=== PATIENT | female | born 1985 | race Hispanic/Latino ===

== ENCOUNTER 2017-12-10 13:48 | Emergency (ER) | payer OTHER ==
--- NOTE | 2017-12-10 15:55 | EDPHYS ---
Physician Documentation [facility] Name: Azalea Nunez Age: 32 yrs Sex: Female : 1985 Arrival Date: 12/10/2017 Time: 13:50 Bed 11 Private MD: Adilson Wellington E ED Physician Sherif Pa HPI: 12/10 15:59 This 32 yrs old Female presents to ER via Ambulatory with complaints of snw Toothache. 15:59 The patient presents with broken tooth/teeth, swelling. The problem is located in the snw upper left first molar (#14). Onset: The symptoms/episode began/occurred 3 month(s) ago, and became worse 3 day(s) ago. Duration: The symptoms are continuous. Associated signs and symptoms: Pertinent positives: fever, swelling. Severity of symptoms: At their worst the symptoms were moderate. It is unknown whether or not the patient has had similar symptoms in the past. The patient has not recently seen a physician. 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 - Social history:: Smoking status: Patient uses tobacco products. ROS: 15:58 Constitutional: Negative for fever, chills, and weight loss, Eyes: Negative for injury, snw pain, redness, and discharge, Neck: Negative for injury, pain, and swelling, Cardiovascular: Negative for chest pain, palpitations, and edema, Respiratory: Negative for shortness of breath, cough, wheezing, and pleuritic chest pain, Abdomen/GI: Negative for abdominal pain, nausea, vomiting, diarrhea, and constipation, Back: Negative for injury and pain, : Negative for injury, bleeding, discharge, and swelling, MS/Extremity: Negative for injury and deformity, Skin: Negative for injury, rash, and discoloration. 15:58 ENT: Positive for ear pain, foreign body sensation, sinus pain. 15:58 Neuro: Positive for headache. Exam: 15:56 Constitutional: This is a well developed, well nourished patient who is awake, alert, snw and in no acute distress. Eyes: Pupils equal round and reactive to light, extra-ocular motions intact. Lids and lashes normal. Conjunctiva and sclera are non-icteric and not injected. Cornea within normal limits. Periorbital areas with no swelling, redness, or edema. Neck: Trachea midline, no thyromegaly or masses palpated, and no cervical lymphadenopathy. Supple, full range of motion without nuchal rigidity, or vertebral point tenderness. No Meningismus. Chest/axilla: Normal chest wall appearance and motion. Nontender with no deformity. No lesions are appreciated. Cardiovascular: Regular rate and rhythm with a normal S1 and S2. No gallops, murmurs, or rubs. Normal PMI, no JVD. No pulse deficits. Respiratory: Lungs have equal breath sounds bilaterally, clear to auscultation and percussion. No rales, rhonchi or wheezes noted. No increased work of breathing, no retractions or nasal flaring. Abdomen/GI: Soft, non-tender, with normal bowel sounds. No distension or tympany. No guarding or rebound. No evidence of tenderness throughout. Back: No spinal tenderness. No costovertebral tenderness. Full range of motion. Skin: Warm, dry with normal turgor. Normal color with no rashes, no lesions, and no evidence of cellulitis. MS/ Extremity: Pulses equal, no cyanosis. Neurovascular intact. Full, normal range of motion. Neuro: Awake and alert, GCS 15, oriented to person, place, time, and situation. Cranial nerves II-XII grossly intact. Motor strength 5/5 in all extremities. Sensory grossly intact. Cerebellar exam normal. Normal gait. Psych: Awake, alert, with orientation to person, place and time. Behavior, mood, and affect are within normal limits. 15:56 Head/face: Noted is swelling, that is mild, of the left cheek. 15:56 ENT: TM's: are normal, Nose: is normal, Mouth: is normal, Posterior pharynx: swelling, that is mild, erythema, that is mild, that is moderate, Dental exam: fractured teeth are noted, specifically the upper left first molar (#14), Voice: is normal. Vital Signs: 14:05 BP 152 / 96; Pulse 63; Resp 18; Temp 97.5(TE); Pulse Ox 99% on R/A; Weight 140.61 kg; hj Height 5 ft. 4 in. (162.56 cm); Pain 10/10; 14:05 Body Mass Index 53.21 (140.61 kg, 162.56 cm) hj MDM: 15:53 Patient medically screened. snw 15:57 Data reviewed: vital signs, nurses notes. Data interpreted: Pulse oximetry: on room air snw is 99 %. Interpretation: normal. Counseling: I had a detailed discussion with the patient and/or guardian regarding: the historical points, exam findings, and any diagnostic results supporting the discharge/admit diagnosis, the presence of at least one elevated blood pressure reading (>120/80) during this emergency department visit, the need for outpatient follow up, to return to the emergency department if symptoms worsen or persist or if there are any questions or concerns that arise at home. Special discussion: I have referred the patient to see his PCP for further evaluation of high blood pressure. Based on the history and exam findings, there is no indication for further emergent testing or inpatient evaluation. I discussed with the patient/guardian the need to see a dentist for further evaluation of the symptoms. I discussed with the patient/guardian the need to see the primary care provider for further evaluation of the symptoms. Administered Medications: 16:24 Drug: Clindamycin 300 mg Route: PO; em 16:24 Drug: TORadol 60 mg Route: IM; Site: right deltoid; em Disposition: 12/11 14:48 Co-signature as Attending Physician, Sherif Pa MD I agree with the assessment and troy plan of care. Disposition: 12/10/17 15:54 Discharged to Home. Impression: Diseases of pulp and periapical tissues. - Condition is Stable. - Discharge Instructions: Dental Abscess, Dental Fracture, Dental Pain. - Prescriptions for chlorhexidine gluconate 0.12 % Mucous Membrane mouthwash - place 15 milliliter by MUCOUS MEMBRANE route 2 times per day after brushing teeth, swish in mouth for 30 seconds then spit out; 480 milliliter. Clindamycin HCl 300 mg Oral Capsule - take 1 capsule by ORAL route every 6 hours for 10 days; 40 capsule. Diclofenac Sodium 75 mg Oral Tablet Sustained Release - take 1 tablet by ORAL route 2 times per day; 30 tablet. - Medication Reconciliation Form, Thank You Letter, Antibiotic Education, Prescription Opioid Use, Work release form form. - Follow up: Private Physician; When: 2 - 3 days; Reason: Recheck today's complaints, Continuance of care, Re-evaluation by your physician. Follow up: Emergency Department; When: As needed; Reason: Worsening of condition. Signatures: Sherif Pa MD MD cha Therrien, Shelly, DRILL PRESS OPERATOR FOR METAL-C DRILL PRESS OPERATOR FOR METAL-Csnw Claudio Chanel, WEB OPERATIONS LEAD WEB OPERATIONS LEAD Kaylan Franco, RN RN Jaxson Rahman RN RN
--- NOTE | 2017-12-10 15:55 | ER ---
Nurse's Notes [facility] Name: Azalea Nunez Age: 32 yrs Sex: Female : 1985 Arrival Date: 12/10/2017 Time: 13:50 Bed 11 Private MD: Adilson Wellington E Diagnosis: Diseases of pulp and periapical tissues Presentation: 12/10 14:02 Presenting complaint: Patient states: L part of my jaw is aching for a week now; i hj thinks its my tooth; i couldn't get an appointment with my dentist right away;. Transition of care: patient was not received from another setting of care. Onset of symptoms was December 10, 2017. Care prior to arrival: None. 14:02 Method Of Arrival: Ambulatory 14:02 Acuity: VEL 4 hj Triage Assessment: 14:04 General: Appears in no apparent distress. uncomfortable, Behavior is calm, cooperative, hj appropriate for age. Pain: Complains of pain in left cheek and left jaw. EENT: Reports pain in left cheek and left jaw. 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 - Social history:: Smoking status: Patient uses tobacco products. Screenin:20 Abuse screen: Denies threats or abuse. Denies injuries from another. Nutritional iw screening: No deficits noted. Tuberculosis screening: No symptoms or risk factors identified. Fall Risk None identified. Assessment: 16:00 General: Appears in no apparent distress. Behavior is calm, cooperative. Pain: iw Complains of pain in left jaw and left cheek. Neuro: Level of Consciousness is awake, alert, obeys commands, Oriented to person, place, time, situation. Cardiovascular: Patient's skin is warm and dry. Respiratory: Respiratory effort is even, unlabored, Respiratory pattern is regular, symmetrical. Derm: Skin is pink, warm \T\ dry. normal. Musculoskeletal: Range of motion: intact in all extremities. Vital Signs: 14:05 BP 152 / 96; Pulse 63; Resp 18; Temp 97.5(TE); Pulse Ox 99% on R/A; Weight 140.61 kg; hj Height 5 ft. 4 in. (162.56 cm); Pain 10/10; 14:05 Body Mass Index 53.21 (140.61 kg, 162.56 cm) ED Course: 13:50 Patient arrived in ED. rg4 13:50 Adilson Wellington MD is Private Physician. rg4 14:03 Triage completed. hj 14:04 Arm band placed on left wrist. hj 15:44 Kaylan Nunez, RN is Primary Nurse. iw 15:46 Bibi Maurer FNP-C is PHCP. snw 15:46 Sherif Pa MD is Attending Physician. snw 16:20 Patient has correct armband on for positive identification. iw 16:20 No provider procedures requiring assistance completed. IV discontinued. iw Administered Medications: 16:24 Drug: Clindamycin 300 mg Route: PO; em 16:24 Drug: TORadol 60 mg Route: IM; Site: right deltoid; em Outcome: 15:54 Discharge ordered by . snw 16:28 Discharged to home ambulatory. iw 16:28 Condition: good 16:28 Discharge instructions given to patient, Instructed on discharge instructions, follow up and referral plans. medication usage, Demonstrated understanding of instructions, follow-up care, medications, Prescriptions given X 2. 16:29 Patient left the ED. iw Signatures: Bibi Maurer FNP-C VICE PRESIDENT PLANNING-Csnw Claudio Chanel, TURNER SPLITTER MACHINE OPERATOR TURNER SPLITTER MACHINE OPERATOR em Kaylan Nunez RN RN iw Jaxson Ojeda RN RN Radha Fernández rg4 Corrections: (The following items were deleted from the chart) 14:07 14:05 Pulse 63bpm; Resp 18bpm; Pulse Ox 99% RA; Temp 97.5F Temporal; 140.61 kg; Height hj 5 ft. 4 in.; BMI: 53.2; Pain 10/10; hj
[2017-12-10 16:33] VITALS: BP 152/96; TEMP 97.5; O2SAT 99
[2017-12-10] MEDS ORDERED: CLINDAMYCIN HCL 150 MG CAP ONE (16:37)
[2017-12-10] MEDS ORDERED: KETOROLAC 30 MG/ML INJ ONE (16:37)
== END 2017-12-10 16:29 | disposition home or self-care (01) ==
LOC: ER 13:48
DX: K04.99 Other diseases of pulp and periapical tissues; F17.220 Nicotine dependence, chewing tobacco, uncomplicated
CPT/HCPCS: 96372; 99283

== ENCOUNTER 2018-05-07 05:15 | Emergency (ER) | payer OTHER ==
--- OUTSIDE RECORDS SUMMARY | 2018-05-07 05:17 | XMS REPORT ---
:1985 [facility] Providers Name Role Phone Sudha Jimenez Provider Role Unavailable Allergies, Adverse Reactions, Alerts Substance Reaction Event Type N.K.D.A. Info Not Available Non Drug Allergy Problems Problem Type Condition Code Onset Dates Condition Status Assessment Abnormal urine odor R82.90 Active Problem Major depressive disorder, single F32.9 Active episode, unspecified Problem Anxiety disorder, unspecified F41.9 Active Problem Essential hypertension I10 Active Assessment Vaginal itching N89.8 Active Problem BMI 60.0-69.9, adult Z68.44 Active Problem Hypomenorrhea N91.5 Active Medications Medication Code Code Instructions Start End Status Dosage System Date Date Losartan [facility] 44027010450 50 MG Orally Active 1 tablet Potassium Once a day Lorazepam [facility] 80626402993 1 MG Orally Active 1 tablet Once a day at bedtime as needed Diflucan [facility] 82930405153 150 MG Orally Apr 29, May 01, Active 1 tablet Take one now 2017 2017 and repeat dose in 72h Citalopram [facility] 72190147487 10 MG Orally Active 1 tablet Hydrobromide Once a day Metoprolol [facility] 77503737336 100 MG Orally Active 1 tablet Tartrate Twice a day with food Trazodone HCl [facility] 79665810346 50 MG Orally Active 1 tablet Once a day at bedtime as needed Bactrim DS [facility] 82899697447 800-160 MG Apr 29, May 02, Active 1 tablet Orally Twice a 2017 2017 day Results Name Result Date Reference Range Unit Abnormality Flag URINALYSIS AUTO W/O SCOPE (68800) ----NIT neg [id number] ----URO 0.2 [id number] ----PROTEIN neg [id number] ----pH 6.5 [id number] ----BLO 2+ [id number] ----GLUCOSE neg [id number] ----KOSTAS neg [id number] ----BILIRUBIN neg [id number] ----KETONES neg [id number] ----SPECIFIC GRAVITY 1.020 [id number] Summary Purpose eClinicalWorks Submission
--- NOTE | 2018-05-07 05:51 | EDPHYS ---
Physician Documentation [facility] Name: Azalea Nunez Age: 32 yrs Sex: Female : 1985 Arrival Date: 05/07/2018 Time: 05:19 Bed 8 Private MD: Adilson Wellington E ED Physician Sherif Pa HPI: 05/07 05:43 This 32 yrs old Female presents to ER via Ambulatory with complaints of troy Headache, Eye Pain. 05:43 The patient complains of pain to the right cheek, right jaw and right zygomatic area. troy The patient describes the headache as aching. Onset: The symptoms/episode began/occurred 5 day(s) ago. Associated signs and symptoms: The patient has no apparent associated signs or symptoms. Severity of symptoms: At its worst the pain was moderate, in the emergency department the pain is unchanged. Headache History: Denies prior headaches. The symptoms are alleviated by nothing. The patient has not experienced similar symptoms in the past. 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 - Social history:: Smoking status: Patient/guardian denies using tobacco. - Ebola Screening: : No symptoms or risks identified at this time. - Family history:: not pertinent. ROS: 05:43 Constitutional: Negative for fever, chills, and weight loss, Eyes: Negative for injury, troy pain, redness, and discharge, Neck: Negative for injury, pain, and swelling, Cardiovascular: Negative for chest pain, palpitations, and edema, Respiratory: Negative for shortness of breath, cough, wheezing, and pleuritic chest pain, Abdomen/GI: Negative for abdominal pain, nausea, vomiting, diarrhea, and constipation, Back: Negative for injury and pain, : Negative for injury, bleeding, discharge, and swelling, MS/Extremity: Negative for injury and deformity, Skin: Negative for injury, rash, and discoloration, Neuro: Negative for headache, weakness, numbness, tingling, and seizure, Psych: Negative for depression, anxiety, suicide ideation, homicidal ideation, and hallucinations, Allergy/Immunology: Negative for hives, rash, and allergies, Endocrine: Negative for neck swelling, polydipsia, polyuria, polyphagia, and marked weight changes, Hematologic/Lymphatic: Negative for swollen nodes, abnormal bleeding, and unusual bruising. 05:43 ENT: Positive for Gum pain Teeth pain Exam: 05:43 Constitutional: This is a well developed, well nourished patient who is awake, alert, troy and in no acute distress. Head/Face: Normocephalic, atraumatic. Eyes: Pupils equal round and reactive to light, extra-ocular motions intact. Lids and lashes normal. Conjunctiva and sclera are non-icteric and not injected. Cornea within normal limits. Periorbital areas with no swelling, redness, or edema. Neck: Trachea midline, no thyromegaly or masses palpated, and no cervical lymphadenopathy. Supple, full range of motion without nuchal rigidity, or vertebral point tenderness. No Meningismus. Chest/axilla: Normal chest wall appearance and motion. Nontender with no deformity. No lesions are appreciated. Cardiovascular: Regular rate and rhythm with a normal S1 and S2. No gallops, murmurs, or rubs. Normal PMI, no JVD. No pulse deficits. Respiratory: Lungs have equal breath sounds bilaterally, clear to auscultation and percussion. No rales, rhonchi or wheezes noted. No increased work of breathing, no retractions or nasal flaring. Abdomen/GI: Soft, non-tender, with normal bowel sounds. No distension or tympany. No guarding or rebound. No evidence of tenderness throughout. Back: No spinal tenderness. No costovertebral tenderness. Full range of motion. Skin: Warm, dry with normal turgor. Normal color with no rashes, no lesions, and no evidence of cellulitis. MS/ Extremity: Pulses equal, no cyanosis. Neurovascular intact. Full, normal range of motion. Neuro: Awake and alert, GCS 15, oriented to person, place, time, and situation. Cranial nerves II-XII grossly intact. Motor strength 5/5 in all extremities. Sensory grossly intact. Cerebellar exam normal. Normal gait. Psych: Awake, alert, with orientation to person, place and time. Behavior, mood, and affect are within normal limits. 05:43 ENT: Mouth: Gums: reddened, swollen, on the lower right third molar (#32). Vital Signs: 05:30 BP 180 / 84; Pulse 75; Resp 18; Temp 97.2(TE); Pulse Ox 97% on R/A; Weight 133.81 kg; tl2 Height 5 ft. 4 in. (162.56 cm); Pain 10/10; 05:30 Body Mass Index 50.64 (133.81 kg, 162.56 cm) tl2 MDM: 05:24 Patient medically screened. troy Administered Medications: 05:51 Drug: Augmentin 875 mg Route: PO; tl2 06:07 Follow up: Response: No adverse reaction tl2 05:51 Drug: Motrin 600 mg Route: PO; tl2 06:07 Follow up: Response: No adverse reaction; Medication administered at discharge. tl2 Disposition: 05/07/18 05:50 Discharged to Home. Impression: Dental caries, Dental root caries. - Condition is Stable. - Discharge Instructions: Dental Abscess, Dental Caries, Adult, Dental Pain, Dental Pain, [id number], Root Canal, Diet and Dental Disease, Dental Caries, [id number]. - Prescriptions for Augmentin 500- 125 mg Oral Tablet - take 1 tablet by ORAL route every 8 hours for 10 days; 30 tablet. Tylenol- Codeine #3 300-30 mg Oral Tablet - take 2 tablets by ORAL route every 6 hours As needed; 26 tablet. - Medication Reconciliation Form, Thank You Letter, Antibiotic Education, Prescription Opioid Use form. - Follow up: Adilson Wellington MD; When: 2 - 3 days; Reason: Recheck today's complaints, Continuance of care, Re-evaluation by your physician. Follow up: Sreedhar Ash DDS; When: 2 - 3 days; Reason: Recheck today's complaints, Re-evaluation by your physician. - Problem is new. - Symptoms have improved. Signatures: Sherif Pa MD MD cha Knox, Taylor, RN RN tl2 Corrections: (The following items were deleted from the chart) 06:07 05:50 05/07/2018 05:50 Discharged to Home. Impression: Dental caries; Dental root tl2 caries. Condition is Stable. Forms are Medication Reconciliation Form, Thank You Letter, Antibiotic Education, Prescription Opioid Use. Follow up: Adilson Wellington; When: 2 - 3 days; Reason: Recheck today's complaints, Continuance of care, Re-evaluation by your physician. Follow up: Sreedhar Ash; When: 2 - 3 days; Reason: Recheck today's complaints, Re-evaluation by your physician. Problem is new. Symptoms have improved. troy
--- NOTE | 2018-05-07 05:51 | ER ---
Nurse's Notes [facility] Name: Azalea Nunez Age: 32 yrs Sex: Female : 1985 Arrival Date: 05/07/2018 Time: 05:19 Bed 8 Private MD: Adilson Wellington E Diagnosis: Dental caries;Dental root caries Presentation: 05/07 05:29 Presenting complaint: Patient states: I think my wisdom teeth are infected. It's making tl2 my ears and my head hurt. symptoms for 5 days. Denies fever. Transition of care: patient was not received from another setting of care. Onset of symptoms was May 02, 2018. Risk Assessment: Do you want to hurt yourself or someone else? Patient reports no desire to harm self or others. Initial Sepsis Screen: Does the patient meet any 2 criteria? No. Patient's initial sepsis screen is negative. Does the patient have a suspected source of infection? No. Patient's initial sepsis screen is negative. Care prior to arrival: None. 05:29 Method Of Arrival: Ambulatory tl2 05:29 Acuity: VEL 4 tl2 Triage Assessment: 05:30 Headache History: Denies prior headaches. General: Appears in no apparent distress. tl2 uncomfortable, Behavior is calm, cooperative, appropriate for age. Pain: Complains of pain in teeth, headache Pain currently is 10 out of 10 on a pain scale. Pain began 2-3 days ago. Also complains of no other associated symptoms. EENT: Dental caries noted in lower left third molar (#17) and lower right third molar (#32). Neuro: Level of Consciousness is awake, alert, obeys commands. Cardiovascular: Denies chest pain. Respiratory: Airway is patent Respiratory effort is even, unlabored, Respiratory pattern is regular, symmetrical. 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 - Social history:: Smoking status: Patient/guardian denies using tobacco. - Ebola Screening: : No symptoms or risks identified at this time. - Family history:: not pertinent. Screenin:32 Abuse screen: Denies threats or abuse. Nutritional screening: No deficits noted. tl2 Tuberculosis screening: No symptoms or risk factors identified. Fall Risk None identified. Assessment: 05:30 General: see triage assessment. tl2 06:06 Reassessment: Patient appears in no apparent distress at this time. Patient and/or tl2 family updated on plan of care and expected duration. Pain level reassessed. Patient is alert, oriented x 3, equal unlabored respirations, skin warm/dry/pink. Pt verbalized understanding of discharge instructions, need for follow up and prescription usage. Vital Signs: 05:30 BP 180 / 84; Pulse 75; Resp 18; Temp 97.2(TE); Pulse Ox 97% on R/A; Weight 133.81 kg; tl2 Height 5 ft. 4 in. (162.56 cm); Pain 10/10; 05:30 Body Mass Index 50.64 (133.81 kg, 162.56 cm) tl2 ED Course: 05:19 Patient arrived in ED. al2 05:19 Adilson Wellington MD is Private Physician. al2 05:24 Sherif Pa MD is Attending Physician. [facility] 05:30 Triage completed. tl2 05:30 Arm band placed on right wrist. tl2 05:32 Patient has correct armband on for positive identification. Bed in low position. Call tl2 light in reach. Side rails up X 1. 05:49 Adilson Wellington MD is Referral Physician. troy 05:49 Sreedhar Ash DDS is Referral Physician. troy 06:05 Roxi Blandon RN is Primary Nurse. tl2 06:06 No provider procedures requiring assistance completed. Patient did not have IV access tl2 during this emergency room visit. Administered Medications: 05:51 Drug: Augmentin 875 mg Route: PO; tl2 06:07 Follow up: Response: No adverse reaction tl2 05:51 Drug: Motrin 600 mg Route: PO; tl2 06:07 Follow up: Response: No adverse reaction; Medication administered at discharge. tl2 Outcome: 05:50 Discharge ordered by . troy 06:06 Discharged to home ambulatory. tl2 06:06 Condition: stable 06:06 Discharge instructions given to patient, Instructed on discharge instructions, follow up and referral plans. medication usage, Demonstrated understanding of instructions, follow-up care, medications, Prescriptions given X 2. 06:07 Patient left the ED. tl2 Signatures: Sherif Pa MD MD cha Knox, Taylor, RN RN tl2 Fatou Smith
[2018-05-07] MEDS ORDERED: IBUPROFEN 200 MG TAB PO ONE (05:52)
[2018-05-07] MEDS ORDERED: AMOX/K CLAV 875 MG TAB ONE (05:53)
[2018-05-07 06:13] VITALS: BP 180/84; TEMP 97.2; O2SAT 97
== END 2018-05-07 06:07 | disposition home or self-care (01) ==
LOC: ER 05:15
DX: K02.7 Dental root caries (principal); I10 Essential (primary) hypertension; F32.9 Major depressive disorder, single episode, unspecified
CPT/HCPCS: 99283

== ENCOUNTER 2018-09-22 08:05 | Emergency (ER) | payer SELFPAY ==
--- OUTSIDE RECORDS SUMMARY | 2018-09-22 08:07 | XMS REPORT ---
:1985 [facility] Care Team Providers Name Role Phone [...] End Status Dosage System Date Date Losartan [facility] 84420930512 50 MG Orally Active 1 tablet Potassium Once a day Lorazepam [facility] 45299672617 1 MG Orally Active 1 tablet Once a day at bedtime as needed Diflucan [facility] 02236981587 150 MG Orally Apr 29, May 01, Active 1 tablet Take one now 2017 2017 and repeat dose in 72h Citalopram [facility] 83783222113 10 MG Orally Active 1 tablet Hydrobromide Once a day Metoprolol [facility] 91171191526 100 MG Orally Active 1 tablet Tartrate Twice a day with food Trazodone HCl [facility] 02575276818 50 MG Orally Active 1 tablet Once a day at bedtime as needed Bactrim DS [facility] 45323555530 800-160 MG Apr 29, May 02, Active 1 tablet Orally Twice a 2017 2017 day Results Name Result Date Reference Range Unit Abnormality Flag URINALYSIS AUTO W/O SCOPE (68409) ----NIT neg [id number] ----URO 0.2 [id number] ----PROTEIN neg [id number] ----pH 6.5 [id number] ----BLO 2+ [id number] ----GLUCOSE neg [id number] ----KOSTAS neg [id number] ----BILIRUBIN neg [id number] ----KETONES neg [id number] ----SPECIFIC GRAVITY 1.020 [id number] Summary Purpose eClinicalWorks Submission
[2018-09-22] MEDS ORDERED: KETOROLAC 30 MG/ML INJ ONE (09:02)
--- NOTE | 2018-09-22 09:04 | ER ---
Nurse's Notes [facility] Name: Azalea Nunez Age: 33 yrs Sex: Female : 1985 Arrival Date: 09/22/2018 Time: 08:06 Bed 16 Private MD: Adilson Wellington E Diagnosis: Disorders of tooth development and eruption Presentation: 09/22 08:28 Presenting complaint: Patient states: dental pain that began last night. Denies fever. ss Transition of care: patient was not received from another setting of care. Onset of symptoms was September 21, 2018. Risk Assessment: Do you want to hurt yourself or someone else? Patient reports no desire to harm self or others. Initial Sepsis Screen: Does the patient meet any 2 criteria? No. Patient's initial sepsis screen is negative. Does the patient have a suspected source of infection? No. Patient's initial sepsis screen is negative. Care prior to arrival: None. 08:28 Method Of Arrival: Ambulatory ss 08:28 Acuity: VEL 5 ss Historical: - Allergies: 08:29 No Known Allergies; ss - Home Meds: 08:29 losartan 100 mg oral tab 1 tab once daily [Active]; Celexa 40 mg Oral tab 1 tab once ss daily [Active]; lorazepam Oral [Active]; - PMHx: 08:29 Depression; Hypertension; ss - PSHx: 08:29 None; ss - Immunization history:: Adult Immunizations up to date. - Social history:: Smoking status: Patient/guardian denies using tobacco. - Ebola Screening: : Patient denies exposure to infectious person Patient denies travel to an Ebola-affected area in the 21 days before illness onset. Screenin:56 Abuse screen: Denies threats or abuse. Denies injuries from another. Nutritional sv screening: No deficits noted. Tuberculosis screening: No symptoms or risk factors identified. Fall Risk None identified. Assessment: 08:45 General: Appears in no apparent distress. Behavior is calm, cooperative. Pain: Pain hb currently is 10 out of 10 on a pain scale. Neuro: Level of Consciousness is awake, alert, obeys commands, Oriented to person, place, time, situation. Cardiovascular: Capillary refill < 3 seconds Patient's skin is warm and dry. Respiratory: Airway is patent Respiratory effort is even, unlabored, Respiratory pattern is regular, symmetrical. GI: No signs and/or symptoms were reported involving the gastrointestinal system. : No signs and/or symptoms were reported regarding the genitourinary system. EENT: Reports right lower jaw and molar pain. Derm: Skin is intact, is healthy with good turgor. Musculoskeletal: No signs and/or symptoms reported regarding the musculoskeletal system. Vital Signs: 08:29 BP 147 / 93; Pulse 96; Resp 16; Temp 97.4(TE); Pulse Ox 99% on R/A; Weight 138.35 kg; ss Height 5 ft. 4 in. (162.56 cm); Pain 10/10; 08:29 Body Mass Index 52.35 (138.35 kg, 162.56 cm) ss ED Course: 08:06 Patient arrived in ED. sb2 08:06 Adilson Wellington MD is Private Physician. sb2 08:28 Triage completed. ss 08:29 Arm band placed on right wrist. ss 08:31 [facility] snw 08:31 Sherif Pa MD is Attending Physician. snw 08:56 Patient has correct armband on for positive identification. Bed in low position. Door sv closed. Head of bed elevated. 08:59 Tina Arellano, RN is Primary Nurse. hb 09:20 No provider procedures requiring assistance completed. Patient did not have IV access hb during this emergency room visit. Administered Medications: 08:55 Drug: TORadol 60 mg Route: IM; Site: right gluteus; sv 09:23 Follow up: Response: No adverse reaction hb Outcome: 09:04 Discharge ordered by . snw 09:20 Discharged to home ambulatory. hb 09:20 Condition: stable 09:20 Discharge instructions given to patient, Instructed on discharge instructions, follow up and referral plans. medication usage, Demonstrated understanding of instructions, follow-up care, medications, Prescriptions given X 1. 09:21 Patient left the ED. hb Signatures: Magy Huizar RN RN Bibi Maurer FNP-C FNP-Janett Benoit RN RN Tina Arellano RN RN Sandra Cisse sb2
--- NOTE | 2018-09-22 09:04 | EDPHYS ---
Physician Documentation [facility] Name: Azalea Nunez Age: 33 yrs Sex: Female : 1985 Arrival Date: 09/22/2018 Time: 08:06 Bed 16 Private MD: Adilson Wellington E ED Physician Sherif Pa HPI: 09/22 09:07 This 33 yrs old Female presents to ER via Ambulatory with complaints of snw Toothache. 09:07 The patient presents with pain, lower wisdom teeth pain. The problem is located in the snw lower right third molar (#32) and lower left third molar (#17). Onset: The symptoms/episode began/occurred suddenly, yesterday. Duration: The symptoms are continuous. Associated signs and symptoms: The patient has no apparent associated signs or symptoms. Severity of symptoms: At their worst the symptoms were moderate. It is unknown whether or not the patient has had similar symptoms in the past. The patient has not recently seen a physician, and does not have an established primary care provider. Historical: - Allergies: 08:29 No Known Allergies; ss - Home Meds: 08:29 losartan 100 mg oral tab 1 tab once daily [Active]; Celexa 40 mg Oral tab 1 tab once ss daily [Active]; lorazepam Oral [Active]; - PMHx: 08:29 Depression; Hypertension; ss - PSHx: 08:29 None; ss - Immunization history:: Adult Immunizations up to date. - Social history:: Smoking status: Patient/guardian denies using tobacco. - Ebola Screening: : Patient denies exposure to infectious person Patient denies travel to an Ebola-affected area in the 21 days before illness onset. ROS: 09:06 Constitutional: Negative for fever, chills, and weight loss, Eyes: Negative for injury, snw pain, redness, and discharge, Neck: Negative for injury, pain, and swelling, Cardiovascular: Negative for chest pain, palpitations, and edema, Respiratory: Negative for shortness of breath, cough, wheezing, and pleuritic chest pain, Abdomen/GI: Negative for abdominal pain, nausea, vomiting, diarrhea, and constipation, Back: Negative for injury and pain, : Negative for injury, bleeding, discharge, and swelling, MS/Extremity: Negative for injury and deformity, Skin: Negative for injury, rash, and discoloration, Neuro: Negative for headache, weakness, numbness, tingling, and seizure. 09:06 ENT: Positive for dental pain, of the lower right third molar (#32) and lower left third molar (#17). Exam: 09:05 Constitutional: This is a well developed, well nourished patient who is awake, alert, snw and in no acute distress. Head/Face: Normocephalic, atraumatic. Eyes: Pupils equal round and reactive to light, extra-ocular motions intact. Lids and lashes normal. Conjunctiva and sclera are non-icteric and not injected. Cornea within normal limits. Periorbital areas with no swelling, redness, or edema. Neck: Trachea midline, no thyromegaly or masses palpated, and no cervical lymphadenopathy. Supple, full range of motion without nuchal rigidity, or vertebral point tenderness. No Meningismus. Chest/axilla: Normal chest wall appearance and motion. Nontender with no deformity. No lesions are appreciated. Cardiovascular: Regular rate and rhythm with a normal S1 and S2. No gallops, murmurs, or rubs. Normal PMI, no JVD. No pulse deficits. Respiratory: Lungs have equal breath sounds bilaterally, clear to auscultation and percussion. No rales, rhonchi or wheezes noted. No increased work of breathing, no retractions or nasal flaring. Abdomen/GI: Soft, non-tender, with normal bowel sounds. No distension or tympany. No guarding or rebound. No evidence of tenderness throughout. Back: No spinal tenderness. No costovertebral tenderness. Full range of motion. Skin: Warm, dry with normal turgor. Normal color with no rashes, no lesions, and no evidence of cellulitis. MS/ Extremity: Pulses equal, no cyanosis. Neurovascular intact. Full, normal range of motion. Neuro: Awake and alert, GCS 15, oriented to person, place, time, and situation. Cranial nerves II-XII grossly intact. Motor strength 5/5 in all extremities. Sensory grossly intact. Cerebellar exam normal. Normal gait. Psych: Awake, alert, with orientation to person, place and time. Behavior, mood, and affect are within normal limits. 09:05 ENT: TM's: are normal, Nose: is normal, Mouth: is normal, Posterior pharynx: is normal, Dental exam: gum swelling, that is moderate, pain, that is moderate, specifically in the lower left third molar (#17) and lower right third molar (#32). Vital Signs: 08:29 BP 147 / 93; Pulse 96; Resp 16; Temp 97.4(TE); Pulse Ox 99% on R/A; Weight 138.35 kg; ss Height 5 ft. 4 in. (162.56 cm); Pain 10/10; 08:29 Body Mass Index 52.35 (138.35 kg, 162.56 cm) ss MDM: 08:33 Patient medically screened. snw 09:06 Data reviewed: vital signs, nurses notes. Data interpreted: Pulse oximetry: on room air snw is 99 %. Interpretation: normal. Counseling: I had a detailed discussion with the patient and/or guardian regarding: the historical points, exam findings, and any diagnostic results supporting the discharge/admit diagnosis, the presence of at least one elevated blood pressure reading (>120/80) during this emergency department visit, the need for outpatient follow up, to return to the emergency department if symptoms worsen or persist or if there are any questions or concerns that arise at home. Special discussion: I have referred the patient to see his PCP for further evaluation of high blood pressure. Based on the history and exam findings, there is no indication for further emergent testing or inpatient evaluation. I discussed with the patient/guardian the need to see a dentist for further evaluation of the symptoms. I discussed with the patient/guardian the need to see the primary care provider for further evaluation of the symptoms. Administered Medications: 08:55 Drug: TORadol 60 mg Route: IM; Site: right gluteus; sv 09:23 Follow up: Response: No adverse reaction hb Disposition: 15:03 Co-signature as Attending Physician, Sherif Pa MD I agree with the assessment and troy plan of care. Disposition: 09/22/18 09:04 Discharged to Home. Impression: Disorders of tooth development and eruption. - Condition is Stable. - Discharge Instructions: Dental Pain, Hypertension, Preventive Dental Care, Adult. - Prescriptions for Diclofenac Sodium 75 mg Oral Tablet Sustained Release - take 1 tablet by ORAL route 2 times per day; 30 tablet. - Medication Reconciliation Form, Thank You Letter, Antibiotic Education, Prescription Opioid Use form. - Follow up: Private Physician; When: 1 - 2 days; Reason: Recheck today's complaints, Continuance of care, Re-evaluation by your physician. Follow up: Emergency Department; When: As needed; Reason: Worsening of condition. Signatures: Magy Huizar, RN Sherif Shearer MD MD cha Therrien, Shelly, BELT TURNER-C BELT TURNER-Csnw Janett Goetz RN RN ss Tina Arellano RN RN hb Corrections: (The following items were deleted from the chart) 09:21 09:04 09/22/2018 09:04 Discharged to Home. Impression: Disorders of tooth development hb and eruption. Condition is Stable. Forms are Medication Reconciliation Form, Thank You Letter, Antibiotic Education, Prescription Opioid Use. Follow up: Private Physician; When: 1 - 2 days; Reason: Recheck today's complaints, Continuance of care, Re-evaluation by your physician. Follow up: Emergency Department; When: As needed; Reason: Worsening of condition. snw
[2018-09-22 09:32] VITALS: BP 147/93; TEMP 97.4; O2SAT 99
== END 2018-09-22 09:21 | disposition home or self-care (01) ==
LOC: ER 08:05
DX: K00.6 Disturbances in tooth eruption (principal); I10 Essential (primary) hypertension; F32.9 Major depressive disorder, single episode, unspecified
CPT/HCPCS: 96372; 99283

== ENCOUNTER 2018-10-22 22:07 | Emergency (ER) | payer SELFPAY ==
--- OUTSIDE RECORDS SUMMARY | 2018-10-22 22:10 | XMS REPORT ---
:1985 [email or web address] Care Team Providers Name Role Phone Sudha [...] End Status Dosage System Date Date Losartan [facility] 00155907895 50 MG Orally Active 1 tablet Potassium Once a day Lorazepam [facility] 01144674635 1 MG Orally Active 1 tablet Once a day at bedtime as needed Diflucan [facility] 64221492407 150 MG Orally Apr 29, May 01, Active 1 tablet Take one now 2017 2017 and repeat dose in 72h Citalopram [facility] 91317019650 10 MG Orally Active 1 tablet Hydrobromide Once a day Metoprolol [facility] 72939728206 100 MG Orally Active 1 tablet Tartrate Twice a day with food Trazodone HCl [facility] 76143604526 50 MG Orally Active 1 tablet Once a day at bedtime as needed Bactrim DS [facility] 47351945415 800-160 MG Apr 29, May 02, Active 1 tablet Orally Twice a 2017 2017 day Results Name Result Date Reference Range Unit Abnormality Flag URINALYSIS AUTO W/O SCOPE (48805) ----NIT neg [id number] ----URO 0.2 [id number] ----PROTEIN neg [id number] ----pH 6.5 [id number] ----BLO 2+ [id number] ----GLUCOSE neg [id number] ----KOSTAS neg [id number] ----BILIRUBIN neg [id number] ----KETONES neg [id number] ----SPECIFIC GRAVITY 1.020 [id number] Summary Purpose eClinicalWorks Submission
[2018-10-22 23:26] LABS: Absolute Lymphocytes (CBC) 1.6 K/uL (0.7-4.9); Absolute Monocytes 0.4 K/uL (0.1-1.3); Basophils % 0.6 % (0-1.3); Hematocrit 32.9 % (36.0-45.0); Lymphocytes % 17.6 % (15.3-44.8); MPV 9.1 fL (7.6-11.3); Monocytes % 4.4 % (3.3-12.3); RBC Red Blood Cell Count 4.07 M/uL (3.86-4.86)
[2018-10-22 23:38] LABS: Albumin 3.5 g/dL (3.4-5.0); Bilirubin Total 0.3 mg/dL (0.2-1.0); Potassium 3.5 mmol/L (3.5-5.1); Protein, Total 7.4 g/dL (6.4-8.2)
[2018-10-22 23:54] LABS: Urine Blood 3+ (NEG); Urine Glucose NEGATIVE (NEG); Urine Protein 2+ (NEG); Urine Specific Gravity 1.025 (1.005-1.030); Urine pH 6.5 (5.0-7.0)
--- NOTE | 2018-10-23 00:11 | ER ---
Nurse's Notes [facility] Name: Azalea Nunez Age: 33 yrs Sex: Female : 1985 Arrival Date: 10/22/2018 Time: 22:12 Bed 26 Private MD: Adilson Wellington E Diagnosis: Acute upper respiratory infection, unspecified;Abnormal uterine and vaginal bleeding, unspecified Presentation: 10/22 22:31 Presenting complaint: Patient states: i have sore throat, cough, body ache and mg2 congestion for 4 days. my cycle has been going on for 2 weeks now and i feel i wanna pass out before i got here. Transition of care: patient was not received from another setting of care. Onset of symptoms was September 2018. Risk Assessment: Do you want to hurt yourself or someone else? Patient reports no desire to harm self or others. Initial Sepsis Screen: Does the patient meet any 2 criteria? No. Patient's initial sepsis screen is negative. Does the patient have a suspected source of infection? No. Patient's initial sepsis screen is negative. Care prior to arrival: None. 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 - Social history:: Smoking status: Patient/guardian denies using tobacco, Patient/guardian denies using alcohol, street drugs, IV drugs. - Ebola Screening: : No symptoms or risks identified at this time. Screenin:36 Abuse screen: Denies threats or abuse. Denies injuries from another. Nutritional mg2 screening: No deficits noted. Tuberculosis screening: No symptoms or risk factors identified. Fall Risk None identified. Assessment: 22:39 General: Appears in no apparent distress. comfortable, Behavior is calm, cooperative. mg2 Pain: Complains of pain in whole body Pain does not radiate. Pain currently is 2 out of 10 on a pain scale. Quality of pain is described as aching, Pain began gradually, 4 days. Neuro: Level of Consciousness is awake, alert, obeys commands, Oriented to person, place, time, situation. Cardiovascular: Capillary refill < 3 seconds Patient's skin is warm and dry. Respiratory: Airway is patent Respiratory effort is even, unlabored, Respiratory pattern is regular, symmetrical. Respiratory: Reports cough that is productive, congestion Breath sounds are clear bilaterally. in right upper lobe, left upper lobe, right middle lobe, left lower lobe and right lower lobe. GI: No signs and/or symptoms were reported involving the gastrointestinal system. : No signs and/or symptoms were reported regarding the genitourinary system. EENT: Throat is clear Reports pain in throat. Derm: Skin is intact, is healthy with good turgor, Skin is pink, warm \T\ dry. normal. Musculoskeletal: No signs and/or symptoms reported regarding the musculoskeletal system. Vital Signs: 22:33 BP 133 / 87; Pulse 91; Resp 18; Temp 98.4; Pulse Ox 98% on R/A; Weight 133.81 kg; mg2 Height 5 ft. 4 in. (162.56 cm); Pain 2/10; 23:48 BP 112 / 50; Pulse 102; Resp 18; Pulse Ox 100% on R/A; mg2 22:33 Body Mass Index 50.64 (133.81 kg, 162.56 cm) mg2 ED Course: 22:12 Patient arrived in ED. am2 22:13 Adilson Wellington MD is Private Physician. am2 22:17 David Andersen RN is Primary Nurse. mg2 22:33 Triage completed. mg2 22:36 Arm band placed on. mg2 22:39 No provider procedures requiring assistance completed. mg2 22:42 Ryan Israel NP is PHCP. pm1 22:42 Sherif Pa MD is Attending Physician. pm1 23:33 Inserted saline lock: 22 gauge in right antecubital area, using aseptic technique. mg2 Blood collected. 23:49 Patient has correct armband on for positive identification. mg2 02 00:24 IV discontinued, intact, bleeding controlled, No redness/swelling at site. Pressure mg2 dressing applied. Administered Medications: No medications were administered Outcome: 00:09 Discharge ordered by . pm1 00:24 Discharged to home ambulatory. mg2 00:24 Condition: stable 00:24 Discharge instructions given to patient, Instructed on discharge instructions, follow up and referral plans. medication usage, Demonstrated understanding of instructions, follow-up care, medications, Prescriptions given X 1. 00:30 Patient left the ED. mg2 Signatures: Ryan Israel NP MANUFACTURING SUPERVISOR pm1 Rosie Chavez am2 David Andersen RN RN mg2 Corrections: (The following items were deleted from the chart) 10/22 23:33 22:39 Patient did not have IV access during this emergency room visit. mg2 mg2
--- NOTE | 2018-10-23 00:12 | EDPHYS ---
Physician Documentation [facility] Name: Azalea Nunez Age: 33 yrs Sex: Female : 1985 Arrival Date: 10/22/2018 Time: 22:12 Bed 26 Private MD: Adilson Wellington E ED Physician Sherif Pa HPI: 10/23 00:05 This 33 yrs old Female presents to ER via Ambulatory with complaints of Cough, pm1 Chest Congestion, Sore Throat. 00:05 The patient or guardian reports cough, with no sputum. Onset: The symptoms/episode pm1 began/occurred 4 day(s) ago. Severity of symptoms: in the emergency department the symptoms are actually worse. Modifying factors: The symptoms are alleviated by nothing, the symptoms are aggravated by nothing. Associated signs and symptoms: Pertinent positives: sore throat, subjective fever and chills. The patient has not experienced similar symptoms in the past. The patient has not recently seen a physician. Patient reports menses for two weeks. Patient with a history of irregular cycles. 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 - Social history:: Smoking status: Patient/guardian denies using tobacco, Patient/guardian denies using alcohol, street drugs, IV drugs. - Ebola Screening: : No symptoms or risks identified at this time. ROS: 10/23 00:05 Eyes: Negative for injury, pain, redness, and discharge. pm1 Neck: Negative for injury, pain, and swelling, Cardiovascular: Negative for chest pain, palpitations, and edema. Abdomen/GI: Negative for abdominal pain, nausea, vomiting, diarrhea, and constipation, Back: Negative for injury and pain, : Negative for injury, bleeding, discharge, and swelling, MS/Extremity: Negative for injury and deformity, Skin: Negative for injury, rash, and discoloration, Neuro: Negative for headache, weakness, numbness, tingling, and seizure. Constitutional: Positive for body aches, chills, fever, Negative for poor PO intake. ENT: Positive for sore throat, Negative for ear pain, rhinorrhea, sinus congestion, sinus pain, difficulty swallowing, difficulty handling secretions, hoarseness. Respiratory: Positive for cough, Negative for shortness of breath, sputum production, wheezing. Exam: 00:05 Constitutional: This is a well developed, well nourished patient who is awake, alert, pm1 and in no acute distress. Head/Face: Normocephalic, atraumatic. Eyes: Pupils equal round and reactive to light, extra-ocular motions intact. Lids and lashes normal. Conjunctiva and sclera are non-icteric and not injected. Cornea within normal limits. Periorbital areas with no swelling, redness, or edema. ENT: Nares patent. No nasal discharge, no septal abnormalities noted. Tympanic membranes are normal and external auditory canals are clear. Oropharynx with no redness, swelling, or masses, exudates, or evidence of obstruction, uvula midline. Mucous membranes moist. Neck: Trachea midline, no thyromegaly or masses palpated, and no cervical lymphadenopathy. Supple, full range of motion without nuchal rigidity, or vertebral point tenderness. No Meningismus. Chest/axilla: Normal chest wall appearance and motion. Nontender with no deformity. No lesions are appreciated. Cardiovascular: Regular rate and rhythm with a normal S1 and S2. No gallops, murmurs, or rubs. Normal PMI, no JVD. No pulse deficits. Respiratory: Lungs have equal breath sounds bilaterally, clear to auscultation and percussion. No rales, rhonchi or wheezes noted. No increased work of breathing, no retractions or nasal flaring. Abdomen/GI: Soft, non-tender, with normal bowel sounds. No distension or tympany. No guarding or rebound. No evidence of tenderness throughout. Back: No spinal tenderness. No costovertebral tenderness. Full range of motion. Skin: Warm, dry with normal turgor. Normal color with no rashes, no lesions, and no evidence of cellulitis. MS/ Extremity: Pulses equal, no cyanosis. Neurovascular intact. Full, normal range of motion. 00:05 Neuro: Orientation: is normal, Motor: is normal, no acute changes, moves all fours, Sensation: is normal, no obvious gross deficits. Vital Signs: 10/22 22:33 BP 133 / 87; Pulse 91; Resp 18; Temp 98.4; Pulse Ox 98% on R/A; Weight 133.81 kg; mg2 Height 5 ft. 4 in. (162.56 cm); Pain 2/10; 23:48 BP 112 / 50; Pulse 102; Resp 18; Pulse Ox 100% on R/A; mg2 22:33 Body Mass Index 50.64 (133.81 kg, 162.56 cm) mg2 MDM: 22:43 Patient medically screened. [facility] 10/23 00:05 Data reviewed: vital signs. Data interpreted: Pulse oximetry: on room air is 100 %. pm1 Interpretation: normal. Counseling: I had a detailed discussion with the patient and/or guardian regarding: the historical points, exam findings, and any diagnostic results supporting the discharge/admit diagnosis, lab results, the need for outpatient follow up, to return to the emergency department if symptoms worsen or persist or if there are any questions or concerns that arise at home. 10/22 22:38 Order name: Strep; Complete Time: 23:25 mg2 10/22 22:38 Order name: Flu; Complete Time: 23:25 mg2 10/22 22:54 Order name: CBC with Diff; Complete Time: 00:04 pm1 10/22 22:54 Order name: CMP; Complete Time: 00:04 pm1 10/22 23:22 Order name: Throat Culture EDTN 10/22 23:35 Order name: Urine Dipstick--Ancillary (enter results); Complete Time: 00:04 mw2 10/22 23:17 Order name: Urine Dipstick-Ancillary (obtain specimen); Complete Time: 23:33 pm1 10/22 23:17 Order name: Urine Test (obtain specimen); Complete Time: 23:33 pm1 10/22 23:35 Order name: Urine --Ancillary (enter results); Complete Time: 00:04 mw2 Administered Medications: No medications were administered Disposition: 10/23/18 00:09 Discharged to Home. Impression: Acute upper respiratory infection, unspecified, Abnormal uterine and vaginal bleeding, unspecified. - Condition is Stable. - Discharge Instructions: Abnormal Uterine Bleeding, Upper Respiratory Infection, Adult, Viral Respiratory Infection. - Prescriptions for Guaifenesin AC 10- 100 mg/5 mL Oral Liquid - take 10 milliliter by ORAL route every 4 hours As needed; 240 milliliter. - Medication Reconciliation Form, Thank You Letter, Antibiotic Education, Prescription Opioid Use, Work release form form. - Follow up: Emergency Department; When: As needed; Reason: Worsening of condition. Follow up: Private Physician; When: 2 - 3 days; Reason: Recheck today's complaints, Continuance of care, Re-evaluation by your physician. - Problem is new. - Symptoms have improved. Addendum: 10/25/2018 09:09 Co-signature as Attending Physician, Sherif Pa MD I agree with the assessment and c lugo plan of care. Signatures: Dispatcher [employer] EDSherif Kyle MD MD cha Marinas, Patrick, STAGE DIRECTOR STAGE DIRECTOR pm1 David Andersen, RN RN mg2 Corrections: (The following items were deleted from the chart) 10/23 00:10 00:09 10/23/2018 00:09 Discharged to Home. Impression: Acute upper respiratory pm1 infection, unspecified. Condition is Stable. Forms are Medication Reconciliation Form, Thank You Letter, Antibiotic Education, Prescription Opioid Use. Follow up: Emergency Department; When: As needed; Reason: Worsening of condition. Follow up: Private Physician; When: 2 - 3 days; Reason: Recheck today's complaints, Continuance of care, Re-evaluation by your physician. Problem is new. Symptoms have improved. pm1 00:30 00:10 10/23/2018 00:09 Discharged to Home. Impression: Acute upper respiratory mg2 infection, unspecified; Abnormal uterine and vaginal bleeding, unspecified. Condition is Stable. Forms are Medication Reconciliation Form, Thank You Letter, Antibiotic Education, Prescription Opioid Use. Follow up: Emergency Department; When: As needed; Reason: Worsening of condition. Follow up: Private Physician; When: 2 - 3 days; Reason: Recheck today's complaints, Continuance of care, Re-evaluation by your physician. Problem is new. Symptoms have improved. pm1
[2018-10-23 00:58] VITALS: TEMP 98.4
[2018-10-23 01:04] VITALS: BP 112/50; O2SAT 100
== END 2018-10-23 00:30 | disposition home or self-care (01) ==
LOC: ER 22:07
DX: J06.9 Acute upper respiratory infection, unspecified (principal); N93.9 Abnormal uterine and vaginal bleeding, unspecified; I10 Essential (primary) hypertension; F32.9 Major depressive disorder, single episode, unspecified
CPT/HCPCS: 36415; 80053; 81003; 81025; 85025; 87070; 87081; 87804; 99283

== ENCOUNTER 2018-12-03 13:54 | Emergency (ER) | payer SELFPAY ==
--- OUTSIDE RECORDS SUMMARY | 2018-12-03 13:59 | XMS REPORT ---
:1985 [address] [facility] Team Providers Name Role Phone Sudha [...] End Status Dosage System Date Date Losartan [facility] 98480370393 50 MG Orally Active 1 tablet Potassium Once a day Lorazepam [facility] 07313330742 1 MG Orally Active 1 tablet Once a day at bedtime as needed Diflucan [facility] 66914520246 150 MG Orally Apr 29, May 01, Active 1 tablet Take one now 2017 2017 and repeat dose in 72h Citalopram [facility] 39625201003 10 MG Orally Active 1 tablet Hydrobromide Once a day Metoprolol [facility] 13701722373 100 MG Orally Active 1 tablet Tartrate Twice a day with food Trazodone HCl [facility] 52288278920 50 MG Orally Active 1 tablet Once a day at bedtime as needed Bactrim DS [facility] 45968545638 800-160 MG Apr 29, May 02, Active 1 tablet Orally Twice a 2017 2017 day Results Name Result Date Reference Range Unit Abnormality Flag URINALYSIS AUTO W/O SCOPE (61321) ----NIT neg [id number] ----URO 0.2 [id number] ----PROTEIN neg [id number] ----pH 6.5 [id number] ----BLO 2+ [id number] ----GLUCOSE neg [id number] ----KOSTAS neg [id number] ----BILIRUBIN neg [id number] ----KETONES neg [id number] ----SPECIFIC GRAVITY 1.020 [id number] Summary Purpose eClinicalWorks Submission
--- NOTE | 2018-12-03 16:32 | EDPHYS ---
Physician Documentation [facility] Name: Azalea Nunez Age: 33 yrs Sex: Female : 1985 Arrival Date: 12/03/2018 Time: 13:55 Bed Treatment Private MD: Adilson Wellington E ED Physician Sherif Pa HPI: 12/03 16:27 This 33 yrs old Female presents to ER via Ambulatory with complaints of snw Toothache. 16:27 The patient presents with pain, swelling. The problem is located in the lower right snw third molar (#32) and lower right second molar (#31) and upper right third molar (#1). Onset: The symptoms/episode began/occurred 4 day(s) ago, and became persistent. Duration: The symptoms are continuous, and are steadily getting worse. Severity of symptoms: At their worst the symptoms were moderate, 4 day(s) ago. It is unknown whether or not the patient has had similar symptoms in the past. It is unknown whether or not the patient has recently seen a physician. PHARM SPEC: 17:29 LMP N/A - wh Historical: - Allergies: 14:09 No Known Allergies; sv - PMHx: 14:09 Depression; Hypertension; sv - PSHx: 14:09 None; sv - Immunization history:: Adult Immunizations unknown. - Social history:: Smoking status: Patient/guardian denies using tobacco. - Ebola Screening: : Patient negative for fever greater than or equal to 101.5 degrees Fahrenheit, and additional compatible Ebola Virus Disease symptoms Patient denies exposure to infectious person No symptoms or risks identified at this time. ROS: 16:26 Constitutional: Negative for fever, chills, and weight loss, Eyes: Negative for injury, snw pain, redness, and discharge, Neck: Negative for injury, pain, and swelling, Cardiovascular: Negative for chest pain, palpitations, and edema, Respiratory: Negative for shortness of breath, cough, wheezing, and pleuritic chest pain, Abdomen/GI: Negative for abdominal pain, nausea, vomiting, diarrhea, and constipation, Back: Negative for injury and pain, : Negative for injury, bleeding, discharge, and swelling, MS/Extremity: Negative for injury and deformity, Skin: Negative for injury, rash, and discoloration, Neuro: Negative for headache, weakness, numbness, tingling, and seizure. 16:26 ENT: Positive for dental pain, of the lower right third molar (#32) and lower right second molar (#31) and upper right third molar (#1). Exam: 16:24 Constitutional: This is a well developed, well nourished patient who is awake, alert, snw and in no acute distress. Head/Face: Normocephalic, atraumatic. Eyes: Pupils equal round and reactive to light, extra-ocular motions intact. Lids and lashes normal. Conjunctiva and sclera are non-icteric and not injected. Cornea within normal limits. Periorbital areas with no swelling, redness, or edema. Neck: Trachea midline, no thyromegaly or masses palpated, and no cervical lymphadenopathy. Supple, full range of motion without nuchal rigidity, or vertebral point tenderness. No Meningismus. Chest/axilla: Normal chest wall appearance and motion. Nontender with no deformity. No lesions are appreciated. Cardiovascular: Regular rate and rhythm with a normal S1 and S2. No gallops, murmurs, or rubs. Normal PMI, no JVD. No pulse deficits. Respiratory: Lungs have equal breath sounds bilaterally, clear to auscultation and percussion. No rales, rhonchi or wheezes noted. No increased work of breathing, no retractions or nasal flaring. Abdomen/GI: Soft, non-tender, with normal bowel sounds. No distension or tympany. No guarding or rebound. No evidence of tenderness throughout. Back: No spinal tenderness. No costovertebral tenderness. Full range of motion. Skin: Warm, dry with normal turgor. Normal color with no rashes, no lesions, and no evidence of cellulitis. MS/ Extremity: Pulses equal, no cyanosis. Neurovascular intact. Full, normal range of motion. Neuro: Awake and alert, GCS 15, oriented to person, place, time, and situation. Cranial nerves II-XII grossly intact. Motor strength 5/5 in all extremities. Sensory grossly intact. Cerebellar exam normal. Normal gait. Psych: Awake, alert, with orientation to person, place and time. Behavior, mood, and affect are within normal limits. 16:24 ENT: External ear(s): are unremarkable, Ear canal(s): are normal, Nose: is normal, Mouth: is normal, Posterior pharynx: is normal, Dental exam: dental caries, gum swelling, that is moderate, specifically in the upper right third molar (#1), lower right second molar (#31) and lower right third molar (#32). Vital Signs: 14:09 BP 125 / 74; Pulse 74; Resp 18; Temp 97.9; Pulse Ox 99% ; Weight 133.81 kg; Height 5 sv ft. 4 in. (162.56 cm); Pain 4/10; 14:09 Body Mass Index 50.64 (133.81 kg, 162.56 cm) sv MDM: 16:16 Patient medically screened. snw 16:34 Data reviewed: vital signs, nurses notes. Data interpreted: Pulse oximetry: on room air snw is 99 %. Interpretation: normal. Counseling: I had a detailed discussion with the patient and/or guardian regarding: the historical points, exam findings, and any diagnostic results supporting the discharge/admit diagnosis, the need for outpatient follow up, to return to the emergency department if symptoms worsen or persist or if there are any questions or concerns that arise at home. Special discussion: Based on the history and exam findings, there is no indication for further emergent testing or inpatient evaluation. I discussed with the patient/guardian the need to see a dentist for further evaluation of the symptoms. I discussed with the patient/guardian the need to see the primary care provider for further evaluation of the symptoms. Administered Medications: 17:01 Drug: Clindamycin 300 mg Route: PO; 17:25 Follow up: Response: No adverse reaction 17:01 Drug: TORadol 60 mg Route: IM; Site: right gluteus; 17:25 Follow up: Response: No adverse reaction Disposition: 12/03/18 16:32 Discharged to Home. Impression: Dental caries. - Condition is Stable. - Discharge Instructions: Dental Pain, Gingivitis, Diet and Dental Disease, Preventive Dental Care, Adult. - Prescriptions for chlorhexidine gluconate 0.12 % Mucous Membrane mouthwash - place 15 milliliter by MUCOUS MEMBRANE route 2 times per day after brushing teeth, swish in mouth for 30 seconds then spit out; 480 milliliter. Clindamycin HCl 300 mg Oral Capsule - take 1 capsule by ORAL route every 6 hours for 10 days; 40 capsule. Diclofenac Sodium 75 mg Oral Tablet Sustained Release - take 1 tablet by ORAL route 2 times per day; 30 tablet. - Medication Reconciliation Form, Thank You Letter, Antibiotic Education, Prescription Opioid Use form. - Follow up: Adilson Wellington MD; When: 2 - 3 days; Reason: Recheck today's complaints, Continuance of care, Re-evaluation by your physician. Follow up: Emergency Department; When: As needed; Reason: Worsening of condition. Addendum: 12/06/2018 07:15 Co-signature as Attending Physician, Sherif Pa MD I agree with the assessment and c lugo plan of care. Signatures: Magy Huizar, RN RN Sherif Pathak MD MD cha Therrien, Shelly, GROUND CREWMAN MISSION SUPPORT-C GROUND CREWMAN MISSION SUPPORT-[place] Judy Martini Corrections: (The following items were deleted from the chart) 12/03 17:31 16:32 12/03/2018 16:32 Discharged to Home. Impression: Dental caries. Condition is wh Stable. Forms are Medication Reconciliation Form, Thank You Letter, Antibiotic Education, Prescription Opioid Use. Follow up: Adilson Wellington; When: 2 - 3 days; Reason: Recheck today's complaints, Continuance of care, Re-evaluation by your physician. Follow up: Emergency Department; When: As needed; Reason: Worsening of condition. snw
--- NOTE | 2018-12-03 16:32 | ER ---
Nurse's Notes [facility] Name: Azalea Nunez Age: 33 yrs Sex: Female : 1985 Arrival Date: 12/03/2018 Time: 13:55 Bed Treatment Private MD: Adilson Wellington E Diagnosis: Dental caries Presentation: 12/03 14:08 Presenting complaint: Patient states: right upper and lower tooth pain, "its my wisdom sv teeth." x 1week. Transition of care: patient was not received from another setting of care. Onset of symptoms was November 26, 2017. Care prior to arrival: None. 14:08 Method Of Arrival: Ambulatory sv 14:08 Acuity: VEL 5 sv 17:28 Risk Assessment: Do you want to hurt yourself or someone else? Patient reports no wh desire to harm self or others. Initial Sepsis Screen: Does the patient meet any 2 criteria? No. Patient's initial sepsis screen is negative. Does the patient have a suspected source of infection? Yes:. Triage Assessment: 14:10 General: Appears in no apparent distress. uncomfortable, obese, Behavior is calm, sv cooperative, appropriate for age. Pain: Complains of pain in right zygomatic area and right cheek Pain currently is 4 out of 10 on a pain scale. Respiratory: Respiratory effort is even, unlabored, Respiratory pattern is regular, symmetrical. RESISTOR TESTER: 17:29 LMP N/A - wh Historical: - Allergies: 14:09 No Known Allergies; sv - PMHx: 14:09 Depression; Hypertension; sv - PSHx: 14:09 None; sv - Immunization history:: Adult Immunizations unknown. - Social history:: Smoking status: Patient/guardian denies using tobacco. - Ebola Screening: : Patient negative for fever greater than or equal to 101.5 degrees Fahrenheit, and additional compatible Ebola Virus Disease symptoms Patient denies exposure to infectious person No symptoms or risks identified at this time. Screenin:28 Abuse screen: Denies threats or abuse. Denies injuries from another. Nutritional wh screening: No deficits noted. Tuberculosis screening: No symptoms or risk factors identified. Fall Risk None identified. Assessment: 16:20 EENT: Reports Tootache. wh 17:26 General: Appears in no apparent distress. Neuro: Level of Consciousness is awake, wh alert, obeys commands. Cardiovascular: Capillary refill < 3 seconds. Respiratory: Airway is patent Respiratory effort is even, unlabored, Respiratory pattern is regular, symmetrical. GI: Abdomen is flat, non-distended. : No signs and/or symptoms were reported regarding the genitourinary system. EENT: Tympanic membrane reddened on mouth. Derm: Skin is intact, is healthy with good turgor, Skin is pink, warm \\T\\ dry. normal. Musculoskeletal: Range of motion: intact in all extremities. Vital Signs: 14:09 BP 125 / 74; Pulse 74; Resp 18; Temp 97.9; Pulse Ox 99% ; Weight 133.81 kg; Height 5 sv ft. 4 in. (162.56 cm); Pain 4/10; 14:09 Body Mass Index 50.64 (133.81 kg, 162.56 cm) sv ED Course: 13:55 Patient arrived in ED. mr 13:55 Adilson Wellington MD is Private Physician. mr 14:09 Triage completed. sv 14:10 Arm band placed on. sv 16:15 [facility]C [facility] snw 16:15 Sherif Pa MD is Attending Physician. snw 16:31 Adilson Wellington MD is Referral Physician. snw 16:52 Judy Martini is Primary Nurse. 17:28 No provider procedures requiring assistance completed. Patient did not have IV access wh during this emergency room visit. 17:30 Patient has correct armband on for positive identification. Bed in low position. Call wh light in reach. Side rails up X 1. Pulse ox on. Administered Medications: 17:01 Drug: Clindamycin 300 mg Route: PO; 17:25 Follow up: Response: No adverse reaction 17:01 Drug: TORadol 60 mg Route: IM; Site: right gluteus; 17:25 Follow up: Response: No adverse reaction Outcome: 16:32 Discharge ordered by . snw 17:30 Discharged to home ambulatory. 17:30 Condition: improved 17:30 Discharge instructions given to patient, Instructed on discharge instructions, follow up and referral plans. no drinking with medication, medication usage, POC Gingivitis Demonstrated understanding of instructions, follow-up care, medications, POC Prescriptions given X 3. 17:31 Patient left the ED. Signatures: Magy Huizar RN RN sv Bibi Maurer, MAINTENANCE DEPARTMENT TECHNICIAN-C MAINTENANCE DEPARTMENT TECHNICIAN-Csnw Leeanne Carmichael mr Vini, Judy wh Corrections: (The following items were deleted from the chart) 14:12 14:09 Pulse 74bpm; Resp 18bpm; Pulse Ox 99%; Temp 97.9F; 133.81 kg; Height 5 ft. 4 in.; sv BMI: 50.6; Pain 4/10; sv
[2018-12-03] MEDS ORDERED: CLINDAMYCIN HCL 150 MG CAP ONE (17:07)
[2018-12-03] MEDS ORDERED: KETOROLAC 30 MG/ML INJ ONE (17:07)
[2018-12-03 17:37] VITALS: BP 125/74; TEMP 97.9; O2SAT 99
== END 2018-12-03 17:31 | disposition home or self-care (01) ==
LOC: ER 13:54
DX: K02.9 Dental caries, unspecified (principal); I10 Essential (primary) hypertension; F32.9 Major depressive disorder, single episode, unspecified
CPT/HCPCS: 96372; 99283

== ENCOUNTER 2019-02-23 06:11 | Emergency (ER) | payer OTHER, SELFPAY ==
--- OUTSIDE RECORDS SUMMARY | 2019-02-23 06:13 | XMS REPORT ---
:1985 [facility] Providers Name Role Phone Suhda Jimenez Provider Role Unavailable Allergies, Adverse Reactions, [...] End Status Dosage System Date Date Losartan [facility] 02108047790 50 MG Orally Active 1 tablet Potassium Once a day Lorazepam [facility] 79297605332 1 MG Orally Active 1 tablet Once a day at bedtime as needed Diflucan [facility] 60038567151 150 MG Orally Apr 29, May 01, Active 1 tablet Take one now 2017 2017 and repeat dose in 72h Citalopram [facility] 44155784669 10 MG Orally Active 1 tablet Hydrobromide Once a day Metoprolol [facility] 10281979236 100 MG Orally Active 1 tablet Tartrate Twice a day with food Trazodone HCl [facility] 80115494666 50 MG Orally Active 1 tablet Once a day at bedtime as needed Bactrim DS [facility] 61671670888 800-160 MG Apr 29, May 02, Active 1 tablet Orally Twice a 2017 2017 day Results Name Result Date Reference Range Unit Abnormality Flag URINALYSIS AUTO W/O SCOPE (49076) ----NIT neg [id number] ----URO 0.2 [id number] ----PROTEIN neg [id number] ----pH 6.5 [id number] ----BLO 2+ [id number] ----GLUCOSE neg [id number] ----KOSTAS neg [id number] ----BILIRUBIN neg [id number] ----KETONES neg [id number] ----SPECIFIC GRAVITY 1.020 [id number] Summary Purpose eClinicalWorks Submission
[2019-02-23] MEDS ORDERED: ONDANSETRON 4 MG (ODT) TAB ONE (06:52)
--- NOTE | 2019-02-23 07:33 | EDPHYS ---
Physician Documentation [facility] Name: Azalea Nunez Age: 33 yrs Sex: Female : 1985 Arrival Date: 02/23/2019 Time: 06:11 Bed 6 Private MD: Adilson Wellington E ED Physician Darrin Josue HPI: 02/23 06:56 This 33 yrs old Female presents to ER via Ambulatory with complaints of snw Abdominal Pain, Diarrhea. 06:56 The patient presents with abdominal pain that is diffuse. Onset: The symptoms/episode snw began/occurred suddenly, yesterday. The symptoms do not radiate. Associated signs and symptoms: Pertinent positives: nausea, vomiting, and diarrhea, fever. The symptoms are described as crampy. Severity of pain: in the emergency department the pain has improved. It is unknown whether or not the patient has had similar symptoms in the past. The patient has not recently seen a physician. 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 - Social history:: Smoking status: Patient/guardian denies using tobacco, Patient/guardian denies using alcohol, street drugs. - Ebola Screening: : Patient negative for fever greater than or equal to 101.5 degrees Fahrenheit, and additional compatible Ebola Virus Disease symptoms Patient denies exposure to infectious person Patient denies travel to an Ebola-affected area in the 21 days before illness onset. ROS: 06:54 Eyes: Negative for injury, pain, redness, and discharge, ENT: Negative for injury, snw pain, and discharge, Neck: Negative for injury, pain, and swelling, Cardiovascular: Negative for chest pain, palpitations, and edema, Abdomen/GI: Negative for abdominal pain, nausea, vomiting, diarrhea, and constipation, Back: Negative for injury and pain, : Negative for injury, bleeding, discharge, and swelling, MS/Extremity: Negative for injury and deformity, Skin: Negative for injury, rash, and discoloration, Neuro: Negative for headache, weakness, numbness, tingling, and seizure. 06:54 Respiratory: Negative for shortness of breath, cough, wheezing, and pleuritic chest pain, Abdomen/GI: Positive for abdominal pain, nausea, vomiting, diarrhea, denies constipation. 06:54 Constitutional: Positive for body aches, fever, malaise, N/V/D. Exam: 06:54 Constitutional: This is a well developed, well nourished patient who is awake, alert, snw and in no acute distress. Head/Face: Normocephalic, atraumatic. Eyes: Pupils equal round and reactive to light, extra-ocular motions intact. Lids and lashes normal. Conjunctiva and sclera are non-icteric and not injected. Cornea within normal limits. Periorbital areas with no swelling, redness, or edema. ENT: Nares patent. No nasal discharge, no septal abnormalities noted. Tympanic membranes are normal and external auditory canals are clear. Oropharynx with no redness, swelling, or masses, exudates, or evidence of obstruction, uvula midline. Mucous membranes moist. Neck: Trachea midline, no thyromegaly or masses palpated, and no cervical lymphadenopathy. Supple, full range of motion without nuchal rigidity, or vertebral point tenderness. No Meningismus. Chest/axilla: Normal chest wall appearance and motion. Nontender with no deformity. No lesions are appreciated. Cardiovascular: Regular rate and rhythm with a normal S1 and S2. No gallops, murmurs, or rubs. Normal PMI, no JVD. No pulse deficits. Respiratory: Lungs have equal breath sounds bilaterally, clear to auscultation and percussion. No rales, rhonchi or wheezes noted. No increased work of breathing, no retractions or nasal flaring. Abdomen/GI: Soft, non-tender, with normal bowel sounds. No distension or tympany. No guarding or rebound. No evidence of tenderness throughout. Back: No spinal tenderness. No costovertebral tenderness. Full range of motion. Skin: Warm, dry with normal turgor. Normal color with no rashes, no lesions, and no evidence of cellulitis. MS/ Extremity: Pulses equal, no cyanosis. Neurovascular intact. Full, normal range of motion. Neuro: Awake and alert, GCS 15, oriented to person, place, time, and situation. Cranial nerves II-XII grossly intact. Motor strength 5/5 in all extremities. Sensory grossly intact. Cerebellar exam normal. Normal gait. Psych: Awake, alert, with orientation to person, place and time. Behavior, mood, and affect are within normal limits. Vital Signs: 06:20 BP 116 / 69; Pulse 102; Resp 18; Temp 99.2; Pulse Ox 98% ; Weight 127.01 kg; Height 5 rr5 ft. 4 in. (162.56 cm); Pain 7/10; 07:37 BP 110 / 69; Pulse 95; Resp 17; Pulse Ox 97% on R/A; ae4 06:20 Body Mass Index 48.06 (127.01 kg, 162.56 cm) rr5 MDM: 06:14 Patient medically screened. snw 07:33 Data reviewed: vital signs, nurses notes. Data interpreted: Pulse oximetry: on room air snw is 98 %. Interpretation: normal. Counseling: I had a detailed discussion with the patient and/or guardian regarding: the historical points, exam findings, and any diagnostic results supporting the discharge/admit diagnosis, lab results, the need for outpatient follow up, to return to the emergency department if symptoms worsen or persist or if there are any questions or concerns that arise at home. Special discussion: Based on the history and exam findings, there is no indication for further emergent testing or inpatient evaluation. I discussed with the patient/guardian the need to see the primary care provider for further evaluation of the symptoms. 02/23 06:27 Order name: Flu; Complete Time: 07:08 snw Administered Medications: 06:42 Drug: Zofran 4 mg Route: PO; ea 07:39 Follow up: Response: Nausea is decreased ae4 Disposition: 09:22 Co-signature as Attending Physician, Darrin Josue MD. rn Disposition: 02/23/19 07:32 Discharged to Home. Impression: Generalized abdominal pain, Nausea and vomiting, Diarrhea, unspecified. - Condition is Stable. - Discharge Instructions: Food Choices to Help Relieve Diarrhea, Adult, Diarrhea, Adult, Nausea and Vomiting, Adult, Rehydration, Adult. - Prescriptions for promethazine 25 mg Oral Tablet - take 1 tablet by ORAL route every 6 hours As needed; 20 tablet. - Work release form, Medication Reconciliation Form, Thank You Letter, Antibiotic Education, Prescription Opioid Use form. - Follow up: Adilson Wellington MD; When: 1 - 2 days; Reason: Recheck today's complaints, Continuance of care, Re-evaluation by your physician. Follow up: Emergency Department; When: As needed; Reason: Worsening of condition. Signatures: Dispatcher [employer] EDMS Bibi Maurer, LOW EMISSION AUTOMOBILE DESIGNER-C LOW EMISSION AUTOMOBILE DESIGNER-Csnw Darrin Josue MD MD rn Antunez, Elena, RN RN ea Roque, Raymond, RN RN rr5 Jose Juan Gary RN RN ae4 Corrections: (The following items were deleted from the chart) 07:39 07:32 02/23/2019 07:32 Discharged to Home. Impression: Generalized abdominal pain; ae4 Nausea and vomiting; Diarrhea, unspecified. Condition is Stable. Forms are Medication Reconciliation Form, Thank You Letter, Antibiotic Education, Prescription Opioid Use. Follow up: Adilson Wellington; When: 1 - 2 days; Reason: Recheck today's complaints, Continuance of care, Re-evaluation by your physician. Follow up: Emergency Department; When: As needed; Reason: Worsening of condition. snw
--- NOTE | 2019-02-23 07:33 | ER ---
Nurse's Notes [facility] Name: Azalea Nunez Age: 33 yrs Sex: Female : 1985 Arrival Date: 02/23/2019 Time: 06:11 Bed 6 Private MD: Adilson Wellington E Diagnosis: Generalized abdominal pain;Nausea and vomiting;Diarrhea, unspecified Presentation: 02/23 06:20 Presenting complaint: Patient states: it started yesterday having abdominal rr5 pain,nausea, vomiting, diarrhea 10x watery and had a fever max of 101 F. Transition of care: patient was not received from another setting of care. Onset of symptoms was February 22, 2019. Risk Assessment: Do you want to hurt yourself or someone else? Patient reports no desire to harm self or others. Initial Sepsis Screen: Does the patient meet any 2 criteria? No. Patient's initial sepsis screen is negative. Does the patient have a suspected source of infection? No. Patient's initial sepsis screen is negative. Care prior to arrival: None. 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 - Social history:: Smoking status: Patient/guardian denies using tobacco, Patient/guardian denies using alcohol, street drugs. - Ebola Screening: : Patient negative for fever greater than or equal to 101.5 degrees Fahrenheit, and additional compatible Ebola Virus Disease symptoms Patient denies exposure to infectious person Patient denies travel to an Ebola-affected area in the 21 days before illness onset. Screenin:31 Abuse screen: Denies threats or abuse. Denies injuries from another. Nutritional rr5 screening: No deficits noted. Tuberculosis screening: No symptoms or risk factors identified. Fall Risk None identified. Total Roque Fall Scale indicates No Risk (0-24 pts). Assessment: 06:20 General: Appears in no apparent distress. uncomfortable, Behavior is calm, cooperative, rr5 appropriate for age, Reports fever for. Pain: Complains of pain in abdomen Pain does not radiate. Pain currently is 7 out of 10 on a pain scale. Quality of pain is described as aching, Pain began gradually, Is intermittent. Neuro: Level of Consciousness is awake, alert, obeys commands, Oriented to person, place, time, situation, Appropriate for age. 06:20 Cardiovascular: Capillary refill < 3 seconds Patient's skin is warm and dry. rr5 Respiratory: Airway is patent Respiratory effort is even, unlabored, Respiratory pattern is regular, symmetrical. GI: Abdomen is obese, Bowel sounds present X 4 quads. Abd is soft Reports lower abdominal pain, upper abdominal pain, diarrhea, nausea, vomiting. : No signs and/or symptoms were reported regarding the genitourinary system. EENT: No signs and/or symptoms were reported regarding the EENT system. Derm: Skin is intact, Skin temperature is warm. Musculoskeletal: Capillary refill < 3 seconds, Range of motion: intact in all extremities. 07:38 Reassessment: Patient appears in no apparent distress at this time. Patient states ae4 feeling better. Vital Signs: 06:20 BP 116 / 69; Pulse 102; Resp 18; Temp 99.2; Pulse Ox 98% ; Weight 127.01 kg; Height 5 rr5 ft. 4 in. (162.56 cm); Pain 7/10; 07:37 BP 110 / 69; Pulse 95; Resp 17; Pulse Ox 97% on R/A; ae4 06:20 Body Mass Index 48.06 (127.01 kg, 162.56 cm) rr5 ED Course: 06:11 Patient arrived in ED. am2 06:12 Osmel Mark MD is Private Physician. am2 06:12 Adilson Wellington MD is Private Physician. am2 06:14 Bibi Maurer FNP-C [facility]. snw 06:14 Darrin Josue MD is Attending Physician. snw 06:26 Triage completed. rr5 06:30 Arm band placed on. rr5 06:30 Patient has correct armband on for positive identification. Bed in low position. Call rr5 light in reach. Side rails up X2. Pulse ox on. NIBP on. 07:01 Gaye, Magy, RN is Primary Nurse. sv 07:31 Adilson Wellington MD is Referral Physician. snw 07:38 No provider procedures requiring assistance completed. Patient did not have IV access ae4 during this emergency room visit. Administered Medications: 06:42 Drug: Zofran 4 mg Route: PO; ea 07:39 Follow up: Response: Nausea is decreased ae4 Outcome: 07:32 Discharge ordered by . snw 07:38 Discharged to home ambulatory. ae4 07:38 Condition: stable 07:38 Discharge instructions given to patient, Instructed on discharge instructions, follow up and referral plans. medication usage, Demonstrated understanding of instructions, Prescriptions given X 1. 07:39 Patient left the ED. ae4 Signatures: Magy Huizar, RN RN Bibi Bingham, AUDIT MACHINE OPERATOR-C AUDIT MACHINE OPERATOR-Csnw Rosie Chavez Elena RN Jim Zhong ea RN RN rr5 Jose Juan Gary RN RN ae4
[2019-02-23 07:50] VITALS: TEMP 99.2
[2019-02-23 07:52] VITALS: BP 110/69; O2SAT 97
== END 2019-02-23 07:39 | disposition home or self-care (01) ==
LOC: ER 06:11
DX: R11.2 Nausea with vomiting, unspecified (principal); R19.7 Diarrhea, unspecified; I10 Essential (primary) hypertension; F32.9 Major depressive disorder, single episode, unspecified; F41.9 Anxiety disorder, unspecified
CPT/HCPCS: 87804; 99283

== ENCOUNTER 2019-05-09 08:13 | Emergency (ER) | payer OTHER, SELFPAY ==
--- OUTSIDE RECORDS SUMMARY | 2019-05-09 08:15 | XMS REPORT ---
:1985 [facility] Providers Name Role Phone [...] End Status Dosage System Date Date Losartan [facility] 72568817467 50 MG Orally Active 1 tablet Potassium Once a day Lorazepam [facility] 96867743264 1 MG Orally Active 1 tablet Once a day at bedtime as needed Diflucan [facility] 23748140433 150 MG Orally Apr 29, May 01, Active 1 tablet Take one now 2017 2017 and repeat dose in 72h Citalopram [facility] 22929090149 10 MG Orally Active 1 tablet Hydrobromide Once a day Metoprolol [facility] 33543548107 100 MG Orally Active 1 tablet Tartrate Twice a day with food Trazodone HCl [facility] 46665990500 50 MG Orally Active 1 tablet Once a day at bedtime as needed Bactrim DS [facility] 55971411122 800-160 MG Apr 29, May 02, Active 1 tablet Orally Twice a 2017 2017 day Results Name Result Date Reference Range Unit Abnormality Flag URINALYSIS AUTO W/O SCOPE (63930) ----NIT neg [id number] ----URO 0.2 [id number] ----PROTEIN neg [id number] ----pH 6.5 [id number] ----BLO 2+ [id number] ----GLUCOSE neg [id number] ----KOSTAS neg [id number] ----BILIRUBIN neg [id number] ----KETONES neg [id number] ----SPECIFIC GRAVITY 1.020 [id number] Summary Purpose eClinicalWorks Submission
[2019-05-09 09:11] LABS: Urine Blood NEGATIVE (NEG); Urine Glucose NEGATIVE (NEG); Urine Protein TRACE (NEG)
[2019-05-09 09:13] LABS: Urine Bacteria <20 /HPF (<20); Urine RBC NONE SEEN /HPF (NONE SEEN)
[2019-05-09 09:14] LABS: Urine Culture Reflex Order NOT NEEDED
--- NOTE | 2019-05-09 09:50 | ER ---
Nurse's Notes [facility] Name: Azalea Nunez Age: 33 yrs Sex: Female : 1985 Arrival Date: 05/09/2019 Time: 08:18 Bed 16 Private MD: Adilson Wellington E Diagnosis: Dysuria;Conjunctivitis Presentation: 05/09 08:30 Presenting complaint: Patient states: has seasonal allergies, eyelids are red, burning iw X 1 month, also thinks she has a UTI, has low back pain, pelvic pressure and a foul odor. Transition of care: patient was not received from another setting of care. Onset of symptoms was April 08, 2019. Risk Assessment: Do you want to hurt yourself or someone else? Patient reports no desire to harm self or others. Initial Sepsis Screen: Does the patient meet any 2 criteria? No. Patient's initial sepsis screen is negative. Does the patient have a suspected source of infection? No. Patient's initial sepsis screen is negative. Care prior to arrival: None. 08:30 Method Of Arrival: Ambulatory iw 08:30 Acuity: VEL 4 iw Triage Assessment: 08:56 General: Appears in no apparent distress. comfortable, Behavior is calm, cooperative, bp appropriate for age. 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 - Social history:: Smoking status: Patient/guardian denies using tobacco. - Ebola Screening: : Patient negative for fever greater than or equal to 101.5 degrees Fahrenheit, and additional compatible Ebola Virus Disease symptoms Patient denies exposure to infectious person Patient denies travel to an Ebola-affected area in the 21 days before illness onset No symptoms or risks identified at this time. Screenin:52 Abuse screen: Denies threats or abuse. Denies injuries from another. Nutritional bp screening: No deficits noted. Tuberculosis screening: No symptoms or risk factors identified. Fall Risk None identified. Assessment: 08:52 General: Appears in no apparent distress. comfortable, Behavior is calm, cooperative, bp appropriate for age. Pain: Complains of pain in back. Neuro: No deficits noted. Cardiovascular: No deficits noted. Respiratory: No deficits noted. GI: No signs and/or symptoms were reported involving the gastrointestinal system. : Reports burning with urination. EENT: No deficits noted. Derm: No deficits noted. Musculoskeletal: No deficits noted. 09:34 Reassessment: ALL CURRENT ORDERS COMPLETED, DISPO PENDING. bp 09:59 Reassessment: PT D/C HOME AMBULATORY, DX WITH CONJUNCTIVITIS. bp Vital Signs: 08:32 BP 126 / 92; Pulse 77; Resp 16; Temp 98.2(TE); Pulse Ox 99% on R/A; Weight 133.81 kg; iw Height 5 ft. 4 in. (162.56 cm); Pain 8/10; 09:35 BP 131 / 87; Pulse 81; Resp 16; Pulse Ox 100% ; bp 08:32 Body Mass Index 50.64 (133.81 kg, 162.56 cm) ED Course: 08:18 Patient arrived in ED. mr 08:18 Adilson Wellington MD is Private Physician. mr 08:32 Triage completed. iw 08:33 [facility]ie Villafana FNP-C [facility]. kb 08:33 Darrin Josue MD is Attending Physician. kb 08:42 Urine collected: clean catch specimen, clear. ms 08:51 Josesito Mcgee, NGOC is Primary Nurse. bp 08:52 Patient has correct armband on for positive identification. Bed in low position. Call bp light in reach. Side rails up X2. 08:52 Arm band placed on. bp 09:59 No provider procedures requiring assistance completed. Patient did not have IV access bp during this emergency room visit. Administered Medications: No medications were administered Outcome: 09:50 Discharge ordered by . kb 10:00 Discharged to home ambulatory. bp 10:00 Condition: stable 10:00 Discharge instructions given to patient, Instructed on discharge instructions, follow up and referral plans. medication usage, Demonstrated understanding of instructions, follow-up care, medications, Prescriptions given X 1. 10:01 Patient left the ED. bp Signatures: Billie Villafana FNP-C FNP-Leeanne Middleton mr Kaylan Nunez, RN RN iw Valentina Florian ms, Brian, RN RN bp Corrections: (The following items were deleted from the chart) 10:00 09:35 Pulse 81bpm; Resp 16bpm; Pulse Ox 100%; bp bp
--- NOTE | 2019-05-09 09:50 | EDPHYS ---
Physician Documentation [facility] Name: Azalea Nunez Age: 33 yrs Sex: Female : 1985 Arrival Date: 05/09/2019 Time: 08:18 Bed 16 Private MD: Adilson Wellington E ED Physician Darrin Josue HPI: 05/09 09:17 This 33 yrs old Female presents to ER via Ambulatory with complaints of Eye kb Problem, Urinary Problem. 09:18 The patient presents with urinary symptoms, dysuria, frequency, hematuria. Onset: The kb symptoms/episode began/occurred 2 week(s) ago. Modifying factors: The symptoms are alleviated by nothing, the symptoms are aggravated by urinating. Associated signs and symptoms: Pertinent positives: dysuria, hematuria, urinary frequency. Severity of symptoms: At their worst the symptoms were moderate, in the emergency department the symptoms are unchanged. The patient has not experienced similar symptoms in the past. The patient has not recently seen a physician. 09:24 Pt reports suprapubic discomfort, dysuria, frequency, urinating small amounts, kb intermittent hematuria for 2 weeks. Also reports eyes burning and matting for a month. . 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 - Social history:: Smoking status: Patient/guardian denies using tobacco. - Ebola Screening: : Patient negative for fever greater than or equal to 101.5 degrees Fahrenheit, and additional compatible Ebola Virus Disease symptoms Patient denies exposure to infectious person Patient denies travel to an Ebola-affected area in the 21 days before illness onset No symptoms or risks identified at this time. ROS: 09:24 Constitutional: Negative for fever, chills, and weight loss, ENT: Negative for injury, kb pain, and discharge, Neck: Negative for injury, pain, and swelling, Cardiovascular: Negative for chest pain, palpitations, and edema, Respiratory: Negative for shortness of breath, cough, wheezing, and pleuritic chest pain, Abdomen/GI: Negative for abdominal pain, nausea, vomiting, diarrhea, and constipation, Back: Negative for injury and pain, MS/Extremity: Negative for injury and deformity, Skin: Negative for injury, rash, and discoloration, Neuro: Negative for headache, weakness, numbness, tingling, and seizure. 09:24 Eyes: Positive for matting, pain. 09:24 : Positive for urinary symptoms, urinary frequency, small amounts, hematuria, burning with urination. Exam: 09:30 Constitutional: This is a well developed, well nourished patient who is awake, alert, kb and in no acute distress. Head/Face: Normocephalic, atraumatic. ENT: Nares patent. No nasal discharge, no septal abnormalities noted. Tympanic membranes are normal and external auditory canals are clear. Oropharynx with no redness, swelling, or masses, exudates, or evidence of obstruction, uvula midline. Mucous membranes moist. Neck: Trachea midline, no thyromegaly or masses palpated, and no cervical lymphadenopathy. Supple, full range of motion without nuchal rigidity, or vertebral point tenderness. No Meningismus. Chest/axilla: Normal chest wall appearance and motion. Nontender with no deformity. No lesions are appreciated. Cardiovascular: Regular rate and rhythm with a normal S1 and S2. No gallops, murmurs, or rubs. Normal PMI, no JVD. No pulse deficits. Respiratory: Lungs have equal breath sounds bilaterally, clear to auscultation and percussion. No rales, rhonchi or wheezes noted. No increased work of breathing, no retractions or nasal flaring. Abdomen/GI: Soft, non-tender, with normal bowel sounds. No distension or tympany. No guarding or rebound. No evidence of tenderness throughout. Back: No spinal tenderness. No costovertebral tenderness. Full range of motion. Skin: Warm, dry with normal turgor. Normal color with no rashes, no lesions, and no evidence of cellulitis. MS/ Extremity: Pulses equal, no cyanosis. Neurovascular intact. Full, normal range of motion. Neuro: Awake and alert, GCS 15, oriented to person, place, time, and situation. Cranial nerves II-XII grossly intact. Motor strength 5/5 in all extremities. Sensory grossly intact. Cerebellar exam normal. Normal gait. 09:30 Eyes: Conjunctiva: exudate, bilaterally. Vital Signs: 08:32 BP 126 / 92; Pulse 77; Resp 16; Temp 98.2(TE); Pulse Ox 99% on R/A; Weight 133.81 kg; iw Height 5 ft. 4 in. (162.56 cm); Pain 8/10; 09:35 BP 131 / 87; Pulse 81; Resp 16; Pulse Ox 100% ; bp 08:32 Body Mass Index 50.64 (133.81 kg, 162.56 cm) iw MDM: 08:33 Patient medically screened. kb 09:29 Data reviewed: vital signs, nurses notes. Data interpreted: Pulse oximetry: on room air kb is 99 %. Interpretation: normal. 09:49 Counseling: I had a detailed discussion with the patient and/or guardian regarding: the kb historical points, exam findings, and any diagnostic results supporting the discharge/admit diagnosis, lab results, the need for outpatient follow up, a family practitioner, to return to the emergency department if symptoms worsen or persist or if there are any questions or concerns that arise at home. 05/09 08:39 Order name: Urine Microscopic Only; Complete Time: 09:15 kb 05/09 08:43 Order name: Urine Dipstick--Ancillary (enter results) bd 05/09 08:33 Order name: Urine Dipstick-Ancillary (obtain specimen); Complete Time: 08:42 kb 05/09 08:45 Order name: Urine --Ancillary (enter results); Complete Time: 09:15 bd Administered Medications: No medications were administered Disposition: 13:23 Co-signature as Attending Physician, Darrin Josue MD. rn Disposition: 05/09/19 09:50 Discharged to Home. Impression: Dysuria, Conjunctivitis. - Condition is Stable. - Discharge Instructions: Dysuria, Bacterial Conjunctivitis, [id number]. - Prescriptions for Erythromycin 5 mg/gram (0.5 %) Ophthalmic Ointment - apply 1 centimeter by OPHTHALMIC route 2-3 times daily for 7 days; 1 tube. - Medication Reconciliation Form, Thank You Letter, Antibiotic Education, Prescription Opioid Use, Work release form form. - Follow up: Emergency Department; When: As needed; Reason: Worsening of condition. Follow up: Private Physician; When: 2 - 3 days; Reason: Recheck today's complaints, Continuance of care, Re-evaluation by your physician. Signatures: Dispatcher [employer] EDBillie Segura, HALINA CASAS-Kaylan Diggs, RN RN Darrin Malik MD MD rn Peltier, Josesito, NGOC RN bp Corrections: (The following items were deleted from the chart) 10:01 09:50 05/09/2019 09:50 Discharged to Home. Impression: Dysuria; Conjunctivitis. bp Condition is Stable. Forms are Medication Reconciliation Form, Thank You Letter, Antibiotic Education, Prescription Opioid Use. Follow up: Emergency Department; When: As needed; Reason: Worsening of condition. Follow up: Private Physician; When: 2 - 3 days; Reason: Recheck today's complaints, Continuance of care, Re-evaluation by your physician. kb
[2019-05-09 10:13] VITALS: TEMP 98.2
[2019-05-09 10:15] VITALS: BP 131/87; O2SAT 100
== END 2019-05-09 10:01 | disposition home or self-care (01) ==
LOC: ER 08:13
DX: H10.9 Unspecified conjunctivitis (principal); I10 Essential (primary) hypertension; F41.9 Anxiety disorder, unspecified; F32.9 Major depressive disorder, single episode, unspecified
CPT/HCPCS: 81003; 81015; 81025; 99283

== ENCOUNTER 2020-01-30 06:59 | Emergency (ER) | payer OTHER ==
--- OUTSIDE RECORDS SUMMARY | 2020-01-30 07:02 | XMS REPORT ---
:1985 Author Organization [facility] t Address [address] [place] [address] Care Team Providers Name Role Phone Unavailable Unavailable Unavailable Problems Condition Condition Condition Status Onset Resolution Last Treatin g Comments Name Details Category Date Date Treatment Clinician Date Abnormal Abnormal Diagnosis Active urine odor urine odor Major Major Problem Active depressive depressive disorder, disorder, single single episode, episode, unspecified unspecified Anxiety Anxiety Problem Active disorder, disorder, unspecified unspecified Essential Essential Problem Active hypertensio hypertensio n n Vaginal Vaginal Diagnosis Active itching itching BMI BMI Problem Active 60.0-69.9, 60.0-69.9, adult adult Hypomenorrh Hypomenorrh Problem Active ea ea Allergies, Adverse Reactions, Alerts This patient has no known allergies or adverse reactions. Medications Ordered Filled Start Stop Current Ordering Indication Dosage Frequency Signature Comments Components Medication Medication Date Date Medication? Clinician (SIG) Name Name Bactrim DS Bactrim DS 2018- No Sudha 1 table t 04-29 Jimenez 00:00: 00:00 00 :00 Diflucan Diflucan 2017- No Sudha 1 tablet 04-29 Jimenez 00:00: 00:00 00 :00 Losartan Losartan Yes Sudha 1 tablet Potassium Potassium Jimenez Lorazepam Lorazepam Yes Sudha 1 tablet Jimenez at bedtime as needed Citalopram Citalopram Yes Sudha 1 tablet Hydrobromid Hydrobromid Jimenez e e Metoprolol Metoprolol Yes Sudha 1 tablet Tartrate Tartrate Jimenez with food Trazodone Trazodone Yes Sudha 1 tablet HCl HCl Jimenez at bedtime as needed Encounters Start End Encounter Admission Attending Care Care Encounter Date/Time Date/Time Type Type Clinicians Facility Department ID 2018-04-29 2018-04-29 [facility] [id number] 10:30:00 10:30:00 [facility]
--- OUTSIDE RECORDS SUMMARY | 2020-01-30 07:02 | XMS REPORT ---
:1985 Author Organization [employer] Care Team Providers Name Role Phone Sudha Jimenez Provider Role Unavailable Allergies, Adverse Reactions, Alerts Substance Reaction Event Type N.K.D.A. Info Not Available Non Drug Allergy Problems Problem Type Condition Code Onset Dates Condition Statu s Assessment Abnormal urine odor R82.90 Active Problem Major depressive disorder, single F32.9 Active episode, unspecified Problem Anxiety disorder, unspecified F41.9 Active Problem Essential hypertension I10 Activ e Assessment Vaginal itching N89.8 Active Problem BMI 60.0-69.9, adult Z68.44 Active Problem Hypomenorrhea N91.5 Active Medications Medication Code Code Instructions Start End Status Dosage System Date Date Losartan [facility] 00968466359 50 MG Orally Active 1 tabl et Potassium Once a day Lorazepam [facility] 19516492387 1 MG Orally Active 1 tabl et Once a day at bedtime as needed Diflucan [facility] 97674468629 150 MG Orally Apr 29, May 01, Active 1 tab let Take one now 2017 2017 and repeat dose in 72h Citalopram [facility] 78562426563 10 MG Orally Active 1 ta blet Hydrobromide Once a day Metoprolol [facility] 72486124798 100 MG Orally Active 1 t ablet Tartrate Twice a day with food Trazodone HCl [facility] 23401221149 50 MG Orally Active 1 tablet Once a day at bedtime as needed Bactrim DS [facility] 04033850832 800-160 MG Apr 29, May 02, Active 1 tabl et Orally Twice a 2018 2018 day Results Name Result Date Reference Range Unit Abnormali ty Flag URINALYSIS AUTO W/O SCOPE (78922) ----NIT neg [id number] ----URO 0.2 [id number] ----PROTEIN neg [id number] ----pH 6.5 [id number] ----BLO 2+ [id number] ----GLUCOSE neg [id number] ----KOSTAS neg [id number] ----BILIRUBIN neg [id number] ----KETONES neg [id number] ----SPECIFIC GRAVITY 1.020 [id number] Summary Purpose [employer] Submission
[2020-01-30 08:34] LABS: Urine Bacteria <20 /HPF (<20); Urine Culture Reflex Order NOT NEEDED; Urine Mucus LIGHT /HPF (NONE SEEN); Urine RBC <5 /HPF (NONE SEEN)
[2020-01-30 08:34] LABS: Urine Blood NEGATIVE (NEG); Urine Glucose NEGATIVE (NEG); Urine Protein NEGATIVE (NEG); Urine Specific Gravity >1.030 (1.005-1.030); Urine pH 6.5 (5.0-7.0)
--- NOTE | 2020-01-30 08:37 | EDPHYS ---
Physician Documentation [facility] Name: Azalea Nuenz Age: 34 yrs Sex: Female : 1985 Arrival Date: 01/30/2020 Time: 07:01 Bed 7 Private MD: ARPAN Physician Sherif Pa HPI: 01/29 08:01 This 34 yrs old Female presents to ER via Ambulatory with complaints of Rash. pm1 08:01 The patient's rash thought to be caused by an unknown cause. The rash is located on the pm1 groin. The rash can be described as itchy and reddish. Onset: The symptoms/episode began/occurred 1 month ago. On and off, present for 1 week, gone for 2-3 days then returns. Associated signs and symptoms: Pertinent positives: whitish, vaginal discharge that resembles her prior BV. Severity of symptoms: Pain is currently a 0 / 10. Treatment given at home: None. Last seen by Wellington 3 months ago. 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 - Social history:: Smoking status: Patient denies any tobacco usage or history of. ROS: 08:19 Constitutional: Negative for fever, chills, and weight loss, Cardiovascular: Negative pm1 for chest pain, palpitations, and edema, Respiratory: Negative for shortness of breath, cough, wheezing, and pleuritic chest pain, Abdomen/GI: Negative for abdominal pain, nausea, vomiting, diarrhea, and constipation, Back: Negative for injury and pain. 08:19 MS/Extremity: Negative for injury and deformity. 08:19 Neuro: Negative for headache, weakness, numbness, tingling, and seizure. 08:19 : Positive for vaginal discharge, Negative for urinary symptoms, burning with urination, vaginal bleeding, vaginal itching. 08:19 Skin: Positive for rash, of the groin. Exam: 08:19 Constitutional: This is a well developed, well nourished patient who is awake, alert, pm1 and in no acute distress. Head/Face: Normocephalic, atraumatic. Chest/axilla: Normal chest wall appearance and motion. Nontender with no deformity. No lesions are appreciated. 08:19 Back: No spinal tenderness. No costovertebral tenderness. Full range of motion. 08:19 MS/ Extremity: Pulses equal, no cyanosis. Neurovascular intact. Full, normal range of motion. 08:19 Cardiovascular: Exam negative for acute changes, Rate: normal, Rhythm: regular, Pulses: no pulse deficits are appreciated. 08:19 Respiratory: Exam negative for acute changes, respiratory distress, shortness of breath. 08:19 Abdomen/GI: Inspection: obese Palpation: abdomen is soft and non-tender, in all quadrants. 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 08:19 Skin: Appearance: normal except for affected area, consistent with Tinea. 08:19 Neuro: Exam negative for acute changes, Orientation: is normal, Mentation: is normal, Motor: is normal, moves all fours, Gait: is steady, at a normal pace, without difficulty. Vital Signs: 07:09 BP 148 / 95; Pulse 90; Resp 17; Temp 98; Pulse Ox 100% ; Weight 142.88 kg; Height 5 ft. bp 4 in. (162.56 cm); 08:56 BP 151 / 89; Pulse 81; Resp 17; Temp 98; Pulse Ox 100% ; bp 07:09 Body Mass Index 54.07 (142.88 kg, 162.56 cm) bp MDM: 07:08 Patient medically screened. [facility] 08:35 Data reviewed: vital signs. Data interpreted: Pulse oximetry: on room air is 100 %. pm1 Interpretation: normal. Counseling: I had a detailed discussion with the patient and/or guardian regarding: the historical points, exam findings, and any diagnostic results supporting the discharge/admit diagnosis, lab results, the need for outpatient follow up, to return to the emergency department if symptoms worsen or persist or if there are any questions or concerns that arise at home. 01/29 07:32 Order name: Gurmeet Patton; Complete Time: 08:03 pm1 01/29 07:32 Order name: GC (GONORR/CHLAMYDIA) Probe pm1 01/29 07:32 Order name: Urine Microscopic Only; Complete Time: 08:34 pm1 01/29 08:23 Order name: Urine Dipstick--Ancillary (enter results); Complete Time: 08:40 em1 01/29 08:23 Order name: Urine --Ancillary (enter results); Complete Time: 08:40 em1 01/29 07:32 Order name: Pelvic Exam Setup; Complete Time: 07:45 pm1 01/29 07:32 Order name: Urine Dipstick-Ancillary (obtain specimen); Complete Time: 08:22 pm1 01/29 07:32 Order name: Urine Test (obtain specimen); Complete Time: 08:22 pm1 Administered Medications: 08:15 Drug: Rocephin (cefTRIAXone) 1 grams Route: IM; Site: left gluteus; bp 08:58 Follow up: Response: No adverse reaction bp 08:15 Drug: AZITHromycin 1 grams Route: PO; bp 08:58 Follow up: Response: No adverse reaction bp Disposition: 20:23 Co-signature as Attending Physician, Sherif Pa MD I agree with the assessment and troy plan of care. Disposition: 01/30/20 08:37 Discharged to Home. Impression: Tinea cruris. - Condition is Stable. - Discharge Instructions: Jock Itch. - Prescriptions for Clotrimazole 1 % Topical Cream - Apply to affected area 1 application by TOPICAL route every 12 hours; 15 gram. - Medication Reconciliation Form, Thank You Letter, Antibiotic Education, Prescription Opioid Use form. - Follow up: Adilson Wellington MD; When: 2 - 3 days; Reason: Recheck today's complaints, Continuance of care, Re-evaluation by your physician. Follow up: Private Physician; When: 2 - 3 days; Reason: Recheck today's complaints, Continuance of care, Re-evaluation by your physician. Follow up: Emergency Department; When: As needed; Reason: Worsening of condition. - Problem is new. - Symptoms have improved. Signatures: Dispatcher [employer] Sherif Castorena MD MD cha Marinas, Patrick, PLASMA TABLE OPERATOR PLASMA TABLE OPERATOR pm1 Josesito Mcgee, RN RN bp Corrections: (The following items were deleted from the chart) 08:38 08:37 01/30/2020 08:37 Discharged to Home. Impression: Tinea cruris. Condition is pm1 Stable. Forms are Medication Reconciliation Form, Thank You Letter, Antibiotic Education, Prescription Opioid Use. Follow up: Adilson Wellington; When: 2 - 3 days; Reason: Recheck today's complaints, Continuance of care, Re-evaluation by your physician. Problem is new. Symptoms have improved. pm1 08:58 08:38 01/30/2020 08:37 Discharged to Home. Impression: Tinea cruris. Condition is bp Stable. Discharge Instructions: Hamzah Itch. Prescriptions for Clotrimazole 1 % Topical Cream - Apply to affected area 1 application by TOPICAL route every 12 hours; 15 gram. and Forms are Medication Reconciliation Form, Thank You Letter, Antibiotic Education, Prescription Opioid Use. Follow up: Private Physician; When: 2 - 3 days; Reason: Recheck today's complaints, Continuance of care, Re-evaluation by your physician. Follow up: Emergency Department; When: As needed; Reason: Worsening of condition. Problem is new. Symptoms have improved. pm1
--- NOTE | 2020-01-30 08:37 | ER ---
Nurse's Notes [facility] Name: Azalea Nunez Age: 34 yrs Sex: Female : 1985 Arrival Date: 01/30/2020 Time: 07:01 Bed 7 Private MD: Diagnosis: Tinea cruris Presentation: 01/29 07:09 Chief complaint: Patient states: GROIN AND PERINEAL RASH x1 MONTH WITH FOUL ODOR. bp Coronavirus screen: Proceed with normal triage. Ebola Screen: No symptoms or risks identified at this time. Initial Sepsis Screen: Does the patient meet any 2 criteria? No. Patient's initial sepsis screen is negative. Does the patient have a suspected source of infection? No. Patient's initial sepsis screen is negative. Risk Assessment: Do you want to hurt yourself or someone else? Patient reports no desire to harm self or others. Onset of symptoms is unknown. 07:09 Method Of Arrival: Ambulatory bp 07:09 Acuity: VEL 5 bp Triage Assessment: 07:11 General: Appears in no apparent distress. comfortable, obese, Behavior is calm, bp cooperative, appropriate for age. Pain: Denies pain. EENT: No deficits noted. Neuro: No deficits noted. Cardiovascular: No deficits noted. Respiratory: No deficits noted. GI: No signs and/or symptoms were reported involving the gastrointestinal system. : No signs and/or symptoms were reported regarding the genitourinary system. Derm: Reports burning, itching, GROIN AND PERINEAL RASH. Musculoskeletal: No deficits noted. 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 - Social history:: Smoking status: Patient denies any tobacco usage or history of. Screenin:05 Abuse screen: Denies threats or abuse. Denies injuries from another. Nutritional bp screening: No deficits noted. Tuberculosis screening: No symptoms or risk factors identified. Fall Risk None identified. Assessment: 07:05 General: SEE TRIAGE NOTE. bp 08:56 Reassessment: PT D/C HOME AMBULATORY, DX WITH TINEA CRURIS. bp Vital Signs: 07:09 BP 148 / 95; Pulse 90; Resp 17; Temp 98; Pulse Ox 100% ; Weight 142.88 kg; Height 5 ft. bp 4 in. (162.56 cm); 08:56 BP 151 / 89; Pulse 81; Resp 17; Temp 98; Pulse Ox 100% ; bp 07:09 Body Mass Index 54.07 (142.88 kg, 162.56 cm) bp ED Course: 07:01 Patient arrived in ED. cl3 07:02 Josesito Mcgee, RN is Primary Nurse. bp 07:05 Patient has correct armband on for positive identification. Bed in low position. Call bp light in reach. Side rails up X2. 07:07 Ryan Israel [facility]. pm1 07:08 Sherif Pa MD is Attending Physician. troy 07:11 Triage completed. bp 07:12 Arm band placed on. bp 08:35 Adilson Wellington MD is Referral Physician. pm1 08:38 Referral Physician role handed off by Adilson Wellington MD pm1 08:56 No provider procedures requiring assistance completed. Patient did not have IV access bp during this emergency room visit. Administered Medications: 08:15 Drug: Rocephin (cefTRIAXone) 1 grams Route: IM; Site: left gluteus; bp 08:58 Follow up: Response: No adverse reaction bp 08:15 Drug: AZITHromycin 1 grams Route: PO; bp 08:58 Follow up: Response: No adverse reaction bp Outcome: 08:37 Discharge ordered by . pm1 08:56 Discharged to home ambulatory. bp 08:56 Condition: stable 08:56 Discharge instructions given to patient, Instructed on discharge instructions, follow up and referral plans. medication usage, Demonstrated understanding of instructions, follow-up care, medications, Prescriptions given X 1. 08:58 Patient left the ED. bp Signatures: Sherif Pa MD MD cha Marinas, Patrick, NP MEDICAL AND SCIENTIFIC ILLUSTRATOR pm1 Josesito Mcgee, NGOC RN Maranda Valadez cl3
[2020-01-30] MEDS ORDERED: LIDOCAINE 1% MPF 2 ML AMPULE ONE (08:42)
[2020-01-30] MEDS ORDERED: AZITHROMYCIN 250 MG TAB ONE (08:42)
[2020-01-30] MEDS ORDERED: CEFTRIAXONE 1000 MG/VIAL ONE (08:42)
[2020-01-30 09:12] VITALS: TEMP 98; O2SAT 100
[2020-01-30 09:14] VITALS: BP 151/89
[2020-02-02 07:10] LABS: C.trachomatis RNA,TMA Not Detected (Not Detected)
== END 2020-01-30 08:58 | disposition home or self-care (01) ==
LOC: ER 06:59
DX: B35.6 Tinea cruris (principal); I10 Essential (primary) hypertension; F34.1 Dysthymic disorder
CPT/HCPCS: 81025; 87210; 87590; 87490; 96372; 99283; J2001; 81003; 81015

== ENCOUNTER 2020-04-06 02:20 | Emergency (ER) | payer OTHER ==
--- OUTSIDE RECORDS SUMMARY | 2020-04-06 02:22 | XMS REPORT | Continuity of Care Document ---
:1985 Author Organization [facility] t Address [address] [place] [address] Care Team Providers Name Role Phone Unavailable Unavailable Unavailable Problems Condition Condition Condition Status Onset Resolution Last Treating Co mments Source Name Details Category Date Date Treatment Clinician Date Abnormal Abnormal Diagnosis Active [facility] urine odor urine odor [facility] - [facility] Major Major Problem Active [facility] depressive depressive [facility] - disorder, disorder, Neeraj candace single single l episode, episode, Outpat i unspecifie unspecifie en t d d Clinics Anxiety Anxiety Problem Active [facility] disorder, disorder, Luke s - unspecifie unspecifie Me moria d d [facility] Essential Essential Problem Active [facility] hypertensi hypertensi [facility] - on on [facility] Vaginal Vaginal Diagnosis [facility] BMI BMI Problem Active [facility] 60.0-69.9, 60.0-69.9, Cass kes - adult adult [facility] Hypomenorr Hypomenorr Problem Active [facility] Allergies, Adverse Reactions, Alerts This patient has no known allergies or adverse reactions. Medications Ordered Filled Start Stop Current Ordering Indication Dosage Frequency Signature Comments Components Source Medication Medication Date Date Medication? Clinician (SIG) Name Name Bactrim DS Bactrim DS 2017- No Sudha [address] [facility] 04-29 Jimenez [facility] - 00:00: 00:00 [facility] 00 :00 [facility] Diflucan Diflucan 2017- No Sudha [address] [facility] 04-29 [facility]enez [facility] - 00:[facility]: 00:00 [facility] 00 :00 l Outpat[facility] ent Clinics Losartan Losartan Yes Sudha [address] [facility] Potassium Potassium [facility] Lorazepam Lorazepam Yes Sudha [address] [facility] Jimenez at bedtime [facility] - as needed [facility] Citalopram Citalopram Yes Sudha [address] [facility] Hydrobromid Hydrobromid Jimenez L ukes - e e Memoria l [facility] ent [facility]ics Metoprolol Metoprolol Yes Sudha [address] [facility] Tartrate Tartrate [facility] Trazodone Trazodone Yes Sudha [address] [facility] HCl HCl Jimenez at bedtime [facility] - as needed [facility] l [facility] Procedures This patient has no known procedures. Encounters Start End Encounter Admission Attending Care Care Encounter Source Date/Time Date/Time Type Type Clinicians Facility Department ID 2018-04-29 2018-04-29 Outpatient Jeni Greer [id number] [facility] 10:30:00 10:30:00 [facility] Neeraj candace Clinic l [facility] Clinics Results This patient has no known results.
[2020-04-06] MEDS ORDERED: NA CHLORIDE 0.9% 1,000 ML ONE (03:10)
[2020-04-06 03:28] LABS: Absolute Lymphocytes (CBC) 1.5 K/uL (0.7-4.9); Basophils % 0.6 % (0-1.3); Hematocrit 37.6 % (36.0-45.0); Lymphocytes % 19.8 % (15.3-44.8); MPV 8.9 fL (7.6-11.3); RBC Red Blood Cell Count 4.69 M/uL (3.86-4.86)
[2020-04-06 03:39] LABS: ALT/SGPT 31 U/L (12-78); AST/SGOT 16 U/L (15-37); Albumin 3.6 g/dL (3.4-5.0); Alkaline Phosphatase 160 U/L (45-117); BUN Blood Urea Nitrogen 11 mg/dL (7-18); Bicarbonate 28 mmol/L (21-32); Bilirubin Direct < 0.1 mg/dL (0-0.2); Bilirubin Total 0.2 mg/dL (0.2-1.0); Glucose Level 154 mg/dL (74-106); Magnesium 2.2 mg/dL (1.8-2.4); NT PRO-BNP 10 pg/mL (<125); Potassium 3.6 mmol/L (3.5-5.1); Protein, Total 7.7 g/dL (6.4-8.2); Sodium Level 141 mmol/L (136-145); Troponin (Emerg Dept Use Only) < 0.02 ng/mL (0.0-0.045)
--- NOTE | 2020-04-06 03:51 | EDPHYS ---
Physician Documentation [facility] Name: Azalea Nunez Age: 34 yrs Sex: Female : 1985 Arrival Date: 04/06/2020 Time: 02:25 Bed 6 Private MD: Adilson Wellington E ED Physician Sherif Pa HPI: 04/06 02:35 This 34 yrs old Female presents to ER via EMS with complaints of Dizziness. troy 02:35 The patient presents with dizziness. Onset: The symptoms/episode began/occurred just troy prior to arrival. Context: occurred at work, occurred while the patient was walking. Modifying factors: The symptoms are alleviated by nothing, the symptoms are aggravated by nothing. Associated signs and symptoms: The patient has no apparent associated signs or symptoms. Severity of symptoms: At their worst the symptoms were mild in the emergency department the symptoms are unchanged. Patient's baseline: Neuro:. The patient has not experienced similar symptoms in the past. 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 - Social history:: Smoking status: Patient reports the use of cigarette tobacco products, 3-4 cigarettes daily, Patient/guardian denies using alcohol, street drugs. - Family history:: not pertinent. ROS: 02:35 Constitutional: Negative for fever, chills, and weight loss, Eyes: Negative for injury, troy pain, redness, and discharge, ENT: Negative for injury, pain, and discharge, Neck: Negative for injury, pain, and swelling, Cardiovascular: Negative for chest pain, palpitations, and edema, Respiratory: Negative for shortness of breath, cough, wheezing, and pleuritic chest pain, Abdomen/GI: Negative for abdominal pain, nausea, vomiting, diarrhea, and constipation, Back: Negative for injury and pain, : Negative for injury, bleeding, discharge, and swelling, MS/Extremity: Negative for injury and deformity, Skin: Negative for injury, rash, and discoloration, Psych: Negative for depression, anxiety, suicide ideation, homicidal ideation, and hallucinations, Allergy/Immunology: Negative for hives, rash, and allergies, Endocrine: Negative for neck swelling, polydipsia, polyuria, polyphagia, and marked weight changes, Hematologic/Lymphatic: Negative for swollen nodes, abnormal bleeding, and unusual bruising. 02:35 Neuro: Positive for dizziness. Exam: 02:35 Constitutional: This is a well developed, well nourished patient who is awake, alert, troy and in no acute distress. Head/Face: Normocephalic, atraumatic. Eyes: Pupils equal round and reactive to light, extra-ocular motions intact. Lids and lashes normal. Conjunctiva and sclera are non-icteric and not injected. Cornea within normal limits. Periorbital areas with no swelling, redness, or edema. ENT: Nares patent. No nasal discharge, no septal abnormalities noted. Tympanic membranes are normal and external auditory canals are clear. Oropharynx with no redness, swelling, or masses, exudates, or evidence of obstruction, uvula midline. Mucous membranes moist. Neck: Trachea midline, no thyromegaly or masses palpated, and no cervical lymphadenopathy. Supple, full range of motion without nuchal rigidity, or vertebral point tenderness. No Meningismus. Chest/axilla: Normal chest wall appearance and motion. Nontender with no deformity. No lesions are appreciated. Cardiovascular: Regular rate and rhythm with a normal S1 and S2. No gallops, murmurs, or rubs. Normal PMI, no JVD. No pulse deficits. Respiratory: Lungs have equal breath sounds bilaterally, clear to auscultation and percussion. No rales, rhonchi or wheezes noted. No increased work of breathing, no retractions or nasal flaring. Abdomen/GI: Soft, non-tender, with normal bowel sounds. No distension or tympany. No guarding or rebound. No evidence of tenderness throughout. Back: No spinal tenderness. No costovertebral tenderness. Full range of motion. Skin: Warm, dry with normal turgor. Normal color with no rashes, no lesions, and no evidence of cellulitis. MS/ Extremity: Pulses equal, no cyanosis. Neurovascular intact. Full, normal range of motion. Neuro: Awake and alert, GCS 15, oriented to person, place, time, and situation. Cranial nerves II-XII grossly intact. Motor strength 5/5 in all extremities. Sensory grossly intact. Cerebellar exam normal. Normal gait. Psych: Awake, alert, with orientation to person, place and time. Behavior, mood, and affect are within normal limits. 02:35 Musculoskeletal/extremity: DVT Exam: No signs of deep vein thrombosis. no pain, no swelling, no tenderness, negative Homans' sign noted on exam, no appreciated bluish discoloration, no erythema, no increased warmth. 02:40 ECG was reviewed by the Attending Physician. [facility] 03:30 Cardiovascular: Rate: normal, Rhythm: regular, Pulses: Pulses are 4+ in bilateral [facility] radial, brachial, femoral, popliteal, posterior tibial and and dorsalis pedis arteries.. Heart sounds: normal, Edema: is not appreciated, JVD: is not appreciated. Vital Signs: 02:17 BP 142 / 61; Pulse 81; Resp 20; Temp 98.0(O); Pulse Ox 100% on R/A; Weight 142.88 kg fc (R); Height 5 ft. 4 in. (162.56 cm) (R); Pain 0/10; 03:38 BP 138 / 83; Pulse 78; Resp 17 S; Pulse Ox 100% on R/A; jd3 04:02 BP 139 / 59 Supine; Pulse 77; jd3 04:02 BP 140 / 82 Sitting; Pulse 80; jd3 04:02 BP 136 / 78 Standing; Pulse 75; Resp 17 S; Pulse Ox 97% on R/A; jd3 02:17 Body Mass Index 54.07 (142.88 kg, 162.56 cm) MDM: 02:28 Patient medically screened. troy 02:37 Data reviewed: vital signs, nurses notes, lab test result(s), EKG, radiologic studies, troy plain films. 02:37 Differential diagnosis: cardiac arrhythmia, generalized weakness, hypovolemia, troy idiopathic dizziness, near-syncope, . Data interpreted: equipment monitor phototypesetting: rate is 81 beats/min, Pulse oximetry: on. Test interpretation: by ED physician or midlevel provider: ECG, plain radiologic studies. Counseling: I had a detailed discussion with the patient and/or guardian regarding: the historical points, exam findings, and any diagnostic results supporting the discharge/admit diagnosis, the presence of at least one elevated blood pressure reading (>120/80) during this emergency department visit, lab results, radiology results, the need for outpatient follow up, for definitive care, a family practitioner. ED course: NON TOXIC , WELL HYDRATED, NO COMPLAINTS. 04/06 02:35 Order name: Basic Metabolic Panel [facility] 04/06 02:35 Order name: CBC with Diff; Complete Time: 03:45 [facility] 04/06 02:35 Order name: LFT's; Complete Time: 03:45 [facility] 04/06 02:35 Order name: Magnesium; Complete Time: 03:45 [facility] 04/06 02:35 Order name: NT PRO-BNP; Complete Time: 03:45 [facility] 04/06 02:35 Order name: Troponin (emerg Dept Use Only); Complete Time: 03:45 [facility] 04/06 02:35 Order name: XRAY Chest (1 view) [facility] 04/06 02:35 Order name: EKG; Complete Time: 02:36 [facility] 04/06 02:35 Order name: Urine Culture [facility] 04/06 02:35 Order name: D-Dimer; Complete Time: 03:45 [facility] 04/06 02:35 Order name: Basic Metabolic Panel; Complete Time: 03:45 [facility] 04/06 04:05 Order name: Urine --Ancillary (enter results) [facility] 04/06 04:05 Order name: Urine Dipstick--Ancillary (enter results) tt 04/06 02:35 Order name: Cardiac monitoring; Complete Time: 02:41 [facility] 04/06 02:35 Order name: EKG - Nurse/Tech; Complete Time: 02:41 [facility] 04/06 02:35 Order name: IV Saline Lock; Complete Time: 03:07 [facility] 04/06 02:35 Order name: Labs collected and sent; Complete Time: 03:07 [facility] 04/06 02:35 Order name: O2 Per Protocol; Complete Time: 02:41 [facility] 04/06 02:35 Order name: O2 Sat Monitoring; Complete Time: 02:41 [facility] 04/06 02:35 Order name: Urine Test (obtain specimen); Complete Time: 04:02 [facility] 04/06 03:50 Order name: Orthostatics; Complete Time: 04:02 [facility] EC:40 Rate is 78 beats/min. Rhythm is regular. QRS Dexter is Normal. IL interval is normal. QRS troy interval is normal. QT interval is normal. No Q waves. T waves are Normal. No ST changes noted. Clinical impression: NSR w/ Non-specific ST/T Changes and No evidence of ischemia. Interpreted by me. Reviewed by me. Administered Medications: 03:07 Drug: NS 0.9% 1000 ml Route: IV; Rate: 1 bolus; Site: right antecubital; jd3 04:12 Follow up: Response: No adverse reaction; IV Status: Completed infusion; IV Intake: jd3 1000ml Disposition: 04/06/20 03:50 Discharged to Home. Impression: Dizziness and giddiness, Weakness. - Condition is Stable. - Discharge Instructions: Dizziness, Obesity, Adult, Aspirin and Your Heart, Dizziness, [id number], Obesity, Adult, [id number]. - Medication Reconciliation Form, Thank You Letter, Antibiotic Education, Prescription Opioid Use, Work release form form. - Follow up: Adilson Wellington; When: 2 - 3 days; Reason: Recheck today's complaints, Continuance of care, Re-evaluation by your physician. - Problem is new. - Symptoms have improved. Signatures: Dispatcher [employer] EDMS Sherif Pa MD MD cha Chretien, Felicia, RN RN Kalpesh Braden RN RN jd3 Corrections: (The following items were deleted from the chart) 04:12 03:50 04/06/2020 03:50 Discharged to Home. Impression: Dizziness and giddiness; jd3 Weakness. Condition is Stable. Discharge Instructions: Dizziness, Obesity, Adult, Aspirin and Your Heart, Dizziness, [id number], Obesity, Adult, [id number]. Forms are Medication Reconciliation Form, Thank You Letter, Antibiotic Education, Prescription Opioid Use. Follow up: Adilson Wellington; When: 2 - 3 days; Reason: Recheck today's complaints, Continuance of care, Re-evaluation by your physician. Problem is new. Symptoms have improved. troy
--- NOTE | 2020-04-06 03:51 | ER ---
Nurse's Notes [facility] Name: Azalea Nunez Age: 34 yrs Sex: Female : 1985 Arrival Date: 04/06/2020 Time: 02:25 Bed 6 Private MD: Adilson Wellington E Diagnosis: Dizziness and giddiness;Weakness Presentation: 04/06 02:17 Chief complaint: Patient states: that she had eaten approx 0115 then walked over to the smoke tent. After smoking her cig she became dizzy and light headed. Denies any ROCHA, nausea, or vomiting. Pt has been working a lot and only got 4 hrs of sleep today. 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 Coronavirus screen: Patient denies a cough. Patient denies shortness of breath or difficulty breathing. Patient denies measured and/or subjective temperature greater than 100.4F prior to today's visit. Patient denies travel on a cruise ship or to a country the [facility] currently lists as an affected area. Patient denies contact with known and/or suspected case of COVID-19. Proceed with normal triage. Ebola Screen: Patient negative for fever greater than or equal to 101.5 degrees Fahrenheit, and additional compatible Ebola Virus Disease symptoms Patient denies exposure to infectious person. Patient denies travel to an Ebola-affected area in the 21 days before illness onset. Initial Sepsis Screen: Does the patient meet any 2 criteria? No. Patient's initial sepsis screen is negative. Does the patient have a suspected source of infection? No. Patient's initial sepsis screen is negative. Risk Assessment: Do you want to hurt yourself or someone else? Patient reports no desire to harm self or others. Onset of symptoms was April 06, 2020 at 01:15. Care prior to arrival: Glucose check: 198. Transition of care: patient was not received from another setting of care. 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 - Social history:: Smoking status: Patient reports the use of cigarette tobacco products, 3-4 cigarettes daily, Patient/guardian denies using alcohol, street drugs. - Family history:: not pertinent. Screenin:17 Abuse screen: Denies threats or abuse. Nutritional screening: No deficits noted. fc Tuberculosis screening: No symptoms or risk factors identified. Fall Risk None identified. Assessment: 02:40 General: Appears in no apparent distress. comfortable, Behavior is calm, cooperative, jd3 appropriate for age. Pain: Denies pain. Neuro: Level of Consciousness is awake, alert, obeys commands, Oriented to person, place, time, situation, Reports dizziness, that comes and goes. Cardiovascular: Denies chest pain, Capillary refill < 3 seconds Patient's skin is warm and dry. Rhythm is regular. Respiratory: Airway is patent Respiratory effort is even, unlabored, Respiratory pattern is regular, symmetrical, Denies cough, shortness of breath. GI: No signs and/or symptoms were reported involving the gastrointestinal system. Patient currently denies constipation, diarrhea, nausea, vomiting. : No signs and/or symptoms were reported regarding the genitourinary system. EENT: No signs and/or symptoms were reported regarding the EENT system. Derm: Skin is intact, Skin is dry, Skin is normal, Skin temperature is warm. Musculoskeletal: Circulation, motion, and sensation intact. Range of motion: intact in all extremities. 03:38 Reassessment: Patient appears in no apparent distress at this time. Patient and/or jd3 family updated on plan of care and expected duration. Pain level reassessed. Patient is alert, oriented x 3, equal unlabored respirations, skin warm/dry/pink. Patient denies pain at this time. 04:03 Reassessment: Patient appears in no apparent distress at this time. Patient and/or jd3 family updated on plan of care and expected duration. Pain level reassessed. Patient is alert, oriented x 3, equal unlabored respirations, skin warm/dry/pink. Patient denies pain at this time. Patient states feeling better. 04:11 Reassessment: Patient appears in no apparent distress at this time. Patient and/or jd3 family updated on plan of care and expected duration. Pain level reassessed. Patient is alert, oriented x 3, equal unlabored respirations, skin warm/dry/pink. even and steady gait upon discharge, pt reported understanding of discharge instructions. Patient denies pain at this time. Vital Signs: 02:17 BP 142 / 61; Pulse 81; Resp 20; Temp 98.0(O); Pulse Ox 100% on R/A; Weight 142.88 kg fc (R); Height 5 ft. 4 in. (162.56 cm) (R); Pain 0/10; 03:38 BP 138 / 83; Pulse 78; Resp 17 S; Pulse Ox 100% on R/A; jd3 04:02 BP 139 / 59 Supine; Pulse 77; jd3 04:02 BP 140 / 82 Sitting; Pulse 80; jd3 04:02 BP 136 / 78 Standing; Pulse 75; Resp 17 S; Pulse Ox 97% on R/A; jd3 02:17 Body Mass Index 54.07 (142.88 kg, 162.56 cm) ED Course: 02:17 Arm band placed on Patient placed in an exam room, on a stretcher. fc 02:17 Patient has correct armband on for positive identification. Placed in gown. Bed in low fc position. Call light in reach. Side rails up X2. licensed audiologist on. Pulse ox on. NIBP on. 02:17 No provider procedures requiring assistance completed. fc 02:25 Patient arrived in ED. fc 02:25 Adilson Wellington MD is Private Physician. fc 02:28 Sherif Pa MD is Attending Physician. troy 02:29 Triage completed. fc 02:41 Kalpesh Lazaro RN is Primary Nurse. jd3 03:02 XRAY Chest (1 view) In Process Unspecified. EDMS 03:19 Inserted saline lock: 20 gauge in right antecubital area, using aseptic technique. oe Blood collected. 03:50 Adilson Wellington MD is Referral Physician. troy 04:12 IV discontinued, intact, bleeding controlled, No redness/swelling at site. Pressure jd3 dressing applied. Administered Medications: 03:07 Drug: NS 0.9% 1000 ml Route: IV; Rate: 1 bolus; Site: right antecubital; jd3 04:12 Follow up: Response: No adverse reaction; IV Status: Completed infusion; IV Intake: jd3 1000ml Intake: 04:12 IV: 1000ml; Total: 1000ml. jd3 Outcome: 03:50 Discharge ordered by MD. simmons 04:11 Discharged to home ambulatory, with friend. jd3 04:11 Condition: stable 04:11 Discharge instructions given to patient, Instructed on discharge instructions, follow up and referral plans. Demonstrated understanding of instructions, follow-up care. 04:12 Patient left the ED. jd3 Signatures: Dispatcher [employer] EDNH Sherif Pa MD MD cha Chretien, Felicia, RN RN Elkin Smith Jonathon RN RN jjulian
[2020-04-06 04:14] LABS: Urine Blood NEGATIVE (NEG); Urine Glucose NEGATIVE (NEG); Urine Protein NEGATIVE (NEG); Urine Specific Gravity 1.025 (1.005-1.030)
[2020-04-06 04:27] VITALS: BP 136/78; O2SAT 97
--- NOTE | 2020-04-06 06:46 | EKG ---
Test Date: 2020-04-06 Test Time: 02:27:36 Document Imaging Manager: JAMAL MEASUREMENT RESULTS: Intervals: Rate: 78 WY: 138 QRSD: 94 QT: 400 QTc: 456 [place]: P: 32 WY: 138 QRS: 34 T: 65 INTERPRETIVE STATEMENTS: Sinus rhythm with occasional premature ventricular complexes Otherwise normal ECG No previous ECG available for comparison Electronically Signed On 04-06-20 06:45:29 CDT by Marlon Cordero
--- NOTE | 2020-04-06 09:49 | RAD REPORT ---
EXAM DESCRIPTION: RAD - Chest Single View - 04/06/2020 3:02 am CLINICAL HISTORY: COUGH COMPARISON: August 2017 portable TECHNIQUE: AP portable chest image was obtained 04/06/2020 3:02 am . FINDINGS: Lung volumes are extremely low which limits assessment. Limitation is further accentuated due to large body habitus and portable technique. As imaged, lung sewell are clear. No failure or volume overload. Heart and vascular structures within normal limits for the exam limitations. No measurable pleural effusion and no pneumothorax. No acute bony abnormality seen. No acute aortic findings suspected. IMPRESSION: Exam is very limited due to body habitus and very low lung volumes. No acute findings se en.
== END 2020-04-06 04:12 | disposition home or self-care (01) ==
LOC: ER 02:20
DX: R53.1 Weakness (principal); F17.210 Nicotine dependence, cigarettes, uncomplicated; I10 Essential (primary) hypertension
CPT/HCPCS: 93005; 87088; 85025; 87086; 80048; 36415; 83735; 81025; 85379; 80076; 81003; 84484; 83880; 71045; 96360; 99284; J7030

== ENCOUNTER 2020-10-29 08:28 | Emergency (ER) | payer SELFPAY ==
--- NOTE | 2020-10-29 10:53 | RAD REPORT ---
EXAM DESCRIPTION: RAD - Chest Single View - 10/29/2020 10:26 am CLINICAL HISTORY: CHEST PAIN Chest pain. COMPARISON: Chest Single View dated 04/06/2020; Chest Single View dated 09/19/2017 FINDINGS: Portable technique limits examination quality. The lungs are grossly clear. The heart is normal in size. No displaced fractures. IMPRESSION: No acute intrathoracic process suspected.
[2020-10-29 10:54] LABS: Absolute Lymphocytes (CBC) 2.1 K/uL (0.7-4.9); Basophils % 0.6 % (0-1.3); Lymphocytes % 27.2 % (15.3-44.8); MPV 8.8 fL (7.6-11.3); RBC Red Blood Cell Count 4.72 M/uL (3.86-4.86)
[2020-10-29 11:09] LABS: Protime INR 0.98
[2020-10-29 11:14] LABS: ALT/SGPT 32 U/L (12-78); AST/SGOT 13 U/L (15-37); Albumin 3.5 g/dL (3.4-5.0); Alkaline Phosphatase 173 U/L (45-117); BUN Blood Urea Nitrogen 12 mg/dL (7-18); Bicarbonate 29 mmol/L (21-32); Bilirubin Direct < 0.1 mg/dL (0-0.2); Bilirubin Total 0.2 mg/dL (0.2-1.0); Glucose Level 106 mg/dL (74-106); Magnesium 2.1 mg/dL (1.8-2.4); Potassium 3.5 mmol/L (3.5-5.1); Protein, Total 7.5 g/dL (6.4-8.2); Sodium Level 140 mmol/L (136-145); Troponin (Emerg Dept Use Only) < 0.02 ng/mL (0.0-0.045)
[2020-10-29 11:15] LABS: NT PRO-BNP < 5 pg/mL (<125)
--- NOTE | 2020-10-29 11:55 | ER ---
Nurse's Notes [facility] Name: Azalea Nunez Age: 35 yrs Sex: Female : 1985 Arrival Date: 10/29/2020 Time: 08:32 Bed 15 Private MD: Diagnosis: Chest pain, unspecified;Allergic conjunctivitis Presentation: 10/29 08:48 Chief complaint: Patient states: left sharp chest pain, worse with deep breathing, sv "I've been having a lot of eye boogers." x 1 week. Coronavirus screen: Client denies travel out of the [place] in the last 14 days. At this time, the client does not indicate any symptoms associated with coronavirus-19. Ebola Screen: No symptoms or risks identified at this time. Risk Assessment: Do you want to hurt yourself or someone else? Patient reports no desire to harm self or others. Onset of symptoms was October 22, 2020. 08:48 Method Of Arrival: Ambulatory sv 08:48 Acuity: VEL 3 sv 08:50 Initial Sepsis Screen: Does the patient meet any 2 criteria? No. Patient's initial sv sepsis screen is negative. Does the patient have a suspected source of infection? No. Patient's initial sepsis screen is negative. Triage Assessment: 08:48 General: Appears in no apparent distress. comfortable, obese, well groomed, well sv developed, Behavior is calm, cooperative, appropriate for age. Pain: Complains of pain in anterior aspect of left upper chest Pain currently is 5 out of 10 on a pain scale. Neuro: Level of Consciousness is awake, alert, obeys commands, Oriented to person, place, time, situation, Moves all extremities. Full function Gait is steady. Cardiovascular: Patient's skin is warm and dry. Respiratory: Respiratory effort is even, unlabored, Respiratory pattern is regular, symmetrical. 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 - Social history:: Smoking status: Patient denies any tobacco usage or history of. Screenin:45 Abuse screen: Denies threats or abuse. Nutritional screening: No deficits noted. ll1 Tuberculosis screening: No symptoms or risk factors identified. Fall Risk IV access (20 points). Total Roque Fall Scale indicates No Risk (0-24 pts). Assessment: 08:56 Reassessment: Received VO from Dr Josue for an EKG. sv 10:00 Reassessment: No changes from previously documented assessment. Patient and/or family ll1 updated on plan of care and expected duration. Pain level reassessed. Patient is alert, oriented x 3, equal unlabored respirations, skin warm/dry/pink. 11:00 Reassessment: No changes from previously documented assessment. Patient and/or family ll1 updated on plan of care and expected duration. Pain level reassessed. Patient is alert, oriented x 3, equal unlabored respirations, skin warm/dry/pink. 12:00 Reassessment: No changes from previously documented assessment. Patient and/or family ll1 updated on plan of care and expected duration. Pain level reassessed. Patient is alert, oriented x 3, equal unlabored respirations, skin warm/dry/pink. 12:44 Reassessment: No changes from previously documented assessment. Patient and/or family ll1 updated on plan of care and expected duration. Pain level reassessed. Patient is alert, oriented x 3, equal unlabored respirations, skin warm/dry/pink. Pain: Denies pain. Pain does not radiate. Pain began 2-3 days ago. Vital Signs: 08:50 BP 157 / 98; Pulse 87; Resp 16; Temp 98.7; Pulse Ox 100% ; Weight 142.88 kg; Height 5 sv ft. 4 in. (162.56 cm); Pain 4/10; 12:40 BP 130 / 72; Pulse 72; Resp 17; ll1 08:50 Body Mass Index 54.07 (142.88 kg, 162.56 cm) sv ED Course: 08:32 Patient arrived in ED. ds1 08:48 Arm band placed on. sv 08:50 Triage completed. sv 08:56 EKG completed in triage. Results shown to . sv 09:56 Sergio Vallejo, NGOC is Primary Nurse. ll1 09:58 Ryan Israel, JANESSA is PHCP. pm1 09:58 Darrin Josue MD is Attending Physician. pm1 10:15 X-ray completed. Portable x-ray completed in exam room. Patient tolerated procedure sw well. 10:27 XRAY Chest (1 view) In Process Unspecified. EDMS 10:30 Inserted saline lock: 22 gauge in right antecubital area, using aseptic technique. ll1 Blood collected. 12:44 No provider procedures requiring assistance completed. IV discontinued, intact, ll1 bleeding controlled, No redness/swelling at site. Pressure dressing applied. Patient maintains SpO2 saturation greater than 95% on room air. 12:45 Patient has correct armband on for positive identification. Bed in low position. Call ll1 light in reach. Side rails up X 1. quality assurance monitor final on. Pulse ox on. NIBP on. Administered Medications: 12:00 Drug: TORadol 30 mg Route: IVP; Site: right antecubital; 1 12:43 Follow up: Response: No adverse reaction; Pain is decreased; RASS: Alert and Calm (0) ll1 12:02 Drug: SOLU-Medrol 125 mg Route: IVP; Site: right antecubital; 1 12:43 Follow up: Response: No adverse reaction; RASS: Alert and Calm (0) [facility] Outcome: 11:55 Discharge ordered by MD. pm1 12:45 Discharged to home ambulatory. ll1 12:45 Condition: stable 12:45 Discharge instructions given to patient, Instructed on discharge instructions, follow up and referral plans. medication usage, Demonstrated understanding of instructions, follow-up care, medications, Prescriptions given X 2. 12:46 Patient left the ED. ll1 Signatures: Dispatcher [employer] EDMA Magy Huizar RN RN sv Sanford, Demi ds1 Hien Saucedo Patrick, NP EMERGENCY DEPARTMENT DIRECTOR pm1 Sergio Vallejo RN RN ll1 Corrections: (The following items were deleted from the chart) 12:09 12:00 SOLU-Medrol 125 mg IVP in right antecubital ll1 ll1
--- NOTE | 2020-10-29 11:55 | EDPHYS ---
Physician Documentation [facility] Name: Azalea Nunez Age: 35 yrs Sex: Female : 1985 Arrival Date: 10/29/2020 Time: 08:32 Bed 15 Private MD: ED Physician Darrin Josue HPI: 10/29 10:45 This 35 yrs old Female presents to ER via Ambulatory with complaints of Chest pm1 Pain, Drainage From Eye. 10:45 The patient or guardian reports chest pain that is located primarily in the anterior pm1 aspect of left upper chest. The pain does not radiate. Associated signs and symptoms: Pertinent negatives: abdominal pain, cough, diaphoresis, dizziness, headache, nausea, shortness of breath, vomiting. The chest pain is described as sharp. Duration: The patient or guardian reports multiple episodes, that have now resolved. Modifying factors: the symptoms are aggravated by deep breath. Severity of pain: in the emergency department the pain has resolved is a 0 / 10. The patient has been recently seen by a physician: the patient's primary care provider, Dr. Wellington 1 week(s) ago, for apparently unrelated complaints, patient was seen for a routine check. Patient is also complaining of bilateral itchy watery eyes for 1 month. Seen by slip feeder for issue and diagnosed with allergies and was instructed to take allergy medications OTC. 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 - Social history:: Smoking status: Patient denies any tobacco usage or history of. ROS: 10:45 Constitutional: Negative for fever, chills, and weight loss. pm1 10:45 ENT: Negative for injury, pain, and discharge, Neck: Negative for injury, pain, and swelling. 10:45 Respiratory: Negative for shortness of breath, cough, wheezing, and pleuritic chest pain, Abdomen/GI: Negative for abdominal pain, nausea, vomiting, diarrhea, and constipation, Back: Negative for injury and pain, MS/Extremity: Negative for injury and deformity, Skin: Negative for injury, rash, and discoloration, Neuro: Negative for headache, weakness, numbness, tingling, and seizure. 10:45 Eyes: Positive for itching, tearing, of the right eye and left eye, Negative for vision loss, visual disturbance. 10:45 Cardiovascular: Positive for chest pain, Negative for edema, palpitations. Exam: 10:45 Constitutional: This is a well developed, well nourished patient who is awake, alert, pm1 and in no acute distress. Head/Face: Normocephalic, atraumatic. 10:45 Cardiovascular: Regular rate and rhythm with a normal S1 and S2. No gallops, murmurs, or rubs. Normal PMI, no JVD. No pulse deficits. Respiratory: Lungs have equal breath sounds bilaterally, clear to auscultation and percussion. No rales, rhonchi or wheezes noted. No increased work of breathing, no retractions or nasal flaring. 10:45 Back: No spinal tenderness. No costovertebral tenderness. Full range of motion. Skin: Warm, dry with normal turgor. Normal color with no rashes, no lesions, and no evidence of cellulitis. MS/ Extremity: Pulses equal, no cyanosis. Neurovascular intact. Full, normal range of motion. 10:45 Chest/axilla: Inspection: normal, Palpation: crepitus, is not appreciated, tenderness, that is moderate, of the focal point on anterior aspect of left upper chest, that totally reproduces the patient's complaints. 10:45 Abdomen/GI: Exam negative for acute changes, Inspection: obese Palpation: abdomen is soft and non-tender, in all quadrants. 10:45 Neuro: Exam negative for acute changes, Orientation: is normal, Mentation: is normal, Motor: is normal, moves all fours. Vital Signs: 08:50 BP 157 / 98; Pulse 87; Resp 16; Temp 98.7; Pulse Ox 100% ; Weight 142.88 kg; Height 5 sv ft. 4 in. (162.56 cm); Pain 4/10; 12:40 BP 130 / 72; Pulse 72; Resp 17; ll1 08:50 Body Mass Index 54.07 (142.88 kg, 162.56 cm) sv MDM: 09:58 Patient medically screened. pm1 11:36 Data reviewed: vital signs. Data interpreted: Pulse oximetry: on room air is 100 %. pm1 Interpretation: normal. 11:49 Counseling: I had a detailed discussion with the patient and/or guardian regarding: the pm1 historical points, exam findings, and any diagnostic results supporting the discharge/admit diagnosis, lab results, radiology results, the need for outpatient follow up, an allergy/philosophy specialist, a family practitioner, to return to the emergency department if symptoms worsen or persist or if there are any questions or concerns that arise at home. 10/29 10:11 Order name: Basic Metabolic Panel; Complete Time: : pm10/29 10:11 Order name: CBC with Diff; Complete Time: : pm10/29 10:11 Order name: LFT's; Complete Time: : pm10/29 10:11 Order name: Magnesium; Complete Time: : pm10/29 10:11 Order name: NT PRO-BNP; Complete Time: : pm10/29 10:11 Order name: PT-INR; Complete Time: : pm10/29 09:07 Order name: EKG; Complete Time: 09: sv 10/29 09:07 Order name: EKG - Nurse/Tech; Complete Time: 09:08 sv 10/29 10:11 Order name: Troponin (emerg Dept Use Only); Complete Time: : pm10/29 10:11 Order name: XRAY Chest (1 view); Complete Time: 10:57 pm10/29 10:11 Order name: Cardiac monitoring pm1 10/29 10:11 Order name: IV Saline Lock; Complete Time: : pm10/29 10:11 Order name: Labs collected and sent; Complete Time: : pm10/29 10:11 Order name: O2 Per Protocol; Complete Time: : pm10/29 10:11 Order name: O2 Sat Monitoring; Complete Time: : pm Administered Medications: 12:00 Drug: TORadol 30 mg Route: IVP; Site: right antecubital; ll1 12:43 Follow up: Response: No adverse reaction; Pain is decreased; RASS: Alert and Calm (0) ll1 12:02 Drug: SOLU-Medrol 125 mg Route: IVP; Site: right antecubital; ll1 12:43 Follow up: Response: No adverse reaction; RASS: Alert and Calm (0) ll1 Disposition: 14:33 Co-signature as Attending Physician, Darrin Josue MD. rn Disposition: 10/29/20 11:55 Discharged to Home. Impression: Chest pain, unspecified, Allergic conjunctivitis. - Condition is Stable. - Discharge Instructions: Allergic Conjunctivitis, Adult, Nonspecific Chest Pain. - Prescriptions for Hydroxyzine HCl 25 mg Oral Tablet - take 1 tablet by ORAL route every 6 hours As needed; 30 tablet. Medrol (Harley) 4 mg Oral Tablets, Dose Pack - take 1 tablet by ORAL route as directed - follow package instructions; 1 packet. - Medication Reconciliation Form, Thank You Letter, Antibiotic Education, Prescription Opioid Use, Work release form form. - Follow up: Emergency Department; When: As needed; Reason: Worsening of condition. Follow up: Private Physician; When: 2 - 3 days; Reason: Recheck today's complaints, Continuance of care, Re-evaluation by your physician. - Problem is new. - Symptoms have improved. Signatures: Dispatcher [employer] EDMagy Muro, RN RN Darrin Vargas MD MD rn Marinas, Patrick, JANESSA LITIGATION EXAMINER pm1 Sergio Vallejo RN RN ll1 Corrections: (The following items were deleted from the chart) 12:46 11:55 10/29/2020 11:55 Discharged to Home. Impression: Chest pain, unspecified; ll1 Allergic conjunctivitis. Condition is Stable. Forms are Work release form, Medication Reconciliation Form, Thank You Letter, Antibiotic Education, Prescription Opioid Use. Follow up: Emergency Department; When: As needed; Reason: Worsening of condition. Follow up: Private Physician; When: 2 - 3 days; Reason: Recheck today's complaints, Continuance of care, Re-evaluation by your physician. Problem is new. Symptoms have improved. pm1
[2020-10-29] MEDS ORDERED: METHYLPREDNISOLONE 125 MG INJ ONE (12:06)
[2020-10-29] MEDS ORDERED: KETOROLAC 30 MG/ML INJ ONE (12:06)
[2020-10-29 12:56] VITALS: BP 130/72
[2020-10-29 13:05] VITALS: TEMP 97; O2SAT 99
--- OUTSIDE RECORDS SUMMARY | 2020-10-30 19:05 | XMS REPORT | Continuity of Care Document ---
:1985 Author Organization [facility] Address [address] [place] [address] Care Team Providers Name Role Phone Unavailable Unavailable Unavailable Problems Condition Condition Condition Status Onset Resolution Last Treating Co mments Source Name Details Category Date Date Treatment Clinician Date Abnormal Abnormal Diagnosis Active [facility] urine odor urine odor Cass kes - Memoria l [facility] ent Clinics Major Major Problem Active [facility] depressive depressive Cass kes - disorder, disorder, Neeraj candace single single l episode, episode, Outpat i unspecifie unspecifie en t d d Clinics Anxiety Anxiety Problem Active [facility] disorder, disorder, Luke s - unspecifie unspecifie Me moria d d [facility] ent Clinics Essential Essential Problem Active [facility] hypertensi hypertensi Cass kes - on on Memoria [facility] ent Clinics Vaginal Vaginal Diagnosis Active [facility] itching itching [facility] - [facility] ent Clinics BMI BMI Problem Active [facility] 60.0-69.9, 60.0-69.9, Cass kes - adult adult Memoria l [facility] Clinics Hypomenorr Hypomenorr Problem Active [facility]a [facility] - [facility] Clin[facility] Allergies, Adverse Reactions, Alerts This patient has no known allergies or adverse reactions. Medications Ordered Filled Start Stop Current Ordering Indication Dosage Frequency Signature Comments Components Source Medication Medication Date Date Medication? Clinician (SIG) Name Name Bactrim DS Bactrim DS 2017- No Sudha [address] [facility] 04-29 Jimenez [facility] - 00:00: 00:00 [facility] Diflucan Diflucan 2017- No Sudha [address] [facility] 04-29 Jimenez [facility] - 00:00: 00:00 Memoria 00 :00 [facility] ent Clinics Trazodone Trazodone Yes Sudha [address] [facility] HCl HCl Jimenez at bedtime [facility] - as needed [facility] ent Clinics Losartan Losartan Yes Sudha [address] [facility] Potassium Potassium Jimenez [facility] - [facility] ent Clinics Lorazepam Lorazepam Yes Sudha [address] [facility] Jimenez at bedtime [facility] - as needed [facility] ent Clinics Citalopram Citalopram Yes Sudha [address] [facility] Hydrobromid Hydrobromid Jimenez L ukes - e e [facility] ent [facility] Metoprolol Metoprolol Yes Sudha [address] [facility] Tartrate Tartrate Jimenez with food Cass kes - [facility] ent [facility] Procedures This patient has no known procedures. Encounters Start End Encounter Admission Attending Care Care Encounter Source Date/Time Date/Time Type Type Clinicians Facility Department ID 2018-04-29 2018-04-29 Outpatient Jeni Greer [id number] [facility] 10:30:00 10:30:00 [facility] Neeraj candace Clinic l [facility] Results This patient has no known results.
== END 2020-10-29 12:46 | disposition home or self-care (01) ==
LOC: ER 08:28
DX: R07.9 Chest pain, unspecified (principal); H10.10 Acute atopic conjunctivitis, unspecified eye; F41.9 Anxiety disorder, unspecified; F32.9 Major depressive disorder, single episode, unspecified; I10 Essential (primary) hypertension
CPT/HCPCS: 36415; 71045; 80048; 80076; 83735; 83880; 84484; 85025; 85610; 93005; 96374; 96375; 99285; J2930

== ENCOUNTER 2021-06-30 20:36 | Emergency (ER) | payer SELFPAY ==
--- NOTE | 2021-06-30 22:13 | ER ---
Nurse's Notes [facility] Name: Azalea Nunez Age: 36 yrs Sex: Female : 1985 Arrival Date: 06/30/2021 Time: 20:41 Bed 13 Private MD: Diagnosis: Patient's other noncompliance with medication regimen-medication refill requested;Essential (primary) hypertension;Major depressive disorder, recurrent, mild Presentation: 06/30 21:22 Chief complaint: Patient states: " I think I have really bad allergies, my eyes are vg1 constantly watery, itchy, burning and in the mornings that are closed shut with eye boogers." Pt also states runny nose. Coronavirus screen: Vaccine status: Patient reports being unvaccinated. Ebola Screen: Patient negative for fever greater than or equal to 101.5 degrees Fahrenheit, and additional compatible Ebola Virus Disease symptoms. Initial Sepsis Screen: Does the patient meet any 2 criteria? No. Patient's initial sepsis screen is negative. Does the patient have a suspected source of infection? No. Patient's initial sepsis screen is negative. Risk Assessment: Do you want to hurt yourself or someone else? Patient reports no desire to harm self or others. Onset of symptoms was June 30, 2021. 21:22 Method Of Arrival: Ambulatory vg1 21:22 Acuity: VEL 3 vg1 Triage Assessment: 21:27 General: Appears in no apparent distress. comfortable, Behavior is calm, cooperative. vg1 Pain: Denies pain. 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 - Social history:: Smoking status: Patient reports the use of cigarette tobacco products, denies chronic smoking, but will smoke occasionally. Screenin:55 Abuse screen: Denies threats or abuse. Nutritional screening: No deficits noted. cc4 Tuberculosis screening: No symptoms or risk factors identified. Fall Risk None identified. Assessment: 21:55 General: Appears in no apparent distress. Behavior is calm, cooperative. EENT: Reports cc4 nasal congestion nasal discharge Tearing of eyes; states, "My allergies have been bad x 1 week"; eyes clear at present time; no nasal discharge noted; no cough noted; states, "I can't see my doctor until Thursday", "I need all of my medicines refilled; list of meds given to Dr. Pa.. 21:55 Respiratory: No deficits noted. Airway is patent. cc4 23:06 Reassessment: Patient appears in no apparent distress at this time. No changes from cc4 previously documented assessment. Vital Signs: 21:22 BP 180 / 103; Pulse 84; Resp 18; Temp 97.7; Pulse Ox 98% ; Weight 142.88 kg; Height 5 vg1 ft. 4 in. (162.56 cm); Pain 0/10; 21:55 BP 166 / 100; Pulse 75; Resp 20; Temp 98; Pulse Ox 98% on R/A; cc4 23:06 BP 146 / 85; Pulse 92; Resp 20; Temp 98.1; Pulse Ox 98% on R/A; cc4 21:22 Body Mass Index 54.07 (142.88 kg, 162.56 cm) vg1 ED Course: 20:41 Patient arrived in ED. cf2 21:27 Triage completed. vg1 21:27 Arm band placed on. vg1 21:34 Sherif Pa MD is Attending Physician. [facility] 21:55 Patient has correct armband on for positive identification. Bed in low position. Call cc4 light in reach. Side rails up X 1. 21:55 No provider procedures requiring assistance completed. cc4 21:56 Soraida Neumann, NGOC is Primary Nurse. cc4 23:10 Patient did not have IV access during this emergency room visit. cc4 Administered Medications: 22:47 Drug: Norvasc (amlodipine) 10 mg Route: PO; cc4 23:10 Follow up: Response: No adverse reaction cc4 23:10 Follow up: Response: Blood pressure is lowered cc4 22:48 Drug: Losartan 100 mg Route: PO; cc4 23:10 Follow up: Response: No adverse reaction; Blood pressure is lowered cc4 23:06 Drug: CeleXA 20 mg Route: PO; cc4 23:10 Follow up: Response: No adverse reaction cc4 23:06 Drug: Cymbalta (DULoxetine) 60 mg Route: PO; cc4 23:10 Follow up: Response: No adverse reaction cc4 23:06 Drug: Levothroid 75 mcg Route: PO; cc4 23:10 Follow up: Response: No adverse reaction cc4 Outcome: 21:55 Condition: stable cc4 22:12 Discharge ordered by . troy 23:10 Discharged to home ambulatory. cc4 23:10 Condition: stable 23:10 Discharge instructions given to patient, Instructed on discharge instructions, follow up and referral plans. medication usage, Demonstrated understanding of instructions, follow-up care, medications, Prescriptions given X x 5 Signatures: Sherif Pa MD MD cha Munoz, Edgar, RN RN Sabas Emerson cf2 Shannon Fernández RN RN vg1 Soraida Neumann RN RN cc4 Corrections: (The following items were deleted from the chart) 07/01 01:46 00:17 Patient left the ED. chiki cc4
--- NOTE | 2021-06-30 22:13 | EDPHYS ---
Physician Documentation [facility] Name: Azalea Nunez Age: 36 yrs Sex: Female : 1985 Arrival Date: 06/30/2021 Time: 20:41 Bed 13 Private MD: ARPAN Physician Sherif Pa HPI: 06/30 22:09 This 36 yrs old Female presents to ER via Ambulatory with complaints of troy PERSCRIBTION REFILL, Eye Problem. 22:09 The patient is experiencing redness. Onset: The symptoms/episode began/occurred 2 troy day(s) ago. Duration: the symptoms are continuous. 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 - Social history:: Smoking status: Patient reports the use of cigarette tobacco products, denies chronic smoking, but will smoke occasionally. ROS: 22:09 Constitutional: Negative for fever, chills, and weight loss, ENT: Negative for injury, troy pain, and discharge, Neck: Negative for injury, pain, and swelling, Cardiovascular: Negative for chest pain, palpitations, and edema, Respiratory: Negative for shortness of breath, cough, wheezing, and pleuritic chest pain, Abdomen/GI: Negative for abdominal pain, nausea, vomiting, diarrhea, and constipation, Back: Negative for injury and pain, : Negative for injury, bleeding, discharge, and swelling, MS/Extremity: Negative for injury and deformity, Skin: Negative for injury, rash, and discoloration, Neuro: Negative for headache, weakness, numbness, tingling, and seizure, Psych: Negative for depression, anxiety, suicide ideation, homicidal ideation, and hallucinations, Allergy/Immunology: Negative for hives, rash, and allergies, Endocrine: Negative for neck swelling, polydipsia, polyuria, polyphagia, and marked weight changes, Hematologic/Lymphatic: Negative for swollen nodes, abnormal bleeding, and unusual bruising. 22:09 Eyes: Positive for redness, of the outer aspect of conjuctiva of right eye, inner aspect of conjuctiva of right eye, outer aspect of conjuctiva of left eye and inner aspect of conjunctiva of left eye. Exam: 22:09 Constitutional: This is a well developed, well nourished patient who is awake, alert, troy and in no acute distress. Head/Face: Normocephalic, atraumatic. ENT: Nares patent. No nasal discharge, no septal abnormalities noted. Tympanic membranes are normal and external auditory canals are clear. Oropharynx with no redness, swelling, or masses, exudates, or evidence of obstruction, uvula midline. Mucous membranes moist. Neck: Trachea midline, no thyromegaly or masses palpated, and no cervical lymphadenopathy. Supple, full range of motion without nuchal rigidity, or vertebral point tenderness. No Meningismus. Chest/axilla: Normal chest wall appearance and motion. Nontender with no deformity. No lesions are appreciated. Cardiovascular: Regular rate and rhythm with a normal S1 and S2. No gallops, murmurs, or rubs. Normal PMI, no JVD. No pulse deficits. Respiratory: Lungs have equal breath sounds bilaterally, clear to auscultation and percussion. No rales, rhonchi or wheezes noted. No increased work of breathing, no retractions or nasal flaring. Abdomen/GI: Soft, non-tender, with normal bowel sounds. No distension or tympany. No guarding or rebound. No evidence of tenderness throughout. Back: No spinal tenderness. No costovertebral tenderness. Full range of motion. Skin: Warm, dry with normal turgor. Normal color with no rashes, no lesions, and no evidence of cellulitis. MS/ Extremity: Pulses equal, no cyanosis. Neurovascular intact. Full, normal range of motion. Neuro: Awake and alert, GCS 15, oriented to person, place, time, and situation. Cranial nerves II-XII grossly intact. Motor strength 5/5 in all extremities. Sensory grossly intact. Cerebellar exam normal. Normal gait. Psych: Awake, alert, with orientation to person, place and time. Behavior, mood, and affect are within normal limits. 22:09 Eyes: Conjunctiva: injected, bilaterally. Vital Signs: 21:22 BP 180 / 103; Pulse 84; Resp 18; Temp 97.7; Pulse Ox 98% ; Weight 142.88 kg; Height 5 vg1 ft. 4 in. (162.56 cm); Pain 0/10; 21:55 BP 166 / 100; Pulse 75; Resp 20; Temp 98; Pulse Ox 98% on R/A; cc4 23:06 BP 146 / 85; Pulse 92; Resp 20; Temp 98.1; Pulse Ox 98% on R/A; cc4 21:22 Body Mass Index 54.07 (142.88 kg, 162.56 cm) vg1 MDM: 21:34 Patient medically screened. troy 22:09 Differential diagnosis: allergic conjunctivitis. Data reviewed: vital signs, nurses troy notes. Administered Medications: 22:47 Drug: Norvasc (amlodipine) 10 mg Route: PO; cc4 23:10 Follow up: Response: No adverse reaction cc4 23:10 Follow up: Response: Blood pressure is lowered cc4 22:48 Drug: Losartan 100 mg Route: PO; cc4 23:10 Follow up: Response: No adverse reaction; Blood pressure is lowered cc4 23:06 Drug: CeleXA 20 mg Route: PO; cc4 23:10 Follow up: Response: No adverse reaction cc4 23:06 Drug: Cymbalta (DULoxetine) 60 mg Route: PO; cc4 23:10 Follow up: Response: No adverse reaction cc4 23:06 Drug: Levothroid 75 mcg Route: PO; cc4 23:10 Follow up: Response: No adverse reaction cc4 Disposition Summary: 06/30/21 22:12 Discharge Ordered Location: Home troy Problem: new troy Symptoms: have improved troy Condition: Stable troy Diagnosis - Patient's other noncompliance with medication regimen - medication refill requested troy - Essential (primary) hypertension troy - Major depressive disorder, recurrent, mild troy Followup: troy - With: Private Physician - When: 2 - 3 days - Reason: Recheck today's complaints, Continuance of care, Re-evaluation by your physician Discharge Instructions: - Discharge Summary Sheet troy - Hypertension, Adult troy - Hypertension, Adult, [id number] troy - How to Take Your Blood Pressure, [id number] troy - Aspirin and Your Heart troy - Managing Your Hypertension troy - Major Depressive Disorder, Adult, [id number] troy - Major Depressive Disorder, Adult troy - Managing Depression, Adult troy - How to Take Your Blood Pressure troy - Preventing Hypertension troy Forms: - Medication Reconciliation Form troy - Thank You Letter troy - Antibiotic Education troy - Prescription Opioid Use troy - Work release form cc4 Prescriptions: - Cymbalta 60 mg Oral capsule,delayed release(DR/EC) - take 1 capsule by ORAL route once daily; 20 capsule; Refills: 0, Product troy Selection Permitted - losartan 100 mg Oral tablet - take 1 tablet by ORAL route once daily; 20 tablet; Refills: 0, Product troy Selection Permitted - Celexa 20 mg Oral Tablet - take 1 tablet by ORAL route once daily; 20 tablet; Refills: 0, Product troy Selection Permitted - Norvasc 10 mg Oral Tablet - take 1 tablet by ORAL route once daily; 30 tablet; Refills: 0, Product troy Selection Permitted - Levothyroxine 75 mcg Oral Tablet - take 1 tablet by ORAL route once daily take 30 minutes before breakfast; 20 troy tablet; Refills: 0, Product Selection Permitted Signatures: Sherif Pa MD MD cha Garcia, Victoria, RN RN vg1 Soraida Neumann, RN RN cc4
[2021-06-30] MEDS ORDERED: AMLODIPINE 10 MG TAB ONE (23:11)
[2021-06-30] MEDS ORDERED: LOSARTAN POTASSIUM 50 MG TABLET ONE (23:11)
[2021-06-30] MEDS ORDERED: DULOXETINE 30 MG CAP PO ONE (23:24)
[2021-06-30] MEDS ORDERED: CITALOPRAM 10 MG TABLET ONE (23:24)
[2021-06-30] MEDS ORDERED: LEVOTHYROXINE SOD 0.075 MG TAB ONE (23:25)
[2021-07-01 00:22] VITALS: O2SAT 98
[2021-07-01 00:23] VITALS: BP 166/100; TEMP 98
== END 2021-07-01 00:17 | disposition home or self-care (01) ==
LOC: ER 20:36
DX: F33.9 Major depressive disorder, recurrent, unspecified (principal); I10 Essential (primary) hypertension; Z76.0 Encounter for issue of repeat prescription; Z91.14 Patient's other noncompliance with medication regimen; E03.9 Hypothyroidism, unspecified
CPT/HCPCS: 99283

== ENCOUNTER 2021-08-19 05:45 | Emergency (ER) | payer BC ==
--- OUTSIDE RECORDS SUMMARY | 2021-08-19 05:48 | XMS REPORT | Continuity of Care Document ---
:1985 Author Organization [facility] t Address [address] [place] [address] Care Team Providers Name Role Phone Unavailable Unavailable Unavailable Problems Condition Condition Condition Status Onset Resolution Last Treating Co mments Source Name Details Category Date Date Treatment Clinician Date Abnormal Abnormal Diagnosis Active [facility] urine odor urine odor Cass kes - [facility] Major Major Problem Active [facility] depressive depressive Cass kes - disorder, disorder, Neeraj candace single single l episode, episode, Outpat i unspecifie unspecifie en t d d Clinics Anxiety Anxiety Problem Active [facility] disorder, disorder, Luke s - unspecifie unspecifie Me moria d d [facility] Essential Essential Problem Active [facility] hypertensi hypertensi Cass kes - on on Memoria [facility] Vaginal Vaginal Diagnosis [facility] itching itching [facility] - [facility] BMI BMI Problem Active [facility] 60.0-69.9, 60.0-69.9, Cass kes - adult adult Memoria [facility] Hypomenorr Hypomenorr Problem Active [facility] - [facility] Allergies, Adverse Reactions, Alerts This patient has no known allergies or adverse reactions. Medications Ordered Filled Start Stop Current Ordering Indication Dosage Frequency Signature Comments Components Source Medication Medication Date Date Medication? Clinician (SIG) Name Name Bactrim DS Bactrim DS 2017- No Sudha [address] [facility] 04-29 [facility] Diflucan Diflucan 2017- No Sudha [address] [facility] 04-29 Jimenez [facility] - 00:00: 00:00 [facility] 00 :00 l Outpati ent Clinics Trazodone Trazodone Yes Sudha [address] [facility] HCl HCl Jimenez at bedtime [facility] - as needed [facility]oria l [facility] Clinics Losartan Losartan Yes Sudha [address] [facility] Potassium Potassium [facility] Lorazepam Lorazepam Yes Sudha [address] [facility] Jimenez at bedtime [facility] - as needed Memoria l [facility]ics Citalopram Citalopram Yes Sudha [address] [facility] Hydrobromid Hydrobromid Jim[facility] Metoprolol Metoprolol Yes Sudha [address] [facility] Tartrate Tartrate Jimenez with food Cass kes - [facility] Procedures This patient has no known procedures. Encounters Start End Encounter Admission Attending Care Care Encounter Source Date/Time Date/Time Type Type Clinicians Facility Department ID 2018-04-29 2018-04-29 Outpatient Jeni Greer [id number] [facility] 10:30:00 10:30:00 [facility]eraj [facility] Results This patient has no known results.
[2021-08-19] MEDS ORDERED: ONDANSETRON 4 MG/2 ML VIAL ONE (07:10)
[2021-08-19] MEDS ORDERED: MORPHINE 4 MG/ML SYR ONE (07:10)
[2021-08-19 07:21] LABS: Basophils % 1.2 % (0-1.3); Hematocrit 38.7 % (36.0-45.0); Lymphocytes % 23.1 % (15.3-44.8); MPV 8.6 fL (7.6-11.3); RBC Red Blood Cell Count 4.52 M/uL (3.86-4.86)
[2021-08-19 07:23] LABS: Protime INR 0.95
[2021-08-19 07:44] LABS: ALT/SGPT 44 U/L (12-78); AST/SGOT 21 U/L (15-37); Albumin 3.3 g/dL (3.4-5.0); Alkaline Phosphatase 156 U/L (45-117); BUN Blood Urea Nitrogen 12 mg/dL (7-18); Bicarbonate 29 mmol/L (21-32); Bilirubin Direct 0.1 mg/dL (0-0.2); Bilirubin Total 0.3 mg/dL (0.2-1.0); Glucose Level 132 mg/dL (74-106); Magnesium 2.1 mg/dL (1.8-2.4); NT PRO-BNP 19 pg/mL (<125); Potassium 3.5 mmol/L (3.5-5.1); Protein, Total 7.5 g/dL (6.4-8.2); Sodium Level 140 mmol/L (136-145); Troponin (Emerg Dept Use Only) < 0.02 ng/mL (0.0-0.045)
[2021-08-19] MEDS ORDERED: KETOROLAC 30 MG/ML INJ ONE (09:39)
--- NOTE | 2021-08-19 10:26 | RAD REPORT ---
EXAM DESCRIPTION: RAD - Chest Single View - 08/19/2021 7:00 am CLINICAL HISTORY: CHEST PAIN COMPARISON: October 29 TECHNIQUE: AP portable chest image was obtained 08/19/2021 7:00 am . FINDINGS: Lung volumes are low. No peripheral mass or consolidation. Low lung volumes and body habit us affects accentuate the mediastinal and hilar regions. Heart and vasculature are normal. No measura ble pleural effusion and no pneumothorax. No acute bony abnormality seen. No acute aortic findings matt spected. IMPRESSION: Limited portable study without acute cardiopulmonary finding.
--- NOTE | 2021-08-19 12:25 | EDPHYS ---
Physician Documentation [facility] Name: Azalea Nunez Age: 36 yrs Sex: Female : 1985 Arrival Date: 08/19/2021 Time: 05:51 Bed 14 Private MD: ED Physician Kory Krishnamurthy HPI: 08/19 06:51 This 36 yrs old Female presents to ER via Unassigned with complaints of Chest pm1 Pain. 06:51 The patient or guardian reports chest pain that is located primarily in the anterior pm1 aspect of left upper chest. The pain does not radiate. Associated signs and symptoms: The patient has no apparent associated signs or symptoms, Pertinent negatives: abdominal pain, cough, diaphoresis, dizziness, headache, nausea, near syncope, palpitations, shortness of breath, vomiting. The chest pain is described as sharp. Duration: The patient or guardian reports a single episode. Modifying factors: the symptoms are aggravated by deep breath, palpation of area. Severity of pain: in the emergency department the pain is unchanged. The patient has not experienced similar symptoms in the past. The patient has not recently seen a physician. 06:51 Onset 1 AM today. 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 - Social history:: Smoking status: Patient reports the use of cigarette tobacco products, denies chronic smoking, but will smoke occasionally. ROS: 06:51 Constitutional: Negative for fever, chills, and weight loss. pm1 06:51 Respiratory: Negative for shortness of breath, cough, wheezing, and pleuritic chest pain, Abdomen/GI: Negative for abdominal pain, nausea, vomiting, diarrhea, and constipation, Back: Negative for injury and pain, MS/Extremity: Negative for injury and deformity, Skin: Negative for injury, rash, and discoloration, Neuro: Negative for headache, weakness, numbness, tingling, and seizure. 06:51 Cardiovascular: Positive for chest pain, Negative for edema, palpitations. 06:51 All other systems are negative. Exam: 06:51 Constitutional: This is a well developed, well nourished patient who is awake, alert, pm1 and in no acute distress. Head/Face: Normocephalic, atraumatic. 06:51 Back: No spinal tenderness. No costovertebral tenderness. Full range of motion. Skin: Warm, dry with normal turgor. Normal color with no rashes, no lesions, and no evidence of cellulitis. MS/ Extremity: Pulses equal, no cyanosis. Neurovascular intact. Full, normal range of motion. 06:51 Eyes: Exam is negative for acute changes, Periorbital structures: appear normal, Extraocular movements: no acute changes, Conjunctiva: no acute changes, no injection. 06:51 ENT: Exam is negative for acute changes, Mouth: no acute changes, Lips: normal, moist, Oral mucosa: normal, pink and intact, moist. 06:51 Cardiovascular: Exam negative for acute changes, Rate: normal, Rhythm: regular, Pulses: no pulse deficits are appreciated, Heart sounds: normal, Edema: is not appreciated. 06:51 Respiratory: Exam negative for acute changes, respiratory distress, shortness of breath, Breath sounds: are clear throughout. 06:51 Neuro: Exam negative for acute changes, Orientation: is normal, Mentation: is normal, Motor: is normal, moves all fours. Vital Signs: 06:00 BP 162 / 97; Pulse 76; Resp 18; Pulse Ox 100% ; bb 07:14 BP 130 / 86; Pulse 73; Resp 14; Pulse Ox 99% ; kd3 07:56 BP 130 / 86; Pulse 74; Resp 20 S; Pulse Ox 96% on R/A; bb 08:57 BP 123 / 72; Pulse 66; Resp 18 S; Pulse Ox 96% on R/A; as6 09:50 BP 138 / 92; Pulse 70; Resp 16 S; Pulse Ox 96% on R/A; as6 10:58 BP 127 / 73; Pulse 68; Resp 18 S; Pulse Ox 95% on R/A; as6 13:11 BP 142 / 86; Pulse 73; Resp 20 S; Pulse Ox 97% on R/A; as6 MDM: 06:18 Patient medically screened. pm1 12:23 Data reviewed: vital signs. Data interpreted: Pulse oximetry: on room air is 95 %. pm1 Interpretation: normal. Counseling: I had a detailed discussion with the patient and/or guardian regarding: the historical points, exam findings, and any diagnostic results supporting the discharge/admit diagnosis, lab results, radiology results, the need for outpatient follow up, a family practitioner, to return to the emergency department if symptoms worsen or persist or if there are any questions or concerns that arise at home. 08/19 06:38 Order name: Basic Metabolic Panel; Complete Time: 08:12 pm1 08/19 06:38 Order name: CBC with Diff; Complete Time: 08:12 pm1 08/19 06:38 Order name: LFT's; Complete Time: 08:12 pm1 08/19 06:38 Order name: Magnesium; Complete Time: 08:12 pm1 08/19 06:38 Order name: NT PRO-BNP; Complete Time: 08:12 pm1 08/19 06:38 Order name: PT-INR; Complete Time: 08:12 pm1 08/19 06:38 Order name: Troponin (emerg Dept Use Only); Complete Time: 08:12 pm1 08/19 06:38 Order name: XRAY Chest (1 view); Complete Time: 11:05 pm1 08/19 06:38 Order name: EKG; Complete Time: 06:39 pm1 08/19 06:38 Order name: Cardiac monitoring; Complete Time: 07:07 pm1 08/19 11:15 Order name: Troponin (emerg Dept Use Only); Complete Time: 12:23 pm1 08/19 06:38 Order name: EKG - Nurse/Tech; Complete Time: 06:51 pm1 08/19 06:38 Order name: IV Saline Lock; Complete Time: 07:07 pm1 08/19 06:38 Order name: Labs collected and sent; Complete Time: 07:08 pm1 08/19 06:38 Order name: O2 Per Protocol; Complete Time: 07:08 pm1 08/19 06:38 Order name: O2 Sat Monitoring; Complete Time: 07:08 pm1 Administered Medications: 07:27 Drug: Zofran (Ondansetron) 4 mg Route: IVP; Site: left antecubital; bb 07:56 Follow up: Response: No adverse reaction bb 07:29 Drug: morphine 4 mg {Note: rass 0.} Route: IVP; Site: left antecubital; bb 07:55 Follow up: Response: No adverse reaction; Pain is decreased; RASS: Alert and Calm (0) bb 09:42 Drug: Ketorolac 30 mg Route: IVP; Site: left antecubital; as6 10:30 Follow up: Response: No adverse reaction as6 Disposition Summary: 08/19/21 12:24 Discharge Ordered Location: Home pm1 Problem: new pm1 Symptoms: have improved pm1 Condition: Stable pm1 Diagnosis - Chest pain, unspecified pm1 Followup: pm1 - With: Private Physician - When: 2 - 3 days - Reason: Recheck today's complaints, Continuance of care, Re-evaluation by your physician Followup: pm1 - With: Emergency Department - When: As needed - Reason: Worsening of condition Discharge Instructions: - Discharge Summary Sheet pm1 - Nonspecific Chest Pain, Adult pm1 Forms: - Medication Reconciliation Form pm1 - Work release form pm1 - Thank You Letter pm1 - Antibiotic Education pm1 - Prescription Opioid Use pm1 Prescriptions: - Cyclobenzaprine 10 mg Oral Tablet - take 1 tablet by ORAL route every 8 hours As needed; 30 tablet; Refills: 0, pm1 Product Selection Permitted - Diclofenac Sodium 75 mg Oral tablet,delayed release (DR/EC) - take 1 tablet by ORAL route 2 times per day As needed; 30 tablet; Refills: 0, pm1 Product Selection Permitted Signatures: Dispatcher [employer] EDConstance Wright RN RN bb Ryan Israel, ALMOND PASTE MOLDER ALMOND PASTE MOLDER pm1 Buzz Underwood RN RN as6 Leila Gregorio RN RN kd3
--- NOTE | 2021-08-19 12:25 | ER ---
Nurse's Notes [facility] Name: Azalea Nunez Age: 36 yrs Sex: Female : 1985 Arrival Date: 08/19/2021 Time: 05:51 Bed 14 Private MD: Diagnosis: Chest pain, unspecified Presentation: 08/19 06:00 Chief complaint: EMS states: pt was at work started having chest pain. Coronavirus bb screen: At this time, the client does not indicate any symptoms associated with coronavirus-19. Ebola Screen: No symptoms or risks identified at this time. Initial Sepsis Screen: Does the patient meet any 2 criteria? No. Patient's initial sepsis screen is negative. Does the patient have a suspected source of infection? No. Patient's initial sepsis screen is negative. Risk Assessment: Do you want to hurt yourself or someone else? Patient reports no desire to harm self or others. Onset of symptoms was August 19, 2021. 06:00 Method Of Arrival: EMS: BASF bb 06:00 Acuity: VEL 3 bb Triage Assessment: 07:12 General: Appears in no apparent distress. Behavior is calm, cooperative, appropriate kd3 for age. Pain: Complains of pain in chest. 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 - Social history:: Smoking status: Patient reports the use of cigarette tobacco products, denies chronic smoking, but will smoke occasionally. Screenin:00 Abuse screen: Denies threats or abuse. Denies injuries from another. Nutritional kd3 screening: No deficits noted. Tuberculosis screening: No symptoms or risk factors identified. Fall Risk Assessment: 06:00 Pain: Pain does not radiate. Pain began This morning before work. kd3 06:00 Cardiovascular: Reports chest pain, Denies diaphoresis, fatigue, lightheadedness, kd3 shortness of breath, syncope, vomiting. Respiratory: No deficits noted. Airway is patent. 07:15 General: Appears in no apparent distress. comfortable, Behavior is calm, cooperative, ss Denies fever, feeling ill, fatigue, chills. Pain: Complains of pain in anterior aspect of left upper chest and mid-sternal area Pain currently is 4 out of 10 on a pain scale. Pain began 0400 this aM Is continuous. Neuro: Level of Consciousness is awake, alert, obeys commands, Oriented to person, place, time, situation. Respiratory: Airway is patent is compromised Trachea midline Respiratory effort is even, unlabored, Respiratory pattern is regular, symmetrical. Respiratory: Denies cough, shortness of breath. GI: Abdomen is non-distended. : No signs and/or symptoms were reported regarding the genitourinary system. EENT: Nares are clear Oral mucosa is moist. Throat is clear. Derm: Skin is intact, is healthy with good turgor, Skin is dry, Skin is pink, warm \T\ dry. normal. Musculoskeletal: Circulation, motion, and sensation intact. Range of motion: intact in all extremities, Swelling absent. 07:56 Reassessment: Patient is alert, oriented x 3, equal unlabored respirations, skin bb warm/dry/pink. pt states she is feeling better after med administration pain now is 3/10. 09:30 Reassessment: Patient and/or family updated on plan of care and expected duration. Pain as6 level reassessed. Patient is alert, oriented x 3, equal unlabored respirations, skin warm/dry/pink. pt c/o pain, provider notified. 10:58 Reassessment: Patient and/or family updated on plan of care and expected duration. Pain as6 level reassessed. Patient is alert, oriented x 3, equal unlabored respirations, skin warm/dry/pink. Vital Signs: 06:00 BP 162 / 97; Pulse 76; Resp 18; Pulse Ox 100% ; bb 07:14 BP 130 / 86; Pulse 73; Resp 14; Pulse Ox 99% ; kd3 07:56 BP 130 / 86; Pulse 74; Resp 20 S; Pulse Ox 96% on R/A; bb 08:57 BP 123 / 72; Pulse 66; Resp 18 S; Pulse Ox 96% on R/A; as6 09:50 BP 138 / 92; Pulse 70; Resp 16 S; Pulse Ox 96% on R/A; as6 10:58 BP 127 / 73; Pulse 68; Resp 18 S; Pulse Ox 95% on R/A; as6 13:11 BP 142 / 86; Pulse 73; Resp 20 S; Pulse Ox 97% on R/A; as6 ED Course: 05:51 Patient arrived in ED. bb 06:00 Arm band placed on Patient placed in an exam room, on a stretcher, on satellite project site monitor, bb on pulse oximetry. 06:00 Patient has correct armband on for positive identification. Placed in gown. Bed in low kd3 position. Call light in reach. Side rails up X2. court monitor on. Pulse ox on. NIBP on. 06:00 Patient maintains SpO2 saturation greater than 95% on room air. kd3 06:05 Leila Gregorio, NGOC is Primary Nurse. kd3 06:08 Ryan Israel NP is PHCP. pm1 06:08 Kory Krishnamurthy MD is Attending Physician. pm1 07:00 Triage completed. bb 07:00 XRAY Chest (1 view) In Process Unspecified. EDMS 07:15 Inserted saline lock: 22 gauge in left antecubital area, using aseptic technique. Blood ds4 collected. 13:18 No provider procedures requiring assistance completed. IV discontinued, intact, as6 bleeding controlled, No redness/swelling at site. Pressure dressing applied. Administered Medications: 07:27 Drug: Zofran (Ondansetron) 4 mg Route: IVP; Site: left antecubital; bb 07:56 Follow up: Response: No adverse reaction bb 07:29 Drug: morphine 4 mg {Note: rass 0.} Route: IVP; Site: left antecubital; bb 07:55 Follow up: Response: No adverse reaction; Pain is decreased; RASS: Alert and Calm (0) bb 09:42 Drug: Ketorolac 30 mg Route: IVP; Site: left antecubital; as6 10:30 Follow up: Response: No adverse reaction as6 Outcome: 12:24 Discharge ordered by . pm1 13:18 Discharged to home ambulatory. as6 13:18 Condition: stable 13:18 Discharge instructions given to patient, Instructed on discharge instructions, follow up and referral plans. medication usage, Demonstrated understanding of instructions, follow-up care, medications, Prescriptions given X 2. 13:19 Patient left the ED. as6 Signatures: Dispatcher [employer] EDConstance Wright RN RN bb Janett Goetz RN RN ss Swanson, Donovan ds4 Ryan Israel, AREA ATTENDANT AREA ATTENDANT pm1 Buzz Underwood RN RN as6 Leila Gregorio RN RN kd3 Corrections: (The following items were deleted from the chart) 07:18 06:00 Inserted saline lock: 16 gauge in left forearm, using aseptic technique. kd3 kd3
[2021-08-19 13:52] VITALS: BP 142/86; O2SAT 97
== END 2021-08-19 13:19 | disposition home or self-care (01) ==
LOC: ER 05:45
DX: R07.9 Chest pain, unspecified (principal); E03.9 Hypothyroidism, unspecified; I10 Essential (primary) hypertension; F41.8 Other specified anxiety disorders
CPT/HCPCS: 93005; 85025; 80048; 36415; 83735; 85610; 80076; 84484 ×2; 83880; 71045; 96375; 96374; 99285; J2405

== ENCOUNTER 2022-11-11 13:36 | Emergency (ER) | payer OTHER ==
--- OUTSIDE RECORDS SUMMARY | 2022-11-11 13:40 | XMS REPORT | Continuity of Care Document ---
:1985 Author Organization [facility] t Address [address] [place] [address] Care Team Providers Name Role Phone Unavailable Unavailable Unavailable Problems Condition Condition Condition Status Onset Resolution Last Treating Co mments Source Name Details Category Date Date Treatment Clinician Date Abnormal Abnormal Diagnosis Active Com mon urine odor urine odor Sp chema - [facility] Major Major Problem Active Common depressive depressive Sp chema disorder, disorder, - [facility] single [facility] episode, [facility], [facility] Anxiety Anxiety Problem Active Common disorder, disorder, Spir it unspecifie unspecifie - [facility] d d [facility] Essential Essential Problem Active Com mon hypertensi hypertensi Sp chema on on [facility] Vaginal Vaginal Diagnosis Active Commo n itching itching [facility] BMI BMI Problem Active Common 60.0-69.9, 60.0-69.9, Sp chema adult adult [facility] Hypomenorr Hypomenorr Problem Active C ommon hea hea [facility] Allergies, Adverse Reactions, Alerts This patient has no known allergies or adverse reactions. Medications Ordered Filled Start Stop Current Ordering Indication Dosage Frequency Signature Comments Components Source Medication Medication Date Date Medication? Clinician (SIG) Name Name Bactrim DS Bactrim DS 2018- No Sudha 1 tablet Common 04-29 [facility] 00:00: 00:00 - [facility] 00 :00 [facility] Diflucan Diflucan 2018- No Sudha 1 tablet Common 04-29 [facility] 00:00: 00:00 - [facility] 00 :00 [facility] Trazodone Trazodone Yes Sudha 1 tablet Common HCl HCl Jimenez at bedtime Spirit as needed - [facility] Losartan Losartan Yes Sudha 1 tablet Common Potassium Potassium [facility] Spiri t [facility] Lorazepam Lorazepam Yes Sudha 1 tablet Common Jimenez at bedtime Spirit as needed [facility] Citalopram Citalopram Yes Sudha 1 tablet Common Hydrobromid Hydrobromid Jimenez S pirit e e - [facility] Metoprolol Metoprolol Yes Sudha 1 tablet Common Tartrate Tartrate Jimenez with food Sp chema - [facility] Procedures This patient has no known procedures. Encounters Start End Encounter Admission Attending Care Care Encounter Source Date/Time Date/Time Type Type Clinicians Facility Department ID 2018-04-29 2018-04-29 Outpatient Jeni Greer [id number] Common 10:30:00 10:30:00 [facility] Results This patient has no known results.
[2022-11-11] MEDS ORDERED: dexAMETHasone 10 MG/ML VIAL ONE (14:58)
[2022-11-11] MEDS ORDERED: LEVALBUTEROL 1.25 MG/3 ML NEB ONE (14:59)
--- NOTE | 2022-11-11 15:55 | EDPHYS ---
Physician Documentation [facility] Name: Azalea Nunez Age: 37 yrs Sex: Female : 1985 Arrival Date: 11/11/2022 Time: 13:39 Bed DIS2 Private MD: Adilson Wellington E ED Physician Sherif Pa HPI: 11/11 14:11 This 37 yrs old Female presents to ER via Ambulatory with complaints of jmm Allergy Symptoms, Cough. 14:11 Onset: The symptoms/episode began/occurred gradually. Patient complains of sore throat, jmm sinus congestion, itchy watery eyes, cough and wheezing beginning approximately 5 days ago. Denies fever, denies infectious exposure. Patient also requested a refill of her prescribed medications.. Historical: - Allergies: 14:08 No Known Allergies; ap3 - PMHx: 14:08 Anxiety; Depression; Hypertension; Hypothyroidism; ap3 - Immunization history:: Client reports having NOT received the Covid vaccine. Flu vaccine is not up to date. - Social history:: Smoking status: Patient reports the use of cigarette tobacco products, denies chronic smoking, but will smoke occasionally. ROS: 14:11 Constitutional: Negative for fever, chills, and weight loss, Cardiovascular: Negative jmm for chest pain, palpitations, and edema. 14:11 Respiratory: Positive for cough, wheezing. 14:11 All other systems are negative. Exam: 14:11 Constitutional: This is a well developed, well nourished patient who is awake, alert, jmm and in no acute distress. Head/Face: atraumatic. Eyes: EOMI, no conjunctival erythema appreciated ENT: Moist Mucus Membranes Neck: Trachea midline, Supple Chest/axilla: Normal chest wall appearance and motion. Cardiovascular: Regular rate and rhythm. No edema appreciated 14:11 Back: Normal ROM Skin: General appearance color normal MS/ Extremity: Moves all extremities, no obvious deformities appreciated, no edema noted to the lower extremities Neuro: Awake and alert Psych: Behavior is normal, Mood is normal, Patient is cooperative and pleasant 14:11 Respiratory: the patient does not display signs of respiratory distress, Respirations: Breath sounds: wheezing: that is mild, is heard in the right posterior upper lobe. Vital Signs: 14:08 BP 141 / 97; Pulse 89; Resp 18; Temp 98.3; Pulse Ox 97% ; Weight 147.42 kg; ap3 MDM: 14:11 Patient medically screened. [place] 15:39 Data reviewed: vital signs, nurses notes. [facility] 18:09 I considered the following discharge prescriptions or medication management in the [facility] emergency department Medications were administered in the Emergency Department. See MAR. Counseling: I had a detailed discussion with the patient and/or guardian regarding: the historical points, exam findings, and any diagnostic results supporting the discharge/admit diagnosis, the need for outpatient follow up, to return to the emergency department if symptoms worsen or persist or if there are any questions or concerns that arise at home. ED course: No wheezing on reauscultation. Patient vies follow-up PCP and otherwise given strict return precautions. Patient understood and agrees plan of care. Administered Medications: 15:00 Drug: Decadron (dexamethasone) 10 mg Route: IM; Site: right deltoid; ld1 15:30 Follow up: Response: No adverse reaction aa5 15:00 Drug: Xopenex (levalbuterol) (3) 1.25 mg Route: Inhalation; ld1 15:30 Follow up: Response: Marked relief of symptoms aa5 Disposition Summary: 11/11/22 15:55 Discharge Ordered Location: Home [facility] Condition: Stable [facility] Diagnosis - Acute bronchospasm [facility] - Encounter for medication refill [facility] Followup: [facility] - With: Private Physician - When: 2 - 3 days - Reason: Recheck today's complaints, Continuance of care, Re-evaluation by your physician Discharge Instructions: - Discharge Summary Sheet [facility] - Bronchospasm, Adult [facility] Forms: - Medication Reconciliation Form [facility] - Thank You Letter [facility] - Antibiotic Education [facility] - Prescription Opioid Use [facility] - Work release form aa5 Prescriptions: - albuterol sulfate 90 mcg/actuation Inhalation HFA aerosol inhaler - inhale 2 puff by INHALATION route every 4 hours; 1 Pump; Refills: 0, Product [facility] Selection Permitted - amlodipine 10 mg Oral tablet - take 1 tablet by ORAL route once daily; 30 tablet; Refills: 0, Product [facility] Selection Permitted - citalopram 20 mg Oral tablet - take 1 tablet by ORAL route once daily; 30 tablet; Refills: 0, Product [facility] Selection Permitted - sertraline 100 mg Oral tablet - take 1 tablet by ORAL route once daily; 30 tablet; Refills: 0, Product jm Selection Permitted - Medrol (Harley) 4 mg Oral Tablets, Dose Pack - take 1 tablet by ORAL route as directed - follow package instructions; 1 jmm packet; Refills: 0, Product Selection Permitted - losartan 100 mg Oral tablet - take 1 tablet by ORAL route once daily; 30 tablet; Refills: 0, Product jm Selection Permitted - Levothyroxine 75 mcg Oral Tablet - take 1 tablet by ORAL route once daily take 30 minutes before breakfast; 30 jmm tablet; Refills: 0, Product Selection Permitted Addendum: 11/12/2022 19:53 Co-signature as Attending Physician, Darrin GOLDBERG I reviewed the patient's care r n provided by the Advanced Practice Provider and agree with the diagnosis and treatment plan. Signatures: Sherif Pa MD MD cha Mickail, Joel, PA PA jmm Nieto, Roman, MD MD rn Prokisch, Amanda, RN RN ap3 Carol Leiva RN RN ld1 Radha Goodrich RN aa5
--- NOTE | 2022-11-11 15:55 | ER ---
Nurse's Notes [facility] Name: Azalea Nunez Age: 37 yrs Sex: Female : 1985 Arrival Date: 11/11/2022 Time: 13:39 Bed DIS2 Private MD: Adilson Wellington E Diagnosis: Acute bronchospasm;Encounter for medication refill Presentation: 11/11 14:06 Chief complaint: Patient states: she has been having itchy, watery eyes for approx 5 ap3 days now. patient also complains of sneezing and coughing but denies fevers. Coronavirus screen: Client presents with at least one sign or symptom that may indicate coronavirus-19. Ebola Screen: No symptoms or risks identified at this time. Onset: The symptoms/episode began/occurred gradually, 5 day(s) ago. Anaphylaxis evaluation, no signs or symptoms of anaphylaxis were noted. Initial Sepsis Screen: Does the patient meet any 2 criteria? No. Patient's initial sepsis screen is negative. Does the patient have a suspected source of infection? No. Patient's initial sepsis screen is negative. Risk Assessment: Do you want to hurt yourself or someone else? Patient reports no desire to harm self or others. Onset of symptoms was November 06, 2022. 14:06 Method Of Arrival: Ambulatory ap3 14:06 Acuity: VEL 4 ap3 14:10 Chief complaint: Patient states: she is also in need of refills on her home medications.ap3 Triage Assessment: 14:08 General: Appears in no apparent distress. Behavior is calm, cooperative. Pain: Denies ap3 pain. EENT: Reports nasal congestion nasal discharge. EENT: Reports itchy, watery eyes. Neuro: Level of Consciousness is awake, alert, obeys commands, Oriented to person, place, time, situation. Cardiovascular: Patient's skin is warm and dry. Respiratory: Reports cough that is Airway is patent Respiratory effort is even, unlabored, Respiratory pattern is regular, symmetrical. Historical: - Allergies: 14:08 No Known Allergies; ap3 - PMHx: 14:08 Anxiety; Depression; Hypertension; Hypothyroidism; ap3 - Immunization history:: Client reports having NOT received the Covid vaccine. Flu vaccine is not up to date. - Social history:: Smoking status: Patient reports the use of cigarette tobacco products, denies chronic smoking, but will smoke occasionally. Screenin:09 [facility] ED Fall Risk Assessment (Adult) History of falling in the last 3 months, ap3 including since admission No falls in past 3 months (0 pts). Abuse screen: Denies threats or abuse. Nutritional screening: No deficits noted. Tuberculosis screening: No symptoms or risk factors identified. Assessment: 15:30 Reassessment: Patient is alert, oriented x 3, equal unlabored respirations, skin aa5 warm/dry/pink. Patient states feeling better. Patient states symptoms have improved. PA notified. . 16:05 Reassessment: Patient is alert, oriented x 3, equal unlabored respirations, skin aa5 warm/dry/pink. Vital Signs: 14:08 BP 141 / 97; Pulse 89; Resp 18; Temp 98.3; Pulse Ox 97% ; Weight 147.42 kg; ap3 ED Course: 13:39 Patient arrived in ED. as 13:39 Adilson Wellington MD is Private Physician. as 13:39 Reid Aceves [facility] 13:40 Darrin Josue MD is Attending Physician. [facility] 14:08 Triage completed. ap3 14:09 Arm band placed on left wrist. ap3 14:10 Attending Physician role handed off by Darrin Josue MD [facility] 14:10 Sherif Pa MD is Attending Physician. [facility] 16:05 No provider procedures requiring assistance completed. Patient did not have IV access aa5 during this emergency room visit. Administered Medications: 15:00 Drug: Decadron (dexamethasone) 10 mg Route: IM; Site: right deltoid; ld1 15:30 Follow up: Response: No adverse reaction aa5 15:00 Drug: Xopenex (levalbuterol) (3) 1.25 mg Route: Inhalation; ld1 15:30 Follow up: Response: Marked relief of symptoms aa5 Medication: 14:09 VIS not applicable for this client. ap3 Outcome: 15:55 Discharge ordered by . [facility] 16:05 Discharged to home ambulatory. aa5 16:05 Condition: improved 16:05 Discharge instructions given to patient, Instructed on discharge instructions, follow up and referral plans. medication usage, Demonstrated understanding of instructions, follow-up care, medications, Prescriptions given X 7 16:08 Patient left the ED. aa5 Signatures: Sherif Pa MD MD cha Mickail, Joel, PA PA jmm Martinez, Amelia as Calderon, Audri, RN RN aa5 Rosie Cee RN RN ap3 Carol Leiva RN RN ld1
[2022-11-11 16:44] VITALS: BP 141/97; TEMP 98.3; O2SAT 97
== END 2022-11-11 16:08 | disposition home or self-care (01) ==
LOC: ER 13:36
DX: J98.01 Acute bronchospasm (principal); Z76.0 Encounter for issue of repeat prescription; I10 Essential (primary) hypertension; F17.210 Nicotine dependence, cigarettes, uncomplicated
CPT/HCPCS: J7614; J1100

== ENCOUNTER 2023-01-26 13:43 | Emergency (ER) | payer OTHER ==
--- OUTSIDE RECORDS SUMMARY | 2023-01-26 13:46 | XMS REPORT | Continuity of Care Document ---
:1985 Author Organization [facility] t Address [address] [facility] [address] [place] [address] Care Team Providers Name Role Phone Unavailable Unavailable Unavailable Problems Condition Condition Condition Status Onset Resolution Last Treating Co mments Source Name Details Category Date Date Treatment Clinician Date Abnormal Abnormal Diagnosis Active Com mon urine odor urine odor Sp chema - 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, disorder, - [facility] episode[facility] Anxiety Anxiety Problem Active Common disorder, disorder, Spir it unspecifie unspecifie - CHI d d [facility] Essential Essential Problem Active Com mon hypertensi hypertensi Sp chema on on [facility] Vaginal Vaginal Diagnosis Active Commo n itching itching [facility] BMI BMI Problem Active Common 60.0-69.9, 60.0-69.9, Sp chema adult adult [facility] Hypomenorr Hypomenorr Problem Active C ommon hea hea [facility] Allergies, Adverse Reactions, Alerts This patient has no known allergies or adverse reactions. Medications Ordered Filled Start Stop Current Ordering Indication Dosage Frequency Signature Comments Components Source Medication Medication Date Date Medication? Clinician (SIG) Name Name Bactrim DS Bactrim DS 2018- No Sudha 1 tablet Common 04-29 [facility] 00:00: 00:00 - [facility]I 00 :00 [facility] Diflucan Diflucan 2018- No Sudha 1 tablet Common 04-29 [facility] 00:00: 00:00 - [facility]I 00 :00 [facility] Lorazepam Lorazepam Yes Sudha 1 tablet Common Jimenez at bedtime Spirit as needed [facility] Citalopram Citalopram Yes Sudha 1 tablet Common Hydrobromid Hydrobromid Jimenez S pirit e e - [facility] Metoprolol Metoprolol Yes Sudha 1 tablet Common Tartrate Tartrate Jimenez with food Sp chema - [facility] Trazodone Trazodone Yes Sudha 1 tablet Common HCl HCl Jimenez at bedtime Spirit as needed [facility] Losartan Losartan Yes Sudha 1 tablet Common Potassium Potassium Jimenez Spiri t [facility] Procedures This patient has no known procedures. Encounters Start End Encounter Admission Attending Care Care Encounter Source Date/Time Date/Time Type Type Clinicians Facility Department ID 2023-01-01 2023-01-01 Outpatient [facility] [id number] Ronald 15:42:08 15:42:08 [id number] F [place] 2018-04-29 2018-04-29 [id number] Common 10:30:00 10:30:00 [facility] - I Clinic [facility] Results Test Description Test Time Test Comments Results Result Comments Source HEMOGLOBIN A1c 2023-01-03 04:19:12 Test Item Value Reference Range Interpretation Comme nts HEMOGLOBIN A1c (test 7.1 % 4.2-5.6 H AMERIC AN DIABETES ASSOCIATION GUIDELINES FOR code = 31786) HGB A1C: PRED IABETES/INCREASED RISK . . . . . . . 5.7-6.4% DIAGNOSIS OF DIABETES . . . . . . . . . >=6.5 % WITH CONFIRMATION OR APPROPRIATE SYM PTOMS NOTE: ASSAY MAY BE AFFECTED BY HEM OGLOBINOPATHIES (SICKLE CELL ANEMIA, S-C DIS EASE, OTHERS) OR ARTIFICIALLY LOWERED BY DECR EASED RED CELL SURVIVAL (HEMOLYTIC ANEM IAS, BLOOD LOSS, ETC.). CONSIDER ALTERN ATE TESTING OR LABORATORY CONSULTATION. * [facility] has important pathology staff changes e ffective 11/19/2022. New pathology staff will provide uninterrupted, excellent patie nt care and clinical consultation. S ee URL: [email or web address]. UNLESS OTHERWISE INDIC ATED, ALL TESTING PERFORMED AT [employer] [address] [place] [address] [employer] INTERN: ANNE-MARIE ADKINS M.D. CLIA NUMBER [id number] [place]. [id number] TSH, THIRD [id number] 06:33:42 Test Item Value Reference Range Interpretation Comments TSH, THIRD 4.580 UIU/ML 0.400-4.100 H [facility] has im portant GENERATION (test pathology s taff code = 2821) changes effecti ve 11/19/2022. New pathology staff will provide uninter rupted, excellent patie nt care and clinical consultation. S ee URL: [email or web address]. UNLES S OTHERWISE INDIC ATED, ALL TESTING PER FORMED AT [facility], [facility]. [address] [place] [address] [facility] DIRECTOR: BRANDIE OVERTON M.D. C AZAR NUMBER [id number] CAP ACCREDITATION N O. [id number] COMPREHENSIVE METABOLIC [id number] 03:33:28 Test Item Value Reference Range Interpretation Comments GLUCOSE (test code = 126 MG/DL 70-99 H 2216) BUN (test code = 11 MG/DL 6-20 2207) CREATININE (test 0.81 MG/DL 0.60-1.30 code = 2214) eGFR (2020 CKD-EPI) 97 ML/MIN/1.73 >60 (test code = 95097) CALC BUN/CREAT (test 14 RATIO 6-28 code = 2235) SODIUM (test code = 140 MEQ/L [phone]) POTASSIUM (test code 4.1 MEQ/L 3.5-5.4 = 2228) CHLORIDE (test code 103 MEQ/L 95-107 = 2215) CARBON DIOXIDE (test 29 MEQ/L 19-31 code = 2206) CALCIUM (test code = 9.4 MG/DL 8.5-10.5 2208) PROTEIN, TOTAL (test 6.9 G/DL 6.1-8.3 code = 2229) ALBUMIN (test code = 4.1 G/DL 3.5-5.2 2200) CALC GLOBULIN (test 2.8 G/DL 1.9-3.7 code = 2240) CALC A/G RATIO (test 1.5 RATIO 1.0-2.6 code = 2234) BILIRUBIN, TOTAL <0.2 MG/DL See_Comment [Automated message] (test code = 2207) The syste m which generated this result transmit ez reference range : <=1.2. The refe rence range was not u sed to interpret th is result as normal/abnormal . ALKALINE PHOSPHATASE 141 U/L 40-114 H (test code = 2203) AST (test code = 20 U/L 9-40 2217) ALT (test code = 27 U/L 5-40 2218) LIPID [id number] 03:33:28 Test Item Value Reference Range Interpretation Comments CHOLESTEROL (test 174 MG/DL <200 code = 2210) TRIGLYCERIDES (test 169 MG/DL <150 H code = 2232) HDL CHOLESTEROL (test 45 MG/DL >39 code = 2220) CALC LDL CHOL (test 102 MG/DL <100 H NOTE: C ALCULATED LDL code = 2237) IS BASED ON BK-YING METHOD WHICHINCLUDES ADJUSTABLE TRIGLYCERIDE:VL DL CHOLESTEROL RAT IO.THIS FACTOR VARIES B Y MEASURED TRIGLY CERIDE AND NON-HDLCHOL ESTEROL CONCENTRATIONS WITH INCREASED CALCU LATED LDL SEENIN HIGH ER TRIGLYCERIDE OR LOWER NON-HDL SPECIME NS. FOR MOREINFORMATION , SEE CLIENT ANNOUNCE MENT AT [email or web address] [email or web address] LDL/HDL 2.27 RATIO <3.22 (test code = 2238)
[2023-01-26] MEDS ORDERED: dexAMETHasone 10 MG/ML VIAL ONE (16:06)
--- NOTE | 2023-01-26 16:14 | ER ---
Nurse's Notes [facility] Name: Azalea Nunez Age: 37 yrs Sex: Female : 1985 Arrival Date: 01/26/2023 Time: 13:43 Bed 24 Private MD: Adilson Wellington E Diagnosis: Cough Presentation: 01/26 14:32 Chief complaint: Patient states: she is congested, and is having some sinus pressure ap3 that started 01/22/2023. Coronavirus screen: Client presents with at least one sign or symptom that may indicate coronavirus-19. Ebola Screen: No symptoms or risks identified at this time. Initial Sepsis Screen: Does the patient meet any 2 criteria? No. Patient's initial sepsis screen is negative. Does the patient have a suspected source of infection? No. Patient's initial sepsis screen is negative. Risk Assessment: Do you want to hurt yourself or someone else? Patient reports no desire to harm self or others. Onset of symptoms was January 22, 2023. 14:32 Method Of Arrival: Ambulatory ap3 14:32 Acuity: VEL 4 ap3 Triage Assessment: 14:34 General: Appears in no apparent distress. Behavior is calm, cooperative, appropriate ap3 for age. Pain: Denies pain. EENT: Reports nasal congestion nasal discharge. Neuro: Level of Consciousness is awake, alert, obeys commands, Oriented to person, place, time, situation. Cardiovascular: Patient's skin is warm and dry. Respiratory: Reports cough that is Airway is patent Respiratory effort is even, unlabored, Respiratory pattern is regular, symmetrical. 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 - Social history:: Smoking status: Patient denies any tobacco usage or history of. Screenin:[address] [facility] ED Fall Risk Assessment (Adult) History of falling in the last 3 months, ap3 including since admission No falls in past 3 months (0 pts). Abuse screen: Denies threats or abuse. Nutritional screening: No deficits noted. Tuberculosis screening: No symptoms or risk factors identified. Assessment: 16:06 Reassessment: Patient is alert, oriented x 3, equal unlabored respirations, skin aa5 warm/dry/pink. 16:21 Reassessment: Patient is alert, oriented x 3, equal unlabored respirations, skin aa5 warm/dry/pink. Vital Signs: 14:32 BP 142 / 94; Pulse 92; Resp 16; Temp 97.4; Pulse Ox 96% ; Weight 147.42 kg; Height 5 ap3 ft. 4 in. ; 14:32 Body Mass Index 55.79 (147.42 kg, 162.56 cm) ap3 ED Course: 13:44 Patient arrived in ED. am2 13:44 Adilson Wellington MD is Private Physician. am2 13:50 Reid Aceves PA is [facility] 13:50 Sherif Pa MD is Attending Physician. [facility] 14:33 Triage completed. ap3 14:34 Arm band placed on right wrist. ap3 16:21 No provider procedures requiring assistance completed. Patient did not have IV access aa5 during this emergency room visit. Administered Medications: 16:06 Drug: Dexamethasone IM 10 mg Route: IM; Site: left gluteus; aa5 16:21 Follow up: Response: No adverse reaction aa5 Medication: 16:22 VIS not applicable for this client. aa5 Outcome: 16:13 Discharge ordered by . [facility] 16:21 Discharged to home ambulatory. aa5 16:21 Condition: stable 16:21 Discharge instructions given to patient, Instructed on discharge instructions, follow up and referral plans. medication usage, Demonstrated understanding of instructions, follow-up care, medications, Prescriptions given X 2. 16:22 Patient left the ED. aa5 Signatures: Reid Aceves PA PA jmm Calderon, Audri, RN RN aa5 Rosie Chavez am2 Rosie Cee RN RN ap3
--- NOTE | 2023-01-26 16:14 | EDPHYS ---
Physician Documentation [facility] Name: Azalea Nunez Age: 37 yrs Sex: Female : 1985 Arrival Date: 01/26/2023 Time: 13:43 Bed 24 Private MD: Adilson Wellington E ED Physician Sherif Pa HPI: 01/26 14:37 This 37 yrs old Female presents to ER via Ambulatory with complaints of Cough, jmm Sinus Congestion. 14:37 The patient or guardian reports cough. Onset: The symptoms/episode began/occurred jmm gradually, 1 week(s) ago. Modifying factors: The symptoms are alleviated by nothing, the symptoms are aggravated by nothing. Associated signs and symptoms: Pertinent positives: sore throat. The patient has experienced similar episodes in the past. 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 - Social history:: Smoking status: Patient denies any tobacco usage or history of. ROS: 14:37 Constitutional: Negative for fever, chills, and weight loss. jmm 14:37 ENT: Positive for sore throat. 14:37 Respiratory: Positive for cough. 14:37 All other systems are negative. Exam: 14:37 Constitutional: This is a well developed, well nourished patient who is awake, alert, jmm and in no acute distress. Head/Face: atraumatic. Eyes: EOMI, no conjunctival erythema appreciated 14:37 Neck: Trachea midline, Supple Chest/axilla: Normal chest wall appearance and motion. Cardiovascular: Regular rate and rhythm. No edema appreciated Respiratory: Normal respirations, no respiratory distress appreciated Abdomen/GI: Non distended Back: Normal ROM Skin: General appearance color normal MS/ Extremity: Moves all extremities, no obvious deformities appreciated, no edema noted to the lower extremities Neuro: Awake and alert Psych: Behavior is normal, Mood is normal, Patient is cooperative and pleasant 14:37 ENT: Posterior pharynx: erythema, that is moderate. Vital Signs: 14:32 BP 142 / 94; Pulse 92; Resp 16; Temp 97.4; Pulse Ox 96% ; Weight 147.42 kg; Height 5 ap3 ft. 4 in. ; 14:32 Body Mass Index 55.79 (147.42 kg, 162.56 cm) ap3 MDM: 14:37 Patient medically screened. [facility] 14:37 Differential Diagnosis: Bronchitis Upper Respiratory Infection Sinusitis Pharyngitis. [facility] Data reviewed: vital signs, nurses notes. I considered the following discharge prescriptions or medication management in the emergency department Medications were administered in the Emergency Department. See MAR. Counseling: I had a detailed discussion with the patient and/or guardian regarding: the historical points, exam findings, and any diagnostic results supporting the discharge/admit diagnosis, the need for outpatient follow up, to return to the emergency department if symptoms worsen or persist or if there are any questions or concerns that arise at home. Administered Medications: 16:06 Drug: Dexamethasone IM 10 mg Route: IM; Site: left gluteus; aa5 16:21 Follow up: Response: No adverse reaction aa5 Disposition Summary: 01/26/23 16:13 Discharge Ordered Location: Home [facility] Condition: Stable [facility] Diagnosis - Cough [facility] Followup: [facility] - With: Private Physician - When: 2 - 3 days - Reason: Recheck today's complaints, Continuance of care, Re-evaluation by your physician Discharge Instructions: - Cough, Adult [facility] - Discharge Summary Sheet aa5 Forms: - Medication Reconciliation Form [facility] - Thank You Letter [facility] - Antibiotic Education [facility] - Prescription Opioid Use [facility] - Work release form aa5 Prescriptions: - Prednisone 20 mg Oral Tablet - take 3 tablets by ORAL route once daily for 5 days; 15 tablet; Refills: 0, [facility] Product Selection Permitted - Zithromax Z-Harley 250 mg Oral Tablet - take 1 tablet by ORAL route as directed for 5 days Day 1 - take two (2) tablets [facility] one time. Day 2, 3, 4 , 5 take one (1) tablet once daily.; 6 tablet; Refills: 0, Product Selection Permitted Signatures: Reid Aceves PA PA jmm Calderon, Audri, RN RN aa5 Rosie Cee RN RN ap3
[2023-01-26 16:31] VITALS: BP 142/94; TEMP 97.4; O2SAT 96
== END 2023-01-26 16:22 | disposition home or self-care (01) ==
LOC: ER 13:43
DX: R05.9 Cough, unspecified (principal); R07.0 Pain in throat
CPT/HCPCS: 96372; 99284; J1100

== ENCOUNTER 2023-05-10 04:16 | Emergency (ER) | payer OTHER ==
--- OUTSIDE RECORDS SUMMARY | 2023-05-10 04:19 | XMS REPORT | Continuity of Care Document ---
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, disorder, - [facility] I single single [facility] episode, episode, [facility] [place] Anxiety Anxiety Problem Active Common disorder, disorder, Spir it unspecifie unspecifie - [facility]I d d [facility] Essential Essential Problem Active Com mon hypertensi hypertensi Sp chema on on [facility] Vaginal Vaginal Diagnosis Active Commo n itching itching [facility] BMI BMI Problem Active Common 60.0-69.9, 60.0-69.9, Sp chema adult adult [facility] Hypomenorr Hypomenorr Problem Active C ommon hea hea [facility] Allergies, Adverse Reactions, Alerts This patient has no known allergies or adverse reactions. Medications Ordered Filled Start Stop Current Ordering Indication Dosage Frequency Signature Comments Components Source Medication Medication Date Date Medication? Clinician (SIG) Name Name Bactrim DS Bactrim DS 2018- No Sudha 1 tablet Common 04-29 [facility] 00:00: 00:00 - [facility]I 00 :00 [facility] Diflucan Diflucan 2018- No Sudha 1 tablet Common 04-29 [facility] 00:00: 00:00 - [facility]I 00 :00 [facility] Losartan Losartan Yes Sudha 1 tablet Common Potassium Potassium [facility] Spiri t [facility] Lorazepam Lorazepam Yes Sudha 1 tablet Common Jimenez at bedtime Spirit as needed [facility] Citalopram Citalopram Yes Sudha 1 tablet Common Hydrobromid Hydrobromid Jimenez S pirit e e [facility] Metoprolol Metoprolol Yes Sudha 1 tablet Common Tartrate Tartrate Jimenez with food Sp chema - [facility] Trazodone Trazodone Yes Sudha 1 tablet Common HCl HCl Jimenez at bedtime Spirit as needed - [facility] Procedures This patient has no known procedures. Encounters Start End Encounter Admission Attending Care Care Encounter Source Date/Time Date/Time Type Type Clinicians Facility Department ID 2023-04-09 2023-04-09 Outpatient [facility] [id number] Ronald 08:51:21 08:51:21 [id number] F [place] 2023-02-20 2023-02-20 Outpatient [facility] [id number] 08:45:26 08:45:26 [id number] F [place] 2023-01-01 2023-01-01 Outpatient [facility] [id number] Ronald 15:42:08 15:42:08 [id number] F [place] 2018-04-29 2018-04-29 [facility] 15 [id number] Common 10:30:00 10:30:00 t [facility] - I Clinic [facility] Results Test Description Test Time Test Comments Results Result Comments Source HEMOGLOBIN A1c 2023-01-03 04:19:12 Test Item Value Reference Range Interpretation Comme nts HEMOGLOBIN A1c (test 7.1 % 4.2-5.6 H AMERIC AN DIABETES ASSOCIATION GUIDELINES FOR code = 10410) HGB A1C: PRED IABETES/INCREASED RISK . . [...] ALTERN ATE TESTING OR LABORATORY CONSULTATION. * [facility] has important pathology staff changes e ffective 11/19/2022. New pathology staff will provide uninterrupted, excellent patie nt care and clinical consultation. S ee URL: [email or web address]. UNLESS OTHERWISE INDIC ATED, ALL TESTING PERFORMED AT [facility] [employer], [facility]. [address] [place] [id number] SUPERINTENDENT PRESSURE: ANNE-MARIE ADKINS M.D. CLIA NUMBER [id number] [place]. [id number] TSH, THIRD [id number] 06:33:42 Test Item Value Reference Range Interpretation Comments TSH, THIRD 4.580 UIU/ML 0.400-4.100 H [facility] has im portant GENERATION (test pathology s taff code = 2821) changes effecti ve 11/19/2022. New pathology staff will provide uninter rupted, excellent patie nt care and clinical consultation. S ee URL: [email or web address]. UNLES S OTHERWISE INDIC ATED, ALL TESTING PER FORMED AT [facility] [employer] [facility]. [address] [place] [id number] [facility] DIRECTOR: BRANDIE OVERTON M.D. C AZAR NUMBER [id number] CAP ACCREDITATION N O. [id number] COMPREHENSIVE METABOLIC [id number] 03:33:28 Test Item Value Reference Range Interpretation Comments GLUCOSE (test code = 126 MG/DL 70-99 H 2216) BUN (test code = 11 MG/DL 6-20 2207) CREATININE (test 0.81 MG/DL 0.60-1.30 code = 2214) eGFR (2020 CKD-EPI) 97 ML/MIN/1.73 >60 (test code = 18910) CALC BUN/CREAT (test 14 RATIO 6-28 code = 2235) SODIUM (test code = 140 MEQ/L [phone]) POTASSIUM (test code 4.1 MEQ/L 3.5-5.4 = [...] MG/DL See_Comment [Automated message] (test code = 220) The syste m which generated this result transmit ez reference range : <=1.2. The refe rence range was not u sed to interpret th is result as normal/abnormal . ALKALINE PHOSPHATASE 141 U/L 40-114 H (test code = 2203) AST (test code = 20 U/L 9-40 2217) ALT (test code = 27 U/L 5-40 2218) LIPID [id number] 03:33:28 Test Item Value Reference Range Interpretation [...] MOREINFORMATION , SEE CLIENT ANNOUNCE MENT AT [email or web address] LDL/HDL 2.27 RATIO <3.22 (test code = 2238)
--- NOTE | 2023-05-10 04:46 | ER ---
Nurse's Notes [facility] Name: Azalea Nunez Age: 37 yrs Sex: Female : 1985 Arrival Date: 05/10/2023 Time: 04:16 Bed 18 Private MD: Diagnosis: Dentalgia Presentation: 05/10 04:39 Chief complaint: Patient states: upper and lower mouth pain,onset 3 days ago. Patient pf1 stated has a dentist appointment scheduled on 06/08. Coronavirus screen: Vaccine status: Patient reports being unvaccinated. Client denies travel out of the [place] in the last 14 days. At this time, the client does not indicate any symptoms associated with coronavirus-19. Ebola Screen: Patient negative for fever greater than or equal to 101.5 degrees Fahrenheit, and additional compatible Ebola Virus Disease symptoms. Initial Sepsis Screen: Does the patient meet any 2 criteria? No. Patient's initial sepsis screen is negative. Does the patient have a suspected source of infection? No. Patient's initial sepsis screen is negative. Risk Assessment: Do you want to hurt yourself or someone else? Patient reports no desire to harm self or others. 04:39 Method Of Arrival: Ambulatory pf1 04:39 Acuity: VEL 5 pf1 Triage Assessment: 05:15 General: Appears uncomfortable, Behavior is calm, cooperative. Pain: Complains of pain ll3 in mouth Pain currently is 10 out of 10 on a pain scale. EENT: Reports pain C/o tooth ache X 3 days. Derm: Skin is pink, warm \T\ dry. Historical: - Allergies: 04:43 No Known Allergies; pf1 - Home Meds: 04:43 amlodipine oral [Active]; losartan 50 mg Oral tab 1 tab once daily [Active]; pf1 - PMHx: 04:43 Anxiety; Depression; Hypertension; Hypothyroidism; pf1 - PSHx: 04:43 None; pf1 - Immunization history:: Adult Immunizations up to date, Last tetanus immunization: > 10 years ago Flu vaccine is not up to date. - Social history:: Smoking status: Patient denies any tobacco usage or history of. Patient/guardian denies using alcohol, street drugs. Screenin:14 [facility] ED Fall Risk Assessment (Adult) History of falling in the last 3 months, ll3 including since admission No falls in past 3 months (0 pts) Confusion or Disorientation No (0 pts) Intoxicated or Sedated No (0 pts) Impaired Gait No (0 pts) Mobility Assist Device Used No (0 pt) Altered Elimination No (0 pt) Score/Fall Risk Level 0 - 2 = Low Risk Oriented to surroundings, Maintained a safe environment, Educated pt \T\ family on fall prevention, incl call for assistance when getting out of bed. Abuse screen: Denies threats or abuse. Denies injuries from another. Nutritional screening: No deficits noted. Tuberculosis screening: No symptoms or risk factors identified. Vital Signs: 04:39 BP 149 / 96; Pulse 78; Resp 18; Temp 97.2; Pulse Ox 98% on R/A; Weight 142.88 kg; pf1 Height 5 ft. 4 in. ; 04:39 Body Mass Index 54.07 (142.88 kg, 162.56 cm) pf1 ED Course: 04:22 Patient arrived in ED. kj1 04:29 Magy Haskins MD is Attending Physician. sd2 04:43 Triage completed. pf1 05:15 Arm band placed on Patient placed in an exam room, on a stretcher, on pulse oximetry. ll3 05:16 Patient has correct armband on for positive identification. Bed in low position. Call ll3 light in reach. Side rails up X 1. 05:16 No provider procedures requiring assistance completed. Patient did not have IV access ll3 during this emergency room visit. Administered Medications: 05:02 CANCELLED (Physician Discretion): HYDROcodone-acetaminophen PO 5 mg-325 mg 1 tabs PO sd2 once 05:13 Drug: Clindamycin PO 300 mg Route: PO; ad6 05:17 Follow up: Response: Medication administered at discharge. ll3 05:13 Drug: Ketorolac IM 60 mg Route: IM; Site: right deltoid; ad6 05:17 Follow up: Response: Medication administered at discharge. ll3 Medication: 05:16 VIS not applicable for this client. ll3 Outcome: 04:45 Discharge ordered by . sd2 05:16 Discharged to home ambulatory. ll3 05:16 Condition: stable 05:16 Discharge instructions given to patient, Instructed on discharge instructions, follow up and referral plans. medication usage, Demonstrated understanding of instructions, follow-up care, medications. 05:17 Patient left the ED. ll3 Signatures: Roslyn Villafana1 Juan Ogden RN RN ll3 Magy Haskins MD MD sd2 Matilda Bentley RN RN pf1 Sara Sharpe RN RN ad6
--- NOTE | 2023-05-10 04:46 | EDPHYS ---
Physician Documentation [facility] Name: Azalea Nunez Age: 37 yrs Sex: Female : 1985 Arrival Date: 05/10/2023 Time: 04:16 Bed 18 Private MD: ED Physician Magy Haskins HPI: 05/10 04:39 This 37 yrs old Female presents to ER via Unassigned with complaints of sd2 Toothache. 04:39 37 yo F presents with CC of toothache for the past 3 days. Reports upper and lower sd2 molars on her right side have been painful with no appreciable swelling, drainage or fevers. Taking Tylenol and Ibuprofen with no relief. Has had similar issues in the past treated with diclofenac. Has a dentist appointment scheduled for 06/08 as this was the earliest she could get in to be seen.. Historical: - Allergies: 04:43 No Known Allergies; pf1 - Home Meds: 04:43 amlodipine oral [Active]; losartan 50 mg Oral tab 1 tab once daily [Active]; pf1 - PMHx: 04:43 Anxiety; Depression; Hypertension; Hypothyroidism; pf1 - PSHx: 04:43 None; pf1 - Immunization history:: Adult Immunizations up to date, Last tetanus immunization: > 10 years ago Flu vaccine is not up to date. - Social history:: Smoking status: Patient denies any tobacco usage or history of. Patient/guardian denies using alcohol, street drugs. ROS: 04:39 Constitutional: Negative for fever, chills, and weight loss, Eyes: Negative for injury, sd2 pain, redness, and discharge, ENT: Negative for injury, positive for pain, and negative for discharge, Neck: Negative for injury, pain, and swelling, Skin: Negative for injury, rash, and discoloration. Exam: 04:39 Constitutional: This is a well developed, well nourished patient who is awake, alert, sd2 and in no acute distress. Head/Face: Normocephalic, atraumatic. Eyes: EOMI, normal conjunctiva bilaterally ENT: Nares patent. No nasal discharge, no septal abnormalities noted. Tympanic membranes are normal and external auditory canals are clear. Oropharynx with no redness, swelling, or masses, exudates, or evidence of obstruction, uvula midline. Mucous membranes moist. Poor dentition noted to both upper and lower molars on the right side at the most posterior aspect of the gumline. No swelling or drainage noted. No visible abscess. Percussion tenderness present. Skin: Warm, dry with normal turgor. Normal color with no rashes, no lesions, and no evidence of cellulitis. Vital Signs: 04:39 BP 149 / 96; Pulse 78; Resp 18; Temp 97.2; Pulse Ox 98% on R/A; Weight 142.88 kg; pf1 Height 5 ft. 4 in. ; 04:39 Body Mass Index 54.07 (142.88 kg, 162.56 cm) pf1 MDM: 04:29 Patient medically screened. sd2 04:39 Differential diagnosis: periapical abscess, gingivitis, dental caries, dental abscess sd2 among others. Data reviewed: vital signs, nurses notes. Consideration of Admission/Observation. I considered the following discharge prescriptions or medication management in the emergency department Medications were administered in the Emergency Department. See MAR. Care significantly affected by the following chronic conditions: Hypertension. Counseling: I had a detailed discussion with the patient and/or guardian regarding the historical points, exam findings, and any diagnostic results supporting the discharge/admit diagnosis, the need for outpatient follow up, to return to the emergency department if symptoms worsen or persist or if there are any questions or concerns that arise at home. ED course: Pt treated appropriately with antibiotics and pain control. Advised of need for follow up with dentist for definitive treatment and likely tooth extraction. Pt comfortable with plan for discharge and outpatient follow up and verbalizes understanding of strict return precautions.. Administered Medications: 05:02 CANCELLED (Physician Discretion): HYDROcodone-acetaminophen PO 5 mg-325 mg 1 tabs PO sd2 once 05:13 Drug: Clindamycin PO 300 mg Route: PO; ad6 05:17 Follow up: Response: Medication administered at discharge. ll3 05:13 Drug: Ketorolac IM 60 mg Route: IM; Site: right deltoid; ad6 05:17 Follow up: Response: Medication administered at discharge. ll3 Disposition Summary: 05/10/23 04:45 Discharge Ordered Location: Home sd2 Problem: new sd2 Symptoms: have improved sd2 Condition: Stable sd2 Diagnosis - Dentalgia sd2 Followup: sd2 - With: Private Physician - When: 2 - 3 days - Reason: Recheck today's complaints, Continuance of care, Re-evaluation by your physician Discharge Instructions: - Discharge Summary Sheet sd2 - Dental Extraction sd2 - Dental Pain sd2 Forms: - Medication Reconciliation Form sd2 - Thank You Letter sd2 - Antibiotic Education sd2 - Prescription Opioid Use sd2 - Patient Portal Instructions sd2 - Leadership Thank You Letter sd2 Prescriptions: - Clindamycin HCl 300 mg Oral Capsule - take 1 capsule by ORAL route every 6 hours for 10 days; 40 capsule; Refills: 0, sd2 Product Selection Permitted - Diclofenac Sodium 75 mg Oral tablet,delayed release (DR/EC) - take 1 tablet by ORAL route 2 times per day As needed; 20 tablet; Refills: 0, sd2 Product Selection Permitted Signatures: Magy Haskins MD MD sd2 Matilda eBntley RN RN pf1 Sara Sharpe RN RN ad6 Juan Ogden RN ll3 Corrections: (The following items were deleted from the chart) 05:02 04:44 HYDROcodone-acetaminophen PO 5 mg-325 mg 1 tabs PO once ordered. sd2 sd2
[2023-05-10] MEDS ORDERED: HYDROCODONE/APAP 5/325 MG TAB ONE (05:04)
[2023-05-10] MEDS ORDERED: KETOROLAC 30 MG/ML INJ ONE (05:15)
[2023-05-10 05:30] VITALS: BP 149/96; TEMP 97.2; O2SAT 98
== END 2023-05-10 05:17 | disposition home or self-care (01) ==
LOC: ER 04:16
DX: K08.89 Other specified disorders of teeth and supporting structures (principal); I10 Essential (primary) hypertension
CPT/HCPCS: 96372; 99284

== ENCOUNTER 2023-08-04 00:18 | Emergency (ER) | payer SELFPAY ==
--- OUTSIDE RECORDS SUMMARY | 2023-08-04 00:21 | XMS REPORT | Continuity of Care Document ---
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, disorder, - [facility] single [facility] episode, episode, [facility] Anxiety Anxiety Problem Active Common disorder, disorder, Spir it unspecifie unspecifie - [facility] d d [facility] Essential Essential Problem Active Com mon hypertensi hypertensi Sp chema on on [facility] Vaginal Vaginal Diagnosis Active Commo n itching itching [facility] BMI BMI Problem Active Common 60.0-69.9, 60.0-69.9, Sp chema adult adult [facility] Hypomenorr Hypomenorr Problem Active C ommon hea hea [facility] Allergies, Adverse Reactions, Alerts This patient has no known allergies or adverse reactions. Medications Ordered Filled Start Stop Current Ordering Indication Dosage Frequency Signature Comments Components Source Medication Medication Date Date Medication? Clinician (SIG) Name Name Bactrim DS Bactrim DS 2017- No Sudha 1 tablet Common 04-29 [facility] 00:00: 00:00 - [facility] 00 :00 [facility] Diflucan Diflucan 2017- No Sudha 1 tablet Common 04-29 [facility] 00:00: 00:00 - [facility] 00 :00 [facility] Losartan Losartan Yes Sudha 1 tablet Common Potassium Potassium [facility] - [facility] Lorazepam Lorazepam Yes Sudha 1 tablet Common [facility]enez at bedtime Spirit as needed - [facility] Citalopram Citalopram Yes Sudha 1 tablet Common Hydrobromid Hydrobromid [facility] S pirit e e - [facility] Metoprolol Metoprolol Yes Sudha 1 tablet Common Tartrate Tartrate [facility] with food Sp chema - [facility] Trazodone Trazodone Yes Sudha 1 tablet Common HCl HCl Jimenez at bedtime Spirit as needed - [facility] Procedures This patient has no known procedures. Encounters Start End Encounter Admission Attending Care Care Encounter Source Date/Time Date/Time Type Type Clinicians Facility Department ID 2023-07-21 2023-07-21 Outpatient [email or web address] PRIV PRIV [id number] [facility] 00:00:00 00:00:00 diyala_S [id number] Medic al 2023-07-20 2023-07-20 Outpatient [email or web address] PRIV PRIV [id number] [facility] 00:00:00 00:00:00 diyala_S [id number] Medic al 2023-04-09 2023-04-09 Outpatient [facility] [id number] [facility] 08:51:21 08:51:21 [id number] F [place] 2023-02-20 2023-02-20 Outpatient [facility] [id number] [place] 08:45:26 08:45:26 [id number] F Sidney 2023-01-01 2023-01-01 Outpatient [facility] [id number] [place] 15:42:08 15:42:08 [id number] F [place] 2018-04-29 2018-04-29 [facility] [id number] Common 10:30:00 10:30:00 [facility] - [facility] Clinic [facility] Results Test Description Test Time Test Comments Results Result Comments Source HEMOGLOBIN A1c 2023-01-03 04:19:12 Test Item Value Reference Range Interpretation Comme nts HEMOGLOBIN A1c (test 7.1 % 4.2-5.6 H [employer] GUIDELINES FOR code = 56980) HGB A1C: PREDI ABETES/INCREASED RISK . . . . . . . 5.7-6.4% DI AGNOSIS OF DIABETES . . . . . . . . . >=6.5% WITH CONFIRMATION OR APPROPRIATE SYM PTOMS NOTE: ASSAY MAY BE AFFECTED BY HEM OGLOBINOPATHIES (SICKLE CELL ANEMIA, S-C DIS EASE, OTHERS) OR ARTIFICIALLY LOWERED BY DECR EASED RED CELL SURVIVAL (HEMOLYTIC ANEM IAS, BLOOD LOSS, ETC.). CONSIDER ALTERN ATE TESTING OR LABORATORY CONSULTATION. * [facility] has important pathology staff changes e ffective 11/19/2022. New pathology staff will provide uninterrupted, excellent patie nt care and clinical consultation. S ee URL: [email or web address]. UNLESS OTHERWISE INDIC ATED, ALL TESTING PERFORMED AT CLINICAL [employer] [address] [place] [id number] SECURITY DISPATCHER: BRANDIE OVERTON M.D. CLIA NUMBER [id number] [place]. [id number] TSH, THIRD [id number] 06:33:42 Test Item Value Reference Range Interpretation Comments TSH, THIRD 4.580 UIU/ML 0.400-4.100 H [facility] has im portant GENERATION (test pathology s taff code = 2821) changes effecti ve 11/19/2022. New pathology staff will provide uninter rupted, excellent patie nt care and clinical consultation. S ee URL: [email or web address]. UNLES S OTHERWISE INDIC ATED, ALL TESTING PER FORMED AT CLINICAL [facility]. [address] [place] [id number] [place] [address] DIRECTOR: BRANDIE OVERTON M.D. C AZAR NUMBER [id number] CAP ACCREDITATION N O. [id number] COMPREHENSIVE METABOLIC [id number] 03:33:28 Test Item Value Reference Range Interpretation Comments GLUCOSE (test code = 126 MG/DL 70-99 H 2216) BUN (test code = 11 MG/DL 6-20 2207) CREATININE (test 0.81 MG/DL 0.60-1.30 code = 221) eGFR (2020 CKD-EPI) 97 ML/MIN/1.73 >60 (test code = 54455) CALC BUN/CREAT (test 14 RATIO 6-28 code = 2235) SODIUM (test code = 140 MEQ/L 247-778 1721) POTASSIUM (test code 4.1 MEQ/L 3.5-5.4 = 2227) CHLORIDE (test code 103 MEQ/L 95-107 = 221) CARBON DIOXIDE (test 29 MEQ/L 19-31 code = 220) CALCIUM (test code = 9.4 MG/DL 8.5-10.5 2208) PROTEIN, TOTAL (test 6.9 G/DL 6.1-8.3 code = 222) ALBUMIN (test code = 4.1 G/DL 3.5-5.2 2200) CALC GLOBULIN (test 2.8 G/DL 1.9-3.7 code = 224) CALC A/G RATIO (test 1.5 RATIO 1.0-2.6 code = 223) BILIRUBIN, TOTAL <0.2 MG/DL See_Comment [Automated message] (test code = 2206) The syste m which generated this result transmit ez reference range : <=1.2. The refe rence range was not u sed to interpret th is result as normal/abnormal . ALKALINE PHOSPHATASE 141 U/L 40-114 H (test code = 2203) AST (test code = 20 U/L 9-40 2217) ALT (test code = 27 U/L 5-40 2218) LIPID [id number] 03:33:28 Test Item Value Reference Range Interpretation [...] MOREINFORMATION , SEE CLIENT ANNOUNCE MENT AT [email or web address] RATIO LDL/HDL 2.27 RATIO <3.22 (test code = 2238)
--- NOTE | 2023-08-04 00:33 | EDPHYS ---
Physician Documentation [facility] Name: Azalea Nunez Age: 38 yrs Sex: Female : 1985 Arrival Date: 08/04/2023 Time: 00:18 Bed IW1 Private MD: ED Physician Edvin Calzada HPI: 08/04 00:30 This 38 yrs old Female presents to ER via Ambulatory with complaints of sp3 Toothache, Anxiety. 00:30 38-year-old female with history of hypertension, depression, anxiety multiple dental sp3 caries now presents to the ED with right-sided tooth pain and anxiety symptoms for several days. Patient has been seen multiple times for her dental issues and has failed to seek proper dental care. She denies fever, headache, throat pain, neck pain, shortness of breath, chest pain, or any other signs or symptoms on ROS at this time.. EXTRUSION FORMER: 00:29 LMP 06/27/2023, unknown vc1 Historical: - Allergies: 00:27 No Known Allergies; vc1 - PMHx: 00:27 Anxiety; Depression; Hypertension; Hypothyroidism; vc1 - PSHx: 00:27 None; vc1 - Social history:: Smoking status: Patient denies any tobacco usage or history of. ROS: 00:31 Constitutional: Negative for fever, chills, and weight loss, Eyes: Negative for injury, sp3 pain, redness, and discharge, Neck: Negative for injury, pain, and swelling, Cardiovascular: Negative for chest pain, palpitations, and edema, Respiratory: Negative for shortness of breath, cough, wheezing, and pleuritic chest pain, Abdomen/GI: Negative for abdominal pain, nausea, vomiting, diarrhea, and constipation, Back: Negative for injury and pain, MS/Extremity: Negative for injury and deformity, Skin: Negative for injury, rash, and discoloration, Neuro: Negative for headache, weakness, numbness, tingling, and seizure, 00:31 All other systems are negative, Exam: 00:31 Constitutional: This is a well developed, well nourished patient who is awake, alert, sp3 and in no acute distress. Head/Face: Normocephalic, atraumatic. Neck: Trachea midline, no thyromegaly or masses palpated, and no cervical lymphadenopathy. Supple, full range of motion without nuchal rigidity, or vertebral point tenderness. No Meningismus. Chest/axilla: Normal chest wall appearance and motion. Nontender with no deformity. No lesions are appreciated. Cardiovascular: Regular rate and rhythm with a normal S1 and S2. No gallops, murmurs, or rubs. Normal PMI, no JVD. No pulse deficits. 00:31 ENT: Right mandibular molar with positive tooth decay without signs of infection, gum swelling or erythema.. Vital Signs: 00:23 BP 148 / 92; Pulse 88; Resp 20; Pulse Ox 99% ; vc1 00:29 Weight 141.07 kg; Height 5 ft. 4 in. ; Pain 10/10; vc1 00:29 Body Mass Index 53.38 (141.07 kg, 162.56 cm) vc1 00:29 Pain Scale: Adult vc1 MDM: 00:32 Data reviewed: vital signs, nurses notes. ED course: 8-year-old female with toothache sp3 without signs of infection. Antibiotics not indicated. Initially we were going to give alprazolam for anxiety however she is driving so therefore we will not. Ibuprofen 600 mg p.o. and she can take further OTC ibuprofen and follow-up with dental clinic as needed.. 00:33 Patient medically screened. sp3 Administered Medications: 00:35 Not Given (Physician Discretion): alprazolamtablet 0.25 mg PO once vc1 00:35 Drug: Ibuprofen PO 600 mg PO once Route: PO; vc1 Disposition Summary: 08/04/23 00:33 Discharge Ordered Notes: Location: Home sp3 Condition: Stable sp3 Diagnosis - Tooth ache sp3 Followup: sp3 - With: Private Physician - When: Upon discharge from the Emergency Department - Reason: Continuance of care Discharge Instructions: - Discharge Summary Sheet sp3 - Dental Pain sp3 Forms: - Medication Reconciliation Form sp3 - Thank You Letter sp3 - Antibiotic Education sp3 - Prescription Opioid Use sp3 - Patient Portal Instructions sp3 - Leadership Thank You Letter sp3 Signatures: Edvin Calzada MD MD sp3 Kasey Ames RN RN vc1
--- NOTE | 2023-08-04 00:33 | ER ---
Nurse's Notes [facility] Name: Azalea Nunez Age: 38 yrs Sex: Female : 1985 Arrival Date: 08/04/2023 Time: 00:18 Bed IW1 Private MD: Diagnosis: Tooth ache Presentation: 08/04 00:23 Chief complaint: Patient states: Really bad dental infection that started about 4 days vc1 ago. Coronavirus screen: Vaccine status: Client denies travel out of the [place] in the last 14 days. At this time, the client does not indicate any symptoms associated with coronavirus-19. Ebola Screen: Patient negative for fever greater than or equal to 101.5 degrees Fahrenheit, and additional compatible Ebola Virus Disease symptoms Patient denies exposure to infectious person. Patient denies travel to an Ebola-affected area in the 21 days before illness onset. No symptoms or risks identified at this time. Initial Sepsis Screen: Does the patient meet any 2 criteria? No. Patient's initial sepsis screen is negative. Does the patient have a suspected source of infection? No. Patient's initial sepsis screen is negative. Risk Assessment: Do you want to hurt yourself or someone else? Patient reports no desire to harm self or others. Onset of symptoms was July 31, 2023. 00:23 Method Of Arrival: Ambulatory vc1 00:23 Acuity: VEL 4 vc1 Triage Assessment: 00:30 General: Appears in no apparent distress. uncomfortable, obese, Behavior is vc1 cooperative, appropriate for age. Pain: Complains of pain in lower right third molar Pain does not radiate. Pain currently is 10 out of 10 on a pain scale. Quality of pain is described as sharp, throbbing. EENT: Reports pain in lower right third molar. Neuro: No deficits noted. Cardiovascular: No deficits noted. Respiratory: Airway is patent Respiratory effort is even, unlabored. GI: No deficits noted. No signs and/or symptoms were reported involving the gastrointestinal system. : No deficits noted. No signs and/or symptoms were reported regarding the genitourinary system. Derm: No deficits noted. No signs and/or symptoms reported regarding the dermatologic system. Musculoskeletal: No deficits noted. No signs and/or symptoms reported regarding the musculoskeletal system. PSYCH ARNP: 00:29 LMP 06/27/2023, unknown vc1 Historical: - Allergies: 00:27 No Known Allergies; vc1 - PMHx: 00:27 Anxiety; Depression; Hypertension; Hypothyroidism; vc1 - PSHx: 00:27 None; vc1 - Social history:: Smoking status: Patient denies any tobacco usage or history of. Screenin:29 [facility] ED Fall Risk Assessment (Adult) History of falling in the last 3 months, vc1 including since admission No falls in past 3 months (0 pts) Confusion or Disorientation No (0 pts) Intoxicated or Sedated No (0 pts) Impaired Gait No (0 pts) Mobility Assist Device Used No (0 pt) Altered Elimination No (0 pt) Score/Fall Risk Level 0 - 2 = Low Risk Oriented to surroundings, Maintained a safe environment, Educated pt \T\ family on fall prevention, incl call for assistance when getting out of bed. Abuse screen: Denies threats or abuse. Nutritional screening: No deficits noted. Tuberculosis screening: No symptoms or risk factors identified. Vital Signs: 00:23 BP 148 / 92; Pulse 88; Resp 20; Pulse Ox 99% ; vc1 00:29 Weight 141.07 kg; Height 5 ft. 4 in. ; Pain 10/10; vc1 00:29 Body Mass Index 53.38 (141.07 kg, 162.56 cm) vc1 00:29 Pain Scale: Adult vc1 ED Course: 00:20 Patient arrived in ED. jj6 00:21 Edvin Calzada MD is Attending Physician. sp3 00:27 Triage completed. vc1 00:29 Arm band placed on right wrist. vc1 00:37 No provider procedures requiring assistance completed. Patient did not have IV access vc1 during this emergency room visit. Administered Medications: 00:35 Not Given (Physician Discretion): alprazolamtablet 0.25 mg PO once vc1 00:35 Drug: Ibuprofen PO 600 mg PO once Route: PO; vc1 Medication: 00:31 VIS not applicable for this client. vc1 Outcome: 00:33 Discharge ordered by . sp3 00:38 Discharged to home ambulatory, vc1 00:38 Condition: good 00:38 Discharge instructions given to patient, Instructed on discharge instructions, follow up and referral plans. Demonstrated understanding of instructions, follow-up care, 00:38 Patient left the ED. vc1 Signatures: Edvin Calzada MD MD sp3 Pamela Sigala jj6 Kasey Ames, RN RN vc1
[2023-08-04] MEDS ORDERED: IBUPROFEN 200 MG TAB PO ONE (00:47)
[2023-08-04 03:27] VITALS: BP 148/92; O2SAT 99
== END 2023-08-04 00:38 | disposition home or self-care (01) ==
LOC: ER 00:18
DX: K08.89 Other specified disorders of teeth and supporting structures (principal)
CPT/HCPCS: 99283

== ENCOUNTER 2023-08-18 05:10 | Emergency (ER) | payer SELFPAY ==
--- OUTSIDE RECORDS SUMMARY | 2023-08-18 05:13 | XMS REPORT | Continuity of Care Document ---
:1985 Author Organization [facility] t Address [address] [place] [address] Care Team Providers Name Role Phone [email or web address]_S Attending Clinician Unavailable [email or web address]_S Admitting Clinician Unavailable Problems Condition Condition Condition Status Onset Resolution Last Treating Co mments Source Name Details Category Date Date Treatment Clinician Date Abnormal Abnormal Diagnosis Active Com mon urine odor urine odor Sp chema [facility] Major Major Problem Active Common depressive depressive Sp chema disorder, disorder, - [facility] I single single [facility] episode, [facility] Anxiety Anxiety Problem Active Common disorder, disorder, Spir it unspecifie unspecifie - [facility]I d d [facility] Essential Essential Problem Active Com mon hypertensi hypertensi Sp chema on on [facility] Vaginal Vaginal Diagnosis Active Commo n itching itching [facility] BMI BMI Problem Active Common 60.0-69.9, 60.0-69.9, Sp chema adult adult [facility] Hypomenorr Hypomenorr Problem Active C ommon hea hea [facility] Allergies, Adverse Reactions, Alerts This patient has no known allergies or adverse reactions. Medications Ordered Filled Start Stop Current Ordering Indication Dosage Frequency Signature Comments Components Source Medication Medication Date Date Medication? Clinician (SIG) Name Name Bactrim DS Bactrim DS 2017- No Sudha 1 tablet Common 04-29 [facility] 00:00: 00:00 - [facility] 00 :00 [facility] Diflucan Diflucan 2017- No Sudha 1 tablet Common 04-29 [facility] 00:00: 00:00 - [facility] 00 :00 [facility] Losartan Losartan Yes Sudha 1 tablet Common Potassium Potassium [facility] Spiri t - [facility] Lorazepam Lorazepam Yes Sudha 1 tablet Common Jimenez at bedtime Spirit as needed - [facility] Citalopram Citalopram Yes Sudha 1 tablet Common Hydrobromid Hydrobromid Jimenez S pirit e e - [facility] Metoprolol Metoprolol Yes Sudha 1 tablet Common Tartrate Tartrate Jimenez with food Sp chema - [facility] Trazodone Trazodone Yes Sudha 1 tablet Common HCl HCl Jimenez at bedtime Spirit as needed - [facility] Procedures This patient has no known procedures. Encounters Start End Encounter Admission Attending Care Care Encounter Source Date/Time Date/Time Type Type Clinicians Facility Department ID 2023-07-21 2023-07-21 Outpatient [email or web address] PRIV PRIV [id number] [facility] 00:00:00 00:00:00 diyala_S [id number] Medic al 2023-07-20 2023-07-20 Outpatient [email or web address] PRIV PRIV [id number] [facility] 00:00:00 00:00:00 diyala_S [id number] Medic al 2023-04-09 2023-04-09 Outpatient [facility] [id number] Ronald 08:51:21 08:51:21 [id number] F Sidney 2023-02-20 2023-02-20 Outpatient [facility] [id number] Ronald 08:45:26 08:45:26 [id number] F Sidney 2023-01-01 2023-01-01 Outpatient [facility] [id number] Ronald 15:42:08 15:42:08 [id number] F Sidney 2018-04-29 2018-04-29 [facility] [id number] Common 10:30:00 10:30:00 [facility] - I Clinic [facility] Results Test Description Test Time Test Comments Results Result Comments Source HEMOGLOBIN A1c 2023-01-03 04:19:12 Test Item Value Reference Range Interpretation Comme nts HEMOGLOBIN A1c (test 7.1 % 4.2-5.6 H [employer] GUIDELINES FOR code = 60682) HGB A1C: PREDI ABETES/INCREASED RISK . . [...] ALTERN ATE TESTING OR LABORATORY CONSULTATION. * [facility] has important pathology staff changes e ffective 11/19/2022. New pathology staff will provide uninterrupted, excellent patie nt care and clinical consultation. S ee URL: [email or web address]. UNLESS OTHERWISE INDIC ATED, ALL TESTING PERFORMED AT CLIN[facility] [employer] [address] [place] [id number] CONVERTING OPERATOR: BRANDIE OVERTON M.D. CLIA NUMBER [id number] [place]. [id number] TSH, THIRD [id number] 06:33:42 Test Item Value Reference Range Interpretation Comments TSH, THIRD 4.580 UIU/ML 0.400-4.100 H [facility] has im portant GENERATION (test pathology s taff code = 2821) changes effecti ve 11/19/2022. New pathology staff will provide uninter rupted, excellent patie nt care and clinical consultation. S ee URL: [email or web address]. UNLES S OTHERWISE INDIC ATED, ALL TESTING PER FORMED AT CLINICAL [facility]. [address] [place] [id number] [place] [address] DIRECTOR: BRANDIE OVERTON M.D. C AZAR NUMBER [id number] CAP ACCREDITATION N O. [id number] COMPREHENSIVE METABOLIC [id number] 03:33:28 Test Item Value Reference Range Interpretation Comments GLUCOSE (test code = 126 MG/DL 70-99 H 2216) BUN (test code = 11 MG/DL 6-20 2207) CREATININE (test 0.81 MG/DL 0.60-1.30 code = 221) eGFR (2020 CKD-EPI) 97 ML/MIN/1.73 >60 (test code = 76142) CALC BUN/CREAT (test 14 RATIO 6-28 code = 2235) SODIUM (test code = 140 MEQ/L [phone]) POTASSIUM (test code 4.1 MEQ/L 3.5-5.4 = [...] code = 27 U/L 5-40 2218) LIPID [id number] 03:33:28 Test Item Value Reference Range Interpretation [...] MOREINFORMATION , SEE CLIENT ANNOUNCE MENT AT [email or web address] [email or web address] RATIO LDL/HDL 2.27 RATIO <3.22 (test code = 2238)
--- NOTE | 2023-08-18 05:50 | ER ---
Nurse's Notes [facility] Name: Azalea Nunez Age: 38 yrs Sex: Female : 1985 Arrival Date: 08/18/2023 Time: 05:10 Bed IW1 Private MD: Diagnosis: Left subconjunctival hemorrhage, left lateral subconjunctival hemorrhage Presentation: 08/18 05:38 Chief complaint: Patient states: LEFT EYE INJECTED SCLERA. Coronavirus screen: At this bp time, the client does not indicate any symptoms associated with coronavirus-19. Ebola Screen: No symptoms or risks identified at this time. Initial Sepsis Screen: Does the patient meet any 2 criteria? No. Patient's initial sepsis screen is negative. Does the patient have a suspected source of infection? No. Patient's initial sepsis screen is negative. Risk Assessment: Do you want to hurt yourself or someone else? Patient reports no desire to harm self or others. Onset of symptoms is unknown. 05:38 Method Of Arrival: Ambulatory bp 05:38 Acuity: VEL 4 bp Triage Assessment: 06:36 General: Appears in no apparent distress. Behavior is calm, cooperative, appropriate bp for age. Pain: Denies pain. Historical: - Allergies: 05:39 No Known Allergies; bp - Home Meds: 05:39 losartan 100 mg oral tablet 1 tab daily [Active]; amlodipine 10 mg oral tablet 1 tab bp daily [Active]; bupropion HCl 150 mg oral Tablet, Extended Release 24 hr 1 tab daily [Active]; sertraline 100 mg oral tablet 1 tab daily [Active]; levothyroxine 75 mcg oral tablet 1 tab daily [Active]; lorazepam 1 mg oral tablet 1 tab [Active]; - PMHx: 05:39 Anxiety; Depression; Hypertension; Hypothyroidism; bp - Immunization history:: Adult Immunizations. - Social history:: Smoking status: Patient denies any tobacco usage or history of. Screenin:37 [facility] ED Fall Risk Assessment (Adult) History of falling in the last 3 months, bp including since admission No falls in past 3 months (0 pts). Abuse screen: Denies threats or abuse. Denies injuries from another. Nutritional screening: No deficits noted. Tuberculosis screening: No symptoms or risk factors identified. Vital Signs: 05:38 BP 152 / 94; Pulse 80; Resp 16; Temp 98; Pulse Ox 100% ; Weight 140.61 kg; Height 5 ft. bp 4 in. ; 05:38 Body Mass Index 53.21 (140.61 kg, 162.56 cm) bp ED Course: 05:29 Patient arrived in ED. gm2 05:39 Triage completed. bp 05:43 Fran Bower MD is Attending Physician. sp4 05:48 Nic Orourke MD is Referral Physician. sp4 06:37 Arm band placed on. bp 06:37 Provided Education on: N/A. bp 06:37 No provider procedures requiring assistance completed. Patient did not have IV access bp during this emergency room visit. Administered Medications: No medications were administered Outcome: 05:49 Discharge ordered by . sp4 06:37 Discharged to home ambulatory, bp 06:37 Condition: stable 06:37 Discharge instructions given to patient, Instructed on discharge instructions, follow up and referral plans. Demonstrated understanding of instructions, follow-up care, 06:38 Patient left the ED. bp Signatures: Josesito Mcgee, NGOC RN bp Fran Bower MD MD sp4 Nadege Ortega gm2
--- NOTE | 2023-08-18 05:50 | EDPHYS ---
Physician Documentation [facility] Name: Azalea Nunez Age: 38 yrs Sex: Female : 1985 Arrival Date: 08/18/2023 Time: 05:10 Bed IW1 Private MD: ARPAN Physician Fran Bower HPI: 08/18 05:43 This 38 yrs old Female presents to ER via Ambulatory with complaints of Eye sp4 Swelling, Redness of Eye. Historical: - Allergies: 05:39 No Known Allergies; bp - Home Meds: 05:39 losartan 100 mg oral tablet 1 tab daily [Active]; amlodipine 10 mg oral tablet 1 tab bp daily [Active]; bupropion HCl 150 mg oral Tablet, Extended Release 24 hr 1 tab daily [Active]; sertraline 100 mg oral tablet 1 tab daily [Active]; levothyroxine 75 mcg oral tablet 1 tab daily [Active]; lorazepam 1 mg oral tablet 1 tab [Active]; - PMHx: 05:39 Anxiety; Depression; Hypertension; Hypothyroidism; bp - Immunization history:: Adult Immunizations. - Social history:: Smoking status: Patient denies any tobacco usage or history of. Vital Signs: 05:38 BP 152 / 94; Pulse 80; Resp 16; Temp 98; Pulse Ox 100% ; Weight 140.61 kg; Height 5 ft. bp 4 in. ; 05:38 Body Mass Index 53.21 (140.61 kg, 162.56 cm) bp MDM: 05:43 Patient medically screened. sp4 Administered Medications: No medications were administered Disposition Summary: 08/18/23 05:49 Discharge Ordered Notes: Location: Home sp4 Problem: new sp4 Symptoms: are unchanged sp4 Condition: Stable sp4 Diagnosis - Left subconjunctival hemorrhage, left lateral subconjunctival hemorrhage sp4 Followup: sp4 - With: Nic Orourke MD - When: As needed - Reason: Discharge Instructions: - Discharge Summary Sheet sp4 - Subconjunctival Hemorrhage sp4 Forms: - Work release form bp - Patient Portal Instructions sp4 Signatures: Josesito Mcgee RN RN bp Potepalov, Sergey, MD MD sp4
[2023-08-18 06:43] VITALS: BP 152/94; TEMP 98; O2SAT 100
== END 2023-08-18 06:38 | disposition home or self-care (01) ==
LOC: ER 05:10
DX: H11.32 Conjunctival hemorrhage, left eye (principal)
CPT/HCPCS: 99282

== ENCOUNTER → 2023-11-07 | Emergency (ER) | payer SELFPAY ==
[~2023-11-07] MED LIST: dexAMETHasone 10 MG/ML VIAL ONE
--- OUTSIDE RECORDS SUMMARY | 2023-11-07 15:25 | XMS REPORT | Continuity of Care Document ---
Author Name Unknown Address [address] [address] [address] [place] [address] [facility] thconnect Address [address] [address] [address] [place] [address] Care Team Providers Care Pest Locator Name Role Phone [email or web address]_S Attending Clinician Katherinea ble [email or web address]_S Admitting Clinician Unavaila ble Problems Condition Name Condition Details Condition Category Status Onset Date Resolution Date Last Treatment Date Treating Clinician Comments Source Abnormal urine odor Abnormal urine odor Diagnosis Active [facility] Major depressive disorder, single episode, unspecifie d Major depressive disorder, single episode, unspecifie d Problem Active [facility] Anxiety disorder, unspecifie d Anxiety disorder, unspecifie d Problem Active [facility] Essential hypertensi on Essential hypertensi on Problem Active [facility] Vaginal itching Vaginal itching Diagnosis Active [facility] BMI 60.0-69.9, adult BMI 60.0-69.9, adult Problem Active [facility] Hypomenorr hea Hypomenorr hea Problem Active [facility] Medications Ordered Medication Name Filled Medication Name Start Date Stop Date Current Medication? Ordering Clinician Indication Dosage Frequency Signature (SIG) Comments Components Source Bactrim DS Bactrim DS 04-29 00:00: 00 05-02 00:00 :00 No Sudha Jimenez 1 tablet [facility] Diflucan Diflucan 04-29 00:00: 00 05-01 00:00 :00 No Sudha Jimenez 1 tablet [facility] Losartan Potassium Losartan Potassium Yes Sudha Jimenez 1 tablet [facility] Lorazepam Lorazepam Yes Sudha Jimenez 1 tablet at bedtime as needed [facility] Citalopram Hydrobromid e Citalopram Hydrobromid e Yes Sudha Jimenez 1 tablet [facility] Metoprolol Tartrate Metoprolol Tartrate Yes Sudha Jimenez 1 tablet with food [facility] Trazodone HCl Trazodone HCl Yes Sudha Jimenez 1 tablet at bedtime as needed [facility] Encounters Start Date/Time End Date/Time Encounter Type Admission Type Attending Clinicians Care Facility Care Department Encounter ID Source 2023-07-21 00:00:00 2023-07-21 00:00:00 Outpatient [email or web address] diyala_S PRIV PRIV [id number] [facility] 2023-07-20 00:00:00 2023-07-20 00:00:00 Outpatient [email or web address] diyala_S PRIV PRIV [id number] [facility] 2023-04-09 08:51:21 2023-04-09 08:51:21 Outpatient [facility] [id number] Ronald Little 2023-02-20 08:45:26 2023-02-20 08:45:26 Outpatient [facility] [id number] Ronald Little 2023-01-01 15:42:08 2023-01-01 15:42:08 Outpatient [facility] [id number] Ronald Little 2018-04-29 10:30:00 2018-04-29 10:30:00 [facility] [id number] [facility] Results Test Description Test Time Test Comments Results Result Co mments Source TSH, THIRD [id number] 06:33:42* Test Item Value Reference Range Interpretation Comme nts TSH, THIRD GENERATION (test code = 2821) 4.580 UIU/ML 0.400-4.100 H [facility] has impo rtant pathology staff changes effective 11/19/2022. New pathology staff will provide uninterrupted, excellent patient care and clinical consultation. See URL: [email or web address]. UNLESS OTHERWISE INDICATED, ALL TESTING PERFORMED AT [facility] [address] [place] [address] CIGARETTE TIPPER: ANNE-MARIE OVERTON M.D. CLIA NUMBER [id number] [facility] [place] [id number] COMPREHENSIVE METABOLIC [id number] 03:33:28* Test Item Value Reference Range Interpretation Comme nts GLUCOSE (test code = 2217) 126 MG/DL 70-99 H BUN (test code = 2208) 11 MG/DL 6-20 CREATININE (test code = 2214) 0.81 MG/DL 0.60-1.30 eGFR (2020 CKD-EPI) (test code = 70306) 97 ML/MIN/1.73 >60 CALC BUN/CREAT (test code = 2235) 14 RATIO 6-28 SODIUM (test code = 223) 140 MEQ/L 133-146 POTASSIUM (test code = 2228) 4.1 MEQ/L 3.5-5.4 CHLORIDE (test code = 2215) 103 MEQ/L 95-107 CARBON DIOXIDE (test code = 2206) 29 MEQ/L 19-31 CALCIUM (test code = 2209) 9.4 MG/DL 8.5-10.5 PROTEIN, TOTAL (test code = 2229) 6.9 G/DL 6.1-8.3 ALBUMIN (test code = 2201) 4.1 G/DL 3.5-5.2 CALC GLOBULIN (test code = 2240) 2.8 G/DL 1.9-3.7 CALC A/G RATIO (test code = 2234) 1.5 RATIO 1.0-2.6 BILIRUBIN, TOTAL (test code = 2207) <0.2 MG/DL See_Comment [Automated me ssage] The system which generated this result transmitted reference range: <=1.2. The reference range was not used to interpret this result as normal/abnormal. ALKALINE PHOSPHATASE (test code = 2204) 141 U/L 40-114 H AST (test code = 2218) 20 U/L 9-40 ALT (test code = 2219) 27 U/L 5-40 LIPID [id number] 03:33:28* Test Item Value Reference Range Interpretation Comme nts CHOLESTEROL (test code = 2210) 174 MG/DL <200 TRIGLYCERIDES (test code = 2232) 169 MG/DL <150 H HDL CHOLESTEROL (test code = 2220) 45 MG/DL >39 CALC LDL CHOL (test code = 2237) 102 MG/DL <100 H NOTE: CALCULATED LDL IS BASED ON BK-YING METHOD WHICHINCLUDES ADJUSTABLE TRIGLYCERIDE:VLDL CHOLESTEROL RATIO.THIS FACTOR VARIES BY MEASURED TRIGLYCERIDE AND NON-HDLCHOLESTEROL CONCENTRATIONS WITH INCREASED CALCULATED LDL SEENIN HIGHER TRIGLYCERIDE OR LOWER NON-HDL SPECIMENS. FOR MOREINFORMATION, SEE CLIENT ANNOUNCEMENT AT [email or web address] RATIO LDL/HDL (test code = 2238) 2.27 RATIO <3.22
[2023-11-07 16:16] LABS: SARS-CoV-2 Antigen Rapid Res Negative (Negative)
--- NOTE | 2023-11-07 17:38 | EDPHYS ---
Physician Documentation [facility] Name: Azalea Nunez Age: 38 yrs Sex: Female : 1985 Arrival Date: 11/07/2023 Time: 15:22 Bed IW1 Private MD: ED Physician Sherif Pa HPI: 11/07 15:58 This 38 yrs old Female presents to ER via Ambulatory with complaints of kb General Weakness, Pain All Over, Cough. 15:58 Pt is a 38 year old female who presents for cough, congestion, bodyaches, sore throat kb that started about 2 weeks ago and got worse yesterday. . Historical: - Allergies: 15:43 No Known Allergies; nj1 - PMHx: 15:43 Anxiety; Depression; Hypertension; Hypothyroidism; nj1 - Immunization history:: Client reports having NOT received the Covid vaccine. - Social history:: Smoking status: Patient reports the use of cigarette tobacco products, denies chronic smoking, but will smoke occasionally. ROS: 15:57 Neuro: Negative for headache, weakness, numbness, tingling, and seizure, kb 15:57 Constitutional: Positive for body aches, fatigue, malaise, 15:57 ENT: Positive for rhinorrhea, sinus congestion, sore throat, 15:57 Respiratory: Positive for cough, 15:57 All other systems are negative, Exam: 15:57 Constitutional: This is a well developed, well nourished patient who is awake, alert, kb and in no acute distress. Head/Face: Normocephalic, atraumatic. ENT: Moist Mucous membranes Cardiovascular: Regular rate Respiratory: Respirations even and unlabored. No increased work of breathing. Talking in full sentences Abdomen/GI: Soft, non-tender. No distention Skin: Warm, dry with normal turgor. Normal color. MS/ Extremity: Pulses equal, no cyanosis. Neurovascular intact. Full, normal range of motion. Neuro: Awake and alert, GCS 15, oriented to person, place, time, and situation. Moves all extremities. Normal gait. Vital Signs: 15:42 BP 141 / 96; Pulse 79; Resp 18; Temp 98.8(O); Pulse Ox 97% ; Weight 140.61 kg; Height 5 nj1 ft. 4 in. ; Pain 8/10; 18:40 BP 145 / 68; Pulse 78; Resp 18; Temp 98.5; Pulse Ox 98% on R/A; nj1 15:42 Body Mass Index 53.21 (140.61 kg, 162.56 cm) nj 15:42 Pain Scale: Adult nj1 MDM: 15:24 Patient medically screened. 15:58 Differential Diagnosis: Bronchitis Influenza Upper Respiratory Infection Other strep, kb covid, allergic rhinitis. Data reviewed: vital signs, nurses notes. 17:37 I considered the following discharge prescriptions or medication management in the emergency department I discussed and recommended Over The Counter medications, Antibiotics: At this time antibiotics are not recommended, Antivirals: At this time, antivirals are not recommended. Counseling: I had a detailed discussion with the patient and/or guardian regarding the historical points, exam findings, and any diagnostic results supporting the discharge/admit diagnosis, lab results, the need for outpatient follow up, a family practitioner, to return to the emergency department if symptoms worsen or persist or if there are any questions or concerns that arise at home. 11/07 15:42 Order name: Flu; Complete Time: 16:45 11/07 15:42 Order name: SARS-COV-2 Antigen Rapid; Complete Time: 16:20 11/07 15:42 Order name: Strep 11/07 17:11 Order name: Throat Culture EDMS Administered Medications: 15:55 Drug: Dexamethasone IM 10 mg IM once Route: IM; Site: right deltoid; nj 18:40 Follow up: Response: No adverse reaction nj1 Disposition Summary: 11/07/23 17:38 Discharge Ordered Notes: Location: Home Condition: Stable Diagnosis - Cough kb Followup: kb - With: Emergency Department - When: As needed - Reason: Worsening of condition Followup: kb - With: Private Physician - When: 2 - 3 days - Reason: Recheck today's complaints, Continuance of care, Re-evaluation by your physician Discharge Instructions: - Discharge Summary Sheet kb - Cough, Adult, [id number] kb Forms: - Medication Reconciliation Form kb - Thank You Letter kb - Antibiotic Education kb - Prescription Opioid Use kb - Patient Portal Instructions kb - Leadership Thank You Letter kb - Work release form eb Prescriptions: - Prednisone 20 mg Oral Tablet - take 1 tablet ORAL route once daily for 5 days; 5 tablet; Refills: 0, Product kb Selection Permitted Signatures: Dispatcher [employer] Billie Truong, INFORMATION ARCHITECT-C INFORMATION ARCHITECT-Ckb Adia Beverly, RN RN nj1
--- NOTE | 2023-11-07 17:38 | ER ---
Nurse's Notes [facility] Name: Azalea Nunez Age: 38 yrs Sex: Female : 1985 Arrival Date: 11/07/2023 Time: 15:22 Bed IW1 Private MD: Diagnosis: Cough Presentation: 11/07 15:42 Chief complaint: Patient states: Body aches, cough, congestion, itchy throat for weeks, nj1 worse yesterday. Denies fever. Coronavirus screen: Vaccine status: Patient reports being unvaccinated. Ebola Screen: Patient denies travel to an Ebola-affected area in the 21 days before illness onset. Initial Sepsis Screen: Does the patient meet any 2 criteria? No. Patient's initial sepsis screen is negative. Does the patient have a suspected source of infection? No. Patient's initial sepsis screen is negative. Risk Assessment: Do you want to hurt yourself or someone else? Patient reports no desire to harm self or others. Onset of symptoms was October 2023. 15:42 Method Of Arrival: Ambulatory [facility] 15:42 Acuity: VEL 4 [facility] Triage Assessment: 15:45 General: Appears in no apparent distress. comfortable, Behavior is calm, cooperative, hb appropriate for age. Historical: - Allergies: 15:43 No Known Allergies; nj1 - PMHx: 15:43 Anxiety; Depression; Hypertension; Hypothyroidism; nj1 - Immunization history:: Client reports having NOT received the Covid vaccine. - Social history:: Smoking status: Patient reports the use of cigarette tobacco products, denies chronic smoking, but will smoke occasionally. Assessment: 18:42 Reassessment: Patient appears in no apparent distress at this time. Patient is alert, nj1 oriented x 3, equal unlabored respirations, skin warm/dry/pink. Vital Signs: 15:42 BP 141 / 96; Pulse 79; Resp 18; Temp 98.8(O); Pulse Ox 97% ; Weight 140.61 kg; Height 5 nj1 ft. 4 in. ; Pain 8/10; 18:40 BP 145 / 68; Pulse 78; Resp 18; Temp 98.5; Pulse Ox 98% on R/A; [facility] 15:42 Body Mass Index 53.21 (140.61 kg, 162.56 cm) [facility] 15:42 Pain Scale: Adult nj1 ED Course: 15:24 Patient arrived in ED. ts1 15:24 Billie Villafana FNP-C [facility]. kb 15:24 Sherif Pa MD is Attending Physician. kb 15:43 Triage completed. nj1 15:44 Arm band placed on right wrist. nj1 15:55 Strep Sent. nj1 15:55 SARS-COV-2 Antigen Rapid Sent. nj1 15:55 Flu Sent. nj1 18:42 No provider procedures requiring assistance completed. Patient did not have IV access nj1 during this emergency room visit. Administered Medications: 15:55 Drug: Dexamethasone IM 10 mg IM once Route: IM; Site: right deltoid; nj1 18:40 Follow up: Response: No adverse reaction nj1 Medication: 18:43 VIS not applicable for this client. nj1 Outcome: 17:38 Discharge ordered by . kb 18:42 Discharged to home ambulatory, nj1 18:42 Condition: stable 18:42 Discharge instructions given to patient, Instructed on discharge instructions, follow up and referral plans. medication usage, Demonstrated understanding of instructions, follow-up care, medications, Prescriptions given X 1, 18:43 Patient left the ED. nj1 Signatures: Billie Villafana FNP-C DAIRY CONSULTANT-Ckb Tina Arellano RN RN Adia Beverly RN RN nj1 Falguni Tom PAS PAS ts1
[2023-11-07 19:01] VITALS: BP 145/68; TEMP 98.5; O2SAT 98
== END ==
LOC: ER 15:22
DX: O26.893 Other specified pregnancy related conditions, third trimester (principal); R05.9 Cough, unspecified; O99.333 Smoking (tobacco) complicating pregnancy, third trimester; F17.210 Nicotine dependence, cigarettes, uncomplicated; Z3A.36 36 weeks gestation of pregnancy; Z11.52 Encounter for screening for COVID-19
CPT/HCPCS: 36415; 87070; 87081; 87804; 87811; 96372; 99284; J1100

== ENCOUNTER → 2023-12-08 | Emergency (ER) | payer OTHER ==
--- OUTSIDE RECORDS SUMMARY | 2023-12-08 14:30 | XMS REPORT | Continuity of Care Document ---
Author Name Unknown Address [address] [address] [address] [place] [address] [facility] Address [address] [address] [address] [place] [address] Care Team Providers Care Inspector Repairer Sandstone Name Role Phone [email or web address]_S Attending Clinician Unavaila ble [email or web address]_S Admitting Clinician Unavaila ble Problems Condition Name Condition Details Condition Category Status Onset Date Resolution Date Last Treatment Date Treating Clinician Comments Source Abnormal urine odor Abnormal urine odor Diagnosis Active [facility] Major depressive disorder, single episode, unspecifie d Major depressive disorder, single episode, unspecifie d Problem Active [facility] Anxiety disorder, unspecifie d Anxiety disorder, unspecifie d Problem Active [facility] Essential hypertensi on Essential hypertensi on Problem Active [facility] Vaginal itching Vaginal itching Diagnosis Active [facility] BMI 60.0-69.9, adult BMI 60.0-69.9, adult Problem Active [facility] Hypomenorr hea Hypomenorr hea Problem Active [facility] Medications Ordered Medication Name Filled Medication Name Start Date Stop Date Current Medication? Ordering Clinician Indication Dosage Frequency Signature (SIG) Comments Components Source Bactrim DS Bactrim DS 04-29 00:00: 00 05-02 00:00 :00 No Sudha Jimenez 1 tablet [facility] Diflucan Diflucan 04-29 00:00: 00 05-01 00:00 :00 No Sudha Jimenez 1 tablet [facility] Losartan Potassium Losartan Potassium Yes Sudha Jimenez 1 tablet [facility] Lorazepam Lorazepam Yes Sudha Jimenez 1 tablet at bedtime as needed [facility] Citalopram Hydrobromid e Citalopram Hydrobromid e Yes Sudha Jimenez 1 tablet [facility] Metoprolol Tartrate Metoprolol Tartrate Yes Sudha Jimenez 1 tablet with food [facility] Trazodone HCl Trazodone HCl Yes Sudha Jimenez 1 tablet at bedtime as needed [facility] Encounters Start Date/Time End Date/Time Encounter Type Admission Type Attending Clinicians Care Facility Care Department Encounter ID Source 2023-07-21 00:00:00 2023-07-21 00:00:00 Outpatient [email or web address] diyala_S PRIV PRIV [id number] [facility] 2023-07-20 00:00:00 2023-07-20 00:00:00 Outpatient GC_[email or web address]_Ka diyala_S PRIV PRIV [id number] [facility] 2023-04-09 08:51:21 2023-04-09 08:51:21 Outpatient [facility] [id number] Ronald Little 2023-02-20 08:45:26 2023-02-20 08:45:26 Outpatient [facility] [id number] Ronald Little 2023-01-01 15:42:08 2023-01-01 15:42:08 Outpatient [facility] [id number] Ronald Little 2018-04-29 10:30:00 2018-04-29 10:30:00 Outpatient [facility] [id number] [facility] Results Test Description Test Time Test Comments Results Result Co mments Source TSH, THIRD [id number] 06:33:42* Test Item Value Reference Range Interpretation Comme nts TSH, THIRD GENERATION (test code = 2821) 4.580 UIU/ML 0.400-4.[address] [facility] has impo rtant pathology staff changes effective 11/19/2022. New pathology staff will provide uninterrupted, excellent patient care and clinical consultation. See URL: [email or web address]. UNLESS OTHERWISE INDICATED, ALL TESTING PERFORMED AT [facility] [address] [place] [id number] PRINCIPAL SYSTEMS ENGINEER: ANNE-MARIE OVERTON M.D. CLIA NUMBER [id number] [facility] [place]. [id number] COMPREHENSIVE METABOLIC [id number] 03:33:28* Test Item Value Reference Range Interpretation Comme nts GLUCOSE (test code = 2217) 126 MG/DL 70-99 H BUN (test code = 2208) 11 MG/DL 6-20 CREATININE (test code = 2214) 0.81 MG/DL 0.60-1.30 eGFR (2020 CKD-EPI) (test code = 51753) 97 ML/MIN/1.73 >60 CALC BUN/CREAT (test code [...] code = 2219) 27 U/L 5-40 LIPID [id number] 03:33:28* Test Item Value Reference Range Interpretation [...] SPECIMENS. FOR MOREINFORMATION, SEE CLIENT ANNOUNCEMENT AT [email or web address] RATIO LDL/HDL (test code = 2238) 2.27 RATIO <3.22
--- NOTE | 2023-12-08 15:57 | EDPHYS ---
Physician Documentation [facility] Name: Azalea Nunez Age: 38 yrs Sex: Female : 1985 Arrival Date: 12/08/2023 Time: 14:28 Bed IW4 Private MD: ED Physician Kirk Apodaca HPI: 12/07 15:34 This 38 yrs old Female presents to ER via Ambulatory with complaints of Mental kb Health Evaluation. 15:34 Pt is a 38 year old female who presents for worsening depression over the last 3 weeks. kb States she has had increased stress due to family illnesses with her sister and father. States she hasn't wanted to get out of bed to do anything, including going to work. States she is supposed to go back to work tomorrow and doesn't think she can so she called her PCP for appt, but is unable to be seen until next week so she came here. Denies homicidal or suicidal ideations.. 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 Flu vaccine is not up to date. - Social history:: Smoking status: Patient reports the use of cigarette tobacco products, denies chronic smoking, but will smoke occasionally. ROS: 15:33 Constitutional: As per HPI kb Exam: 15:33 Constitutional: This is a well developed, well nourished patient who is awake, alert, kb and in no acute distress. Head/Face: Normocephalic, atraumatic. ENT: Moist Mucous membranes Cardiovascular: Regular rate Respiratory: Respirations even and unlabored. No increased work of breathing. Talking in full sentences Abdomen/GI: Soft, non-tender. No distention Skin: Warm, dry with normal turgor. Normal color. MS/ Extremity: Pulses equal, no cyanosis. Neurovascular intact. Full, normal range of motion. Neuro: Awake and alert, GCS 15, oriented to person, place, time, and situation. Moves all extremities. Normal gait. Psych: Awake, alert, with orientation to person, place and time. Behavior, mood, and affect are within normal limits. Vital Signs: 14:51 BP 149 / 97; Pulse 88; Resp 17; Temp 97.9; Pulse Ox 99% ; ap3 14:56 Weight 140.61 kg; Height 5 ft. 4 in. ; ap3 14:56 Body Mass Index 53.21 (140.61 kg, 162.56 cm) ap3 MDM: 14:34 Patient medically screened. 15:33 Data reviewed: vital signs, nurses notes. 15:33 Differential diagnosis: acute psychotic break, depression. ED course: Pt prefers to kb leave the ER at this time. Requests a note for work and states she will follow up with PCP as scheduled. Continues to deny suicidal ideations. . 12/07 15:24 Order name: EKG - Nurse/Tech 12/07 15:24 Order name: IV Saline Lock 12/07 15:24 Order name: Labs collected and sent 12/07 15:24 Order name: Suicide Screening (Redd) kb Administered Medications: No medications were administered Disposition Summary: 12/08/23 15:31 Discharge Ordered Notes: Location: Home kb Condition: Stable kb Diagnosis - Depression kb Followup: kb - With: Emergency Department - When: As needed - Reason: Worsening of condition Followup: kb - With: Private Physician - When: 2 - 3 days - Reason: Recheck today's complaints, Continuance of care, Re-evaluation by your physician Discharge Instructions: - Discharge Summary Sheet kb - Major Depressive Disorder, Adult, [id number] kb Forms: - Work release form kb - Medication Reconciliation Form kb - Thank You Letter kb - Antibiotic Education kb - Prescription Opioid Use kb - Patient Portal Instructions kb - Leadership Thank You Letter kb Signatures: Billie Villafana FNP-C FNP-Rosie Yang, RN RN ap3
--- NOTE | 2023-12-08 15:57 | ER ---
Nurse's Notes [facility] Name: Azalea Nunez Age: 38 yrs Sex: Female : 1985 Arrival Date: 12/08/2023 Time: 14:28 Bed IW4 Private MD: Diagnosis: Depression Presentation: 12/07 14:51 Chief complaint: Patient states: her PCP sent her over due to him not being able to get ap3 her in for evaluation. patient states she just lays in bed and cries. she does not feel like herself. Patient stats this has been going on for approx 3 weeks. patient denies SI and HI at this time, but states she was having more thoughts of feeling like "I wish I wasn't here" last night, and reports "having crazy thoughts and feelings". Coronavirus screen: At this time, the client does not indicate any symptoms associated with coronavirus-19. Ebola Screen: No symptoms or risks identified at this time. Initial Sepsis Screen: Does the patient meet any 2 criteria? No. Patient's initial sepsis screen is negative. Does the patient have a suspected source of infection? No. Patient's initial sepsis screen is negative. Risk Assessment: Do you want to hurt yourself or someone else? Patient reports no desire to harm self or others. Onset of symptoms is unknown. 14:51 Method Of Arrival: Ambulatory ap3 14:51 Acuity: VEL 2 ap3 Triage Assessment: 14:56 General: Appears distressed, Behavior is cooperative, crying. Pain: Denies pain. Neuro: ap3 Level of Consciousness is awake, alert, obeys commands, Oriented to person, place, time, situation, Appropriate for age. Cardiovascular: Patient's skin is warm and dry. Respiratory: Airway is patent Respiratory effort is even, unlabored, Respiratory pattern is regular, symmetrical. 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 Flu vaccine is not up to date. - Social history:: Smoking status: Patient reports the use of cigarette tobacco products, denies chronic smoking, but will smoke occasionally. Screenin:17 [facility] ED Fall Risk Assessment (Adult) History of falling in the last 3 months, ll1 including since admission No falls in past 3 months (0 pts) Confusion or Disorientation No (0 pts) Intoxicated or Sedated No (0 pts) Impaired Gait No (0 pts) Mobility Assist Device Used No (0 pt) Altered Elimination No (0 pt) Score/Fall Risk Level 0 - 2 = Low Risk Maintained a safe environment. Abuse screen: Denies threats or abuse. Nutritional screening: No deficits noted. Tuberculosis screening: No symptoms or risk factors identified. Assessment: 15:45 General: Appears in no apparent distress. Behavior is calm, cooperative, appropriate ll1 for age. General: Reports sleeping a lot, loss of interest in every day activities. No SI or HI at this time. Pain: Denies pain. Vital Signs: 14:51 BP 149 / 97; Pulse 88; Resp 17; Temp 97.9; Pulse Ox 99% ; ap3 14:56 Weight 140.61 kg; Height 5 ft. 4 in. ; ap3 14:56 Body Mass Index 53.21 (140.61 kg, 162.56 cm) ap3 ED Course: 14:31 Patient arrived in ED. im 14:33 Billie Villafana FNP-C [facility] kb 14:33 Kirk Apodaca MD is Attending Physician. kb 14:56 Triage completed. ap3 14:57 Arm band placed on right wrist. ap3 15:49 No provider procedures requiring assistance completed. Patient did not have IV access ll1 during this emergency room visit. 16:17 Patient has correct armband on for positive identification. Provided Education on: ll1 follow-up with PCP, work note given.. Administered Medications: No medications were administered Medication: 16:18 VIS not applicable for this client. ll1 Outcome: 15:31 Discharge ordered by MD. kb 15:49 Patient left the ED. ll1 16:17 Discharged to home ambulatory, ll1 16:17 Condition: stable 16:17 Discharge instructions given to patient, Instructed on discharge instructions, follow up and referral plans. Demonstrated understanding of instructions, follow-up care, Signatures: Billie Villafana FNP-C FNP-Ckb Prokisch, Amanda, RN RN ap3 Sergio Vallejo RN RN ll1 Palomo, Janice im
[2023-12-08 18:11] VITALS: BP 149/97; TEMP 97.9; O2SAT 99
== END ==
LOC: ER 14:28
DX: F32.A Depression, unspecified (principal)